=== PATIENT | female | born 1985 | race Two or more races ===

== ENCOUNTER 2020-08-26 07:57 | Emergency (ER) | payer MEDICAID, SELFPAY ==
[2020-08-26 08:14] VITALS: BP 115/66; PULSE 109; RESP 20; TEMP 37.4; O2SAT 98; BMI 21.4
--- NOTE | 2020-08-26 08:25 | ED_ITS ---
HPI - URI/Sore Throat General Chief Complaint: Upper Respiratory Symptoms Stated Complaint: flu like Time Seen by Provider: 08/26/20 08:22 Source: patient Mode of arrival: ambulatory History of Present Illness HPI Narrative: 35-year-old female presenting to ED complaining of dry cough and generalized body aches/myalgias since yesterday. Admits to mild SOB while coughing yesterday. Denies fever at home, chills, CP, recent travel, sick c ontacts, sore throat MD elicited complaint: cough Related Data Allergies Allergy/AdvReac Type Severity Reaction Status Date / Time No Known Allergies Allergy Unverified 07/01/20 17:13 [No Known Allergies*] Review of Systems Review of Systems: Constitutional: No Weight loss, No Fever, No Chills ENT/Mouth: No Ear Pain, No Nasal Congestion, No Sinus Pain, No Hoarseness, No sore throat Cardiovascular: No Chest Pain, + SOB yesterday when coughing Respiratory: + Cough, No Sputum, No Wheezing Gastrointestinal: No Nausea, No Vomiting, No Diarrhea, No Constipation, No Abdominal pain Musculoskeletal: No joint pain, + Myalgias, No Joint Swelling Skin: No Skin Lesions, No rash Yes all other systems are reviewed and are negative PMFSH Past Medical History Attestation statement: The following information was validated with the patient. Medical History History of melanoma Hx of breast lump Surgical History History of loop electrical excision procedure (LEEP) Hx of breast augmentation Hx of oral surgery Hx of tubal ligation Family History Family History Father Diabetes mellitus Mother Hypertension Maternal Grandmother History of breast cancer Social History Social History Alcohol intake: never Smoking Status: Never smoker Advance Directives: No Advance Directives Information Provided: Yes Physical Exam Vital Signs: Vital Signs: Last Vital Signs Temp 99.4 F 08/26/20 08:14 Pulse 109 H 08/26/20 08:14 Resp 20 08/26/20 08:14 BP 115/66 08/26/20 08:14 Pulse Ox 98 08/26/20 08:14 Body Mass Index 21.4 Const: Other: Tearful/crying on exam General: cooperative and healthy appearing Orientation/consciousness: patient oriented x3 Limitations: no limitations HENMT: Head: Yes normal to inspection Ears: hearing grossly normal bilaterally General nose exam: Normal external nose present Face and sinus: Yes normal facial exam Eyes: General: appearance normal, both eyes and all related structures EOM: EOMs intact bilaterally Neck: Neck: Yes normal visual inspection Resp: Effort & Inspection: normal respiratory effort Auscultation: clear to auscultation bilaterally, no crackles, no rales, no rhonchi and no wheezes Cardio: Rate: regular rate Heart sounds: S1 normal heart sound present and S2 normal heart sound present Skin: Rashes: no rashes Wounds: no wounds Neuro: General: patient oriented x3 Gait exam (Neuro): Normal gait present Extrem: General: Yes normal to inspection MDM - URI/Sore Throat MDM Narrative Medical decision making narrative: On exam low-grade temp 99.4?, tachycardic likely from low-grade fever/tearful on exam, NAD/nontoxic-appearing, lungs CTA. Concern for COVID-19/viral syndrome. Low concern for pneumonia, PE, or ACS Discharge Plan Discharge Clinical Impression: Upper respiratory infection Patient Disposition: Home, Self-Care Instructions: Upper Respiratory Infection (ED) Additional Instructions: Based on your symptoms and history we have sent a COVID-19. Although your RESULT IS PENDING at this time. RESULTS should return within 72 hours. At this time you will be contacted with either NEGATIVE OR POSITIVE results. -Please wait until we contact you for your results. At this time you will be okay for discharge. Please plan for self quarantine for up to 14 days. Do not expose yourself to others. You may not go to work. If testing does come back negative you may return to activities as long as you are no longer having any symptoms for at least 3 days. Please continue to follow cold instructions and wash your hands frequently. You may take Tylenol as directed on the bottle for pain or fever. Patient seen in the emergency department on 04/09/2020 and should be excused from work until negative test results AND until 72 hours without any symptoms AND at least 10 days have passed since symptoms first appeared or since last exposure to COVID-19 positive patient CDC Guidelines for home isolation: - Stay away from others - WEAR A MASK if you are sick AND STAY HOME - Cover your mouth and nose with a tissue when you cough or sneeze. Dispose of tissues in a lined trash can and wash your hands immediately with soap and water for at least 20 seconds. If soap and water are not available, clean hands with alcohol-based hand treating plant supervisor that contains at least 60% alcohol. - Clean your hands often with soap and water for at least 20 seconds - Avoid touching your eyes, nose and mouth with unwashed hands - Do not share dishes, drinking glasses, cups, eating utensils, towels, or bedding with other people in your home. After using these items, wash them thoroughly with soap and water or put in the liquefied natural gas operator. - Clean high-touch surfaces in your isolation area ( sick room and bathroom) every day; let a caregiver clean and disinfect high-touch surfaces in other areas of the home. Clean the area or item with soap and water or another detergent if it is dirty. Then, use a household disinfectant. - Limit contact with pets and animals: If you must care for a pet, wash your hands before and after interacting with them) Referrals: Vic Maurer MD [Primary Care Provider] - 3 days Stand Alone Forms: Work/School Release
== END 2020-08-26 08:38 | disposition home or self-care (01) ==
PROVIDERS: Physician Assistant; Emergency Provider Emergency Medicine; PCP Internal Medicine
DX: J06.9 Acute upper respiratory infection, unspecified (principal); R05 Cough; Z20.828 Contact with and (suspected) exposure to other viral communicable diseases
CPT/HCPCS: 99283; U0003

== ENCOUNTER 2020-09-01 12:19 | Outpatient (REF) | payer MEDICAID, SELFPAY | END 2020-09-01 12:20 | disposition home or self-care (01) | LOC: HO.LAB 12:19 | PROVIDERS: Visit Provider Internal Medicine | DX: Z20.828 Contact with and (suspected) exposure to other viral communicable diseases (principal) | CPT/HCPCS: C9803; U0003 ==

== ENCOUNTER 2020-10-26 12:10 | Outpatient (REF) | payer MEDICAID, SELFPAY | END 2020-10-26 12:11 | disposition home or self-care (01) | LOC: HO.LAB 12:10 | PROVIDERS: PCP Internal Medicine; Visit Provider Internal Medicine | DX: Z20.822 Contact with and (suspected) exposure to COVID-19 (principal) | CPT/HCPCS: 36415; C9803; U0003 ==

== ENCOUNTER 2021-01-05 13:24 | Outpatient (REF) | payer MEDICAID, SELFPAY ==
[2021-01-05 17:33] LABS: CT PCR NOT DETECTED (Not Detect.); NG PCR NOT DETECTED (Not Detect.)
[2021-01-06 09:05] LABS: BV Int Neg Control Negative (Negative); BV Int Pos Control Positive (Positive)
== END 2021-01-05 13:25 | disposition home or self-care (01) ==
LOC: HO.LAB 13:24
PROVIDERS: PCP Internal Medicine; Visit Provider Advanced Practice Midwife
DX: Z12.4 Encounter for screening for malignant neoplasm of cervix (principal); Z11.3 Encounter for screening for infections with a predominantly sexual mode of transmission; R10.2 Pelvic and perineal pain
CPT/HCPCS: 81003; 81025; 87480; 87491; 87510; 87591; 87660; 99212

== ENCOUNTER 2021-09-03 09:00 | Emergency (ER) | payer MEDICAID, SELFPAY ==
--- NOTE | ~2021-09-03 | CT_ITS ---
EXAMINATION: CT ABDOMEN AND PELVIS WITH CONTRAST CLINICAL INFORMATION: Right flank pain. UTI symptoms. COMPARISON: . TECHNIQUE: Multidetector volumetric images were obtained from the superior aspect of the liver through the pubic symphysis following administration 85 mL of Omnipaque 350 intravenous contrast. Sagittal and coronal reformatted images were obtained on the technologist's workstation. Oral contrast: No This CT examination was performed using dose optimization techniques as appropriate, variously including the following: *Automated exposure control *Adjustment of mA and/or kV according to patient size (this includes techniques or standardized protocols for targeted exams where dose is matched to indication/reason for exam; i.e. extremities or head) *Use of iterative reconstruction technique DLP: 390 mGy-cm FINDINGS: LUNG BASES: The visualized lung bases are unremarkable. LIVER, GALLBLADDER, AND BILIARY TREE: The liver is normal in size, shape, and attenuation. A circumscribed hypoattenuating lesion in segment 4 measures 0.8 cm unchanged from previous. This is too small to characterize. There is mild periportal edema. There is normal vascular enhancement. No ductal dilatation. There is trace pericholecystic fluid. No cholelithiasis is demonstrated. PANCREAS: Unremarkable. SPLEEN: Unremarkable. ADRENAL GLANDS: Unremarkable. KIDNEYS AND URETERS: There is mild hydroureteronephrosis of the left kidney. No calculus is demonstrated. Both kidneys show normal enhancement with no focal lesion or other abnormality. BLADDER: Unremarkable. GASTROINTESTINAL TRACT: The stomach and duodenum are unremarkable. No abnormality of the small bowel or mesentery is demonstrated. The colon is unremarkable. There is moderate retained stool. The appendix is normal. ABDOMINAL WALL: No significant hernia is appreciated. LYMPH NODES: Normal. VASCULAR: Unremarkable. PELVIC VISCERA: A cyst in the right ovary measures 2.6 cm in diameter. The uterus and left adnexa are unremarkable. Dilated pelvic veins are again demonstrated. There is no free fluid. OSSEOUS STRUCTURES: Unremarkable. CT/CT abdomen pelvis w con IMPRESSION: 1. Mild periportal edema with trace pericholecystic free fluid. Correlation with liver enzymes is suggested to assess for possible inflammation. 2. Mild left hydroureteronephrosis. No obstructing calculus or other abnormality demonstrated. 3. 2.6 cm cyst right ovary.
[2021-09-03 09:11] VITALS: BP 105/67; PULSE 70; RESP 16; TEMP 36.4; O2SAT 100; BMI 22.4
[2021-09-03 10:06] LABS: Appearance Urine HAZY; Color Urine STRAW; Glucose Urine UA NEG (NEG); Leukocyte Esterase Urine 3+ (NEG); Nitrite Urine NEG (NEG); Specific Gravity - Urine <= 1.005 (1.005-1.025); UACC Culture Trigger YES; UPreg QC Valid YES; Urine Blood 2+ (NEG); Urine Ketones NEG (NEG); Urine Pregnancy NEGATIVE (NEGATIVE); Urine Protein NEG (NEG-TRACE)
--- NOTE | 2021-09-03 10:08 | ED_ITS ---
HPI - Female Genitourinary General Chief complaint: Urogenital-Female Stated complaint: Urogenital female Time Seen by Provider: 09/03/21 09:53 Source: patient and online program coordinator Mode of arrival: ambulatory Limitations: language barrier History of Present Illness HPI Narrative: 36-year-old female previously healthy here with complaints of urinary frequency for about 3-4 days. Last evening the patient was having some urinary urgency but having very small amounts of urine and only dribbling flank she was not emptying her bladder completely. Also having some suprapubic pressure and right flank pain. No nausea, vomiting, fevers, chills, diarrhea. Patient is not sexually active. She denies any vaginal discharge, rashes or lesions. She is status post tubal ligation Related Data Previous Rx's Medication Instructions Recorded fluconazole 150 mg tablet 150 mg PO DAILY #1 tab 01/11/21 (Diflucan) ciprofloxacin HCl 500 mg tablet 500 mg PO BID #14 tab 09/03/21 oxycodone 5 mg tablet 5 mg PO Q8H PRN #8 tab 09/03/21 phenazopyridine 200 mg tablet 200 mg PO TID PRN #10 tab 09/03/21 (Pyridium) Allergies Allergy/AdvReac Type Severity Reaction Status Date / Time No Known Allergies Allergy Unverified 07/01/20 17:13 [No Known Allergies*] Review of Systems Review of Systems: Yes all other systems are reviewed and are negative Constitutional: Constitutional: Reports no additional constitutional complaints, Denies body ache(s), Denies chills, Denies fever(s), Denies headache(s) and Denies weakness Eyes: Eyes: Reports no additional eye complaints and Denies change in vision ENT: Reports system reviewed and no additional complaints, except as documented, Denies dizziness, Denies headache(s), Denies nasal congestion, Denies nasal discharge and Denies neck pain Cardiovascular: Cardiovascular: Reports no additional cardiovascular complaints, Denies chest pain, Denies leg edema and Denies dyspnea Respiratory: Respiratory: Reports no additional respiratory complaints, Denies cough and Denies dyspnea Gastrointestinal: Gastrointestinal: Reports no additional gastrointestinal complaints, Denies abdominal pain, Denies diarrhea, Denies nausea and Denies vomiting Genitourinary: Genitourinary: Reports no additional female genitourinary complaints, Reports difficulty voiding, Reports post void dribbling, Reports dysuria, Reports flank pain, Denies urinary incontinence, Reports urinary hesitancy and Denies vaginal discharge Musculoskeletal: Musculoskeletal: Reports no additional musculoskeletal complaints, Denies back pain, Denies arthralgias, Denies joint swelling, Denies neck pain, Denies numbness and Denies tingling Integumentary/Breasts: Skin/Breast: Reports system reviewed and no additional complaints, except as docu and Denies rash Neurologic: Reports system reviewed and no additional complaints, except as do cumented, Denies Abnormal speech present, Denies dizziness, Denies headache(s), Denies numbness, Denies tingling and Denies weakness PMFSH Past Medical History Attestation statement: The following information was validated with the patient. Source: old records reviewed and nursing notes reviewed Medical History History of melanoma Hx of breast lump Surgical History History of loop electrical excision procedure (LEEP) Hx of breast augmentation Hx of oral surgery Hx of tubal ligation Family History Family History Father Diabetes mellitus Mother Hypertension Maternal Grandmother History of breast cancer Social History Social History Alcohol intake: never Advance Directives: No Advance Directives Information Provided: Yes Physical Exam Vital Signs: Vital Signs: Last Vital Signs Temp 97.5 F 09/03/21 09:11 Pulse 70 09/03/21 09:11 Resp 16 09/03/21 09:11 BP 105/67 09/03/21 09:11 Pulse Ox 100 09/03/21 09:11 Body Mass Index 22.4 Const: General: cooperative, healthy appearing, comfortable and no acute distress Orientation/consciousness: patient oriented x3 Limitations: no limitations HENMT: Head: Yes normal to inspection Ears: hearing grossly normal bilaterally General nose exam: Normal external nose present Face and sinus: Yes normal facial exam Mouth: Normal oral and palatal mucosa present Throat: Yes posterior oropharynx normal Eyes: General: appearance normal, both eyes and all related structures Pupils: Equal, round and reactive pupils present Neck: Neck: Yes normal visual inspection Chest: Chest palpation & inspection: normal inspection of the chest Resp: Effort & Inspection: normal respiratory effort Auscultation: clear to auscultation bilaterally Cardio: Rate: regular rate Rhythm: regular rhythm Peripheral pulses: Peripheral pulses 2+ throughout GI: Inspection: Yes normal to inspection Palpation (GI): Soft to palpation and nontender Auscultation: normal bowel sounds : General: Yes CVA tenderness ( right-side) Back/Spine/Pelvis: Back: CVA tenderness ( right-side) Thoracic/Lumbar Spine: thoracic and lumbar spine normal to inspection Skin: General skin exam: no rashes or lesions noted Neuro: General: patient oriented x3, no focal motor deficits and normal sensation to monofilament Cranial nerves: Yes Equal, round and reactive pupils present Cognition (Neuro): normal cognition Speech: No Abnormal speech present Gait exam (Neuro): Normal gait present Motor exam (neuro): 5/5 motor strength present throughout Extrem: General: Yes normal to inspection Course Course Course Narrative: 36-year-old female here with several days of urinary frequency and right flank pain with suprapubic pressure. last night increased urgency with painful urination and dribbling after urination with a sensation that she was not completely emptying her bladder. initial bladder scan showed 350ml, PVR <120ml. will check labs, UA. on exam patient has right CVA tenderness will check CT abdomen and pelvis to rule out pyelonephritis versus renal colic 1320- CT IMPRESSION: ? 1. Mild periportal edema with trace pericholecystic free fluid. Correlation with liver enzymes is suggested to assess for possible inflammation. 2. Mild left hydroureteronephrosis. No obstructing calculus or other abnormality demonstrated. 3. 2.6 cm cyst right ovary.? Add on LFTs, lipase. Urine is consistent with UTI. Patient is feeling much more comfortable.. 1430-LFTs are normal. I spoke to the patient. She has no abdominal pain. I reviewed the CT scan results with her. Recommended she follow-up with your primary care doctor in regards to the mild periportal edema. CT shows no evidence of renal colic or pyelonephritis. Clinically patient does have an exam that is concerning for pyelonephritis I will treat her as such. Reviewed worrisome signs and symptoms of when to return to the emergency department. Comfortable discharge home. MDM - Female Genitourinary MDM Narrative Medical decision making narrative: UTI, pyelonephritis, renal colic Medical Records Attestation: I reviewed the patient's medical records. Lab Data Attestation: I reviewed the patient's lab results. Result diagrams: 09/03/21 10:28 09/03/21 10:28 Labs: Lab Results 09/03/21 09/03/21 09/03/21 Range/Units 09:58 09:58 10:28 WBC 11.4 H (4.8-10.8) X10*3/uL RBC 4.59 (4.20-5.50) X10*6/uL Hgb 12.8 (12.0-16.0) g/dl Hct 40.1 (37.0-47.0) % MCV 87.4 (80.0-98.0) fL MCH 27.9 (27.0-33.0) pg MCHC 31.9 (31.0-35.0) g/dl RDW 12.4 (11.0-16.0) % Plt Count 249 (160-400) X10*3/uL MPV 12.0 (9.4-12.3) fL Immature Gran % (Auto) 0.4 (0.0-0.4) % Neut % (Auto) 76.1 H (45-73) % Lymph % (Auto) 17.1 L (20-40) % [place] % (Auto) 5.1 (2-11) % Eos % (Auto) 1.1 (0-4) % Baso % (Auto) 0.2 (0-2) % Lymph # (Auto) 1.9 (1.2-4.9) X10*3/uL [place] # (Auto) 0.6 (0.1-1.2) X10*3/uL Eos # (Auto) 0.1 (0.0-0.4) X10*3/uL Baso # (Auto) 0.0 (0.0-0.2) X10*3/uL Abs Immat Gran (auto) 0.05 H (0.00-0.03) X10*3/uL Absolute Neuts (auto) 8.7 H (2.0-8.3) x10*3/uL Absolute Nucleated RBC 0.000 (0.0-0.012) X10*3/uL Nucleated RBC % (auto) 0.0 (0.0-0.2) /100WBC Sodium (135-145) mmol/L Potassium (3.3-5.1) mmol/L Chloride (96-108) mmol/L Carbon Dioxide (22-29) mmol/L Anion Gap (12-20) BUN (9-16) mg/dL Creatinine (0.5-1.4) mg/dL Estim Creat Clear Calc Estimated GFR Random Glucose (60-115) mg/dL Calcium (8.4-10.2) mg/dL Total Bilirubin (0.0-1.0) mg/dL Direct Bilirubin (0.0-0.5) mg/dL AST (5-31) U/L ALT (0-31) U/L Alkaline Phosphatase (39-117) U/L Total Protein (6.5-8.0) g/dL Albumin (3.5-5.0) g/dL Lipase (8-78) U/L Urine Color STRAW Urine Appearance HAZY Urine pH 6.0 (5.0-8.0) Ur Specific [place] <= 1.005 (1.005-1.025) Urine Protein NEG (NEG-TRACE) MG/DL Urine Glucose (UA) NEG (NEG) MG/DL Urine Ketones NEG (NEG) MG/DL Urine Blood 2+ H (NEG) Urine Nitrite NEG (NEG) Ur Leukocyte Esterase 3+ H (NEG) Urine RBC 1-4 (0) /HPF Urine WBC 50-75 H (0-4) /HPF Urine WBC Clumps NOTED Ur Squamous Epith Cells 1+ /LPF Urine Bacteria TRACE /LPF Urine Test NEGATIVE (NEGATIVE) 09/03/21 Range/Units 10:28 WBC (4.8-10.8) X10*3/uL RBC (4.20-5.50) X10*6/uL Hgb (12.0-16.0) g/dl Hct (37.0-47.0) % MCV (80.0-98.0) fL MCH (27.0-33.0) pg MCHC (31.0-35.0) g/dl RDW (11.0-16.0) % Plt Count (160-400) X10*3/uL MPV (9.4-12.3) fL Immature Gran % (Auto) (0.0-0.4) % Neut % (Auto) (45-73) % Lymph % (Auto) (20-40) % [place] % (Auto) (2-11) % Eos % (Auto) (0-4) % Baso % (Auto) (0-2) % Lymph # (Auto) (1.2-4.9) X10*3/uL [place] # (Auto) (0.1-1.2) X10*3/uL Eos # (Auto) (0.0-0.4) X10*3/uL Baso # (Auto) (0.0-0.2) X10*3/uL Abs Immat Gran (auto) (0.00-0.03) X10*3/uL Absolute Neuts (auto) (2.0-8.3) x10*3/uL Absolute Nucleated RBC (0.0-0.012) X10*3/uL Nucleated RBC % (auto) (0.0-0.2) /100WBC Sodium 139 (135-145) mmol/L Potassium 3.8 (3.3-5.1) mmol/L Chloride 106 (96-108) mmol/L Carbon Dioxide 27 (22-29) mmol/L Anion Gap 10 L (12-20) BUN 8 L (9-16) mg/dL Creatinine 0.68 (0.5-1.4) mg/dL Estim Creat Clear Calc 89.5 Estimated GFR > 60 Random Glucose 93 (60-115) mg/dL Calcium 8.8 (8.4-10.2) mg/dL Total Bilirubin 0.4 (0.0-1.0) mg/dL Direct Bilirubin 0.2 (0.0-0.5) mg/dL AST 13 (5-31) U/L ALT 12 (0-31) U/L Alkaline Phosphatase 71 (39-117) U/L Total Protein 6.5 (6.5-8.0) g/dL Albumin 4.0 (3.5-5.0) g/dL Lipase 12 (8-78) U/L Urine Color Urine Appearance Urine pH (5.0-8.0) Ur Specific [place] (1.005-1.025) Urine Protein (NEG-TRACE) MG/DL Urine Glucose (UA) (NEG) MG/DL Urine Ketones (NEG) MG/DL Urine Blood (NEG) Urine Nitrite (NEG) Ur Leukocyte Esterase (NEG) Urine RBC (0) /HPF Urine WBC (0-4) /HPF Urine WBC Clumps Ur Squamous Epith Cells /LPF Urine Bacteria /LPF Urine Test (NEGATIVE) Imaging Data CT scan - abdomen: Attestation: I personally reviewed and interpreted this imaging study as follows: Radiologist's impression: IMPRESSION: ? 1. Mild periportal edema with trace pericholecystic free fluid. Correlation with liver enzymes is suggested to assess for possible inflammation. 2. Mild left hydroureteronephrosis. No obstructing calculus or other abnormality demonstrated. 3. 2.6 cm cyst right ovary.? Discharge Plan Discharge Clinical Impression: Urinary tract infection, Pyelonephritis Patient Disposition: Home, Self-Care Instructions: Urinary Tract Infection in Women (ED), Kidney Infection (ED) Additional Instructions: Increase fluids, rest Your CT scan showed a small amount of inflammation around her liver. Do need to follow-up with your outpatient providers and may need to have a an ultrasound of this area. This is not what is causing your pain today. Prescriptions: New ciprofloxacin HCl 500 mg tablet 500 mg PO BID Qty: 14 RF: 0 phenazopyridine [Pyridium] 200 mg tablet 200 mg PO TID PRN (Reason: pain) Qty: 10 RF: 0 oxycodone 5 mg tablet 5 mg PO Q8H PRN (Reason: pain) Qty: 8 RF: 0 No Action fluconazole [Diflucan] 150 mg tablet 150 mg PO DAILY Qty: 1 RF: 0 Referrals: [facility] [Primary Care Provider] - 2 days Stand Alone Forms: Work/School Release Print Language: Tajik
[2021-09-03 10:16] LABS: Bacteria Urine TRACE /LPF; Squamous Epithelial Cell Urine 1+ /LPF; UACC CULT YES; WBC Clumps Urine NOTED; WBC Urine 50-75 /HPF (0-4)
[2021-09-03] MEDS: Ketorolac Tromethamine 15 MG/ML VIAL 30 MG IVPUSH (10:32)
[2021-09-03] MEDS: 0.9 % Sodium Chloride 1,000 ML 999 ML IV (10:32)
[2021-09-03 10:33] LABS: MANUAL DIFF FLAG NO
[2021-09-03 10:54] LABS: Basophils Percent Auto 0.2 % (0-2); Eosinophils Absolute Auto 0.1 X10*3/uL (0.0-0.4); Eosinophils Percent Auto 1.1 % (0-4); Hematocrit 40.1 % (37.0-47.0); Hemoglobin 12.8 g/dl (12.0-16.0); Imm Gran Abs Auto 0.05 X10*3/uL (0.00-0.03); Imm Gran Pct Auto 0.4 % (0.0-0.4); Lymphocytes Absolute Auto 1.9 X10*3/uL (1.2-4.9); Lymphocytes Percent Auto 17.1 % (20-40); Mean Corpuscular HGB Conc 31.9 g/dl (31.0-35.0); Mean Corpuscular Hemoglobin 27.9 pg (27.0-33.0); Mean Corpuscular Volume 87.4 fL (80.0-98.0); Monocytes Absolute Auto 0.6 X10*3/uL (0.1-1.2); Monocytes Percent Auto 5.1 % (2-11); Neutrophils Absolute Auto 8.7 x10*3/uL (2.0-8.3); Neutrophils Percent Auto 76.1 % (45-73); Platelet Count 249 X10*3/uL (160-400); Red Blood Count 4.59 X10*6/uL (4.20-5.50); Red Cell Distribution Width 12.4 % (11.0-16.0); White Blood Count 11.4 X10*3/uL (4.8-10.8)
[2021-09-03 11:05] LABS: Anion Gap 10 (12-20); Blood Urea Nitrogen 8 mg/dL (9-16); Calcium 8.8 mg/dL (8.4-10.2); Carbon Dioxide 27 mmol/L (22-29); Chloride 106 mmol/L (96-108); Creatinine Clr Calc Pharmacy 89.5; Estimated Glomerular Filt Rate > 60; Glucose Random 93 mg/dL (60-115); Potassium 3.8 mmol/L (3.3-5.1); Sodium 139 mmol/L (135-145)
[2021-09-03] MEDS: iohexoL 350 MG/ML 100 ML INFUS..BTL 85 ML IV (12:02)
--- NOTE | 2021-09-03 13:14 | PC.NURSE ---
sleeping, nad, skin wpd, labs added to prev specimen
[2021-09-03 13:41] LABS: Alanine Aminotransferase 12 U/L (0-31); Alkaline Phosphatase 71 U/L (39-117); Aspartate Amino Transferase 13 U/L (5-31); Bilirubin Direct 0.2 mg/dL (0.0-0.5); Bilirubin Total 0.4 mg/dL (0.0-1.0); Lipase 12 U/L (8-78); Total Protein 6.5 g/dL (6.5-8.0)
== END 2021-09-03 15:10 | disposition home or self-care (01) ==
PROVIDERS: Nurse Practitioner Family; Emergency Provider Emergency Medicine Emergency Medical Services
DX: N39.0 Urinary tract infection, site not specified (principal); N12 Tubulo-interstitial nephritis, not specified as acute or chronic; Z98.51 Tubal ligation status
CPT/HCPCS: 36415; 51798; 74177; 80048; 80076; 81001; 81025; 83690; 85025; 87086; 96361; 96374; 99284; J1885; Q9967

== ENCOUNTER 2021-09-13 13:59 | Outpatient (REF) | payer MEDICAID, SELFPAY ==
[2021-09-14 09:31] LABS: CT PCR NOT DETECTED (Not Detect.); NG PCR NOT DETECTED (Not Detect.)
[2021-09-14 10:02] LABS: BV Int Neg Control Negative (Negative); BV Int Pos Control Positive (Positive)
== END 2021-09-13 14:00 | disposition home or self-care (01) ==
LOC: HO.LAB 13:59
PROVIDERS: Visit Provider Obstetrics & Gynecology
DX: R10.2 Pelvic and perineal pain (principal); B96.89 Other specified bacterial agents as the cause of diseases classified elsewhere; N76.0 Acute vaginitis
CPT/HCPCS: 87480; 87491; 87510; 87591; 87660; 99212

== ENCOUNTER 2021-09-14 13:59 | Outpatient (REF) | payer MEDICAID, SELFPAY ==
[2021-09-14 15:08] LABS: ~HepC Num1 0.14 S/CO (0.00-0.79); ~Hepatitis C Antibody Nonreactive (Nonreactive)
[2021-09-14 15:10] LABS: Syphilis Screen Nonreactive (Nonreactive)
[2021-09-14 15:11] LABS: HBsAGNum1 0.25 S/CO (0.00-0.99); HIV AB/AG Nonreactive (Nonreactive); HIV Num 1 0.07 S/CO (0.00-0.99); Hepatitis B Surface Antigen Negative (Negative)
== END 2021-09-14 14:00 | disposition home or self-care (01) ==
LOC: HO.LAB 13:59
PROVIDERS: PCP Internal Medicine; Visit Provider Obstetrics & Gynecology
DX: Z11.4 Encounter for screening for human immunodeficiency virus [HIV] (principal); B96.89 Other specified bacterial agents as the cause of diseases classified elsewhere; N76.0 Acute vaginitis
CPT/HCPCS: 36415; 86780; 86803; 87340; 87389

== ENCOUNTER → 2021-10-03 15:15 | Outpatient (BNVA) | payer MEDICAID, SELFPAY | PROVIDERS: PCP Internal Medicine; Visit Provider Advanced Practice Midwife ==

== ENCOUNTER 2021-10-13 09:23 | Outpatient (REF) | payer MEDICAID, SELFPAY ==
--- NOTE | ~2021-10-13 | MM_ITS ---
EXAMINATION: MM DIAGNOSTIC DIGITAL BREAST TOMOSYNTHESIS, BILATERAL US DIAGNOSTIC ULTRASOUND BREAST, RIGHT CLINICAL INFORMATION: 36-year-old with posterior upper outer right breast pain. No palpable mass. No erythema. No discharge. Prior history ultrasound-guided right breast biopsy 03/01/2018 (fibroadenoma). Also personal history of melanoma left upper extremity. The lifetime risk of breast cancer based on the Tyrer-Cuzick Model is 11%. COMPARISON: No prior mammography. Comparison made with ultrasound right breast 02/15/2018 and ultrasound-guided biopsy 03/01/2018. TECHNIQUE: Digital breast tomosynthesis is performed in both the craniocaudal and mediolateral oblique views along with computer-aided detection (CAD). Synthesized 2D images are generated from the tomosynthesis. Ultrasound right breast is targeted to the area of clinical concern. Patient is able to point to the area of concern at time of imaging. Grayscale imaging and color Doppler are performed without and with harmonics. FINDINGS: There are scattered areas of fibroglandular density (ACR BI-RADS breast composition Category b). There are bilateral implants. The implant contours are smooth. The implants appears symmetric. There is no mass or architectural abnormality or abnormal calcifications. No adenopathy. There are left axillary surgical clips present. No skin thickening or coarsening of the Chris's ligaments. Ultrasound targeted to the area of symptoms demonstrates no cystic or solid mass or axillary adenopathy. No skin thickening, duct ectasia, or edema tracking in soft tissue planes. Results are discussed with the patient at time of visit. MM/MM tomosynthesis diag imp BI IMPRESSION: No mammographic evidence of malignancy or inflammatory changes. Unremarkable targeted right breast ultrasound. ASSESSMENT: BI-RADS 2: Benign RECOMMENDATION: 1. Patient's right breast pain/tenderness should be managed based on the clinical impression. 2. Otherwise, routine annual screening mammography, beginning age 40, or earlier as clinical risk factors warrant. This patient's information was entered into a reminder system with a target due date for their next mammogram.
== END 2021-10-13 09:24 | disposition home or self-care (01) ==
LOC: HO.MAMMO 09:23
PROVIDERS: Visit Provider Advanced Practice Midwife
DX: N64.4 Mastodynia (principal); Z85.820 Personal history of malignant melanoma of skin; Z98.82 Breast implant status
CPT/HCPCS: 76642; 77062; 77066

== ENCOUNTER → 2021-10-17 14:03 | Outpatient (BNVA) | payer MEDICAID, SELFPAY | PROVIDERS: PCP Internal Medicine; Visit Provider Obstetrics & Gynecology ==

== ENCOUNTER 2022-02-08 10:07 | Emergency (ER) | payer MEDICAID, SELFPAY ==
--- NOTE | 2022-02-08 11:22 | ED.URI ---
HPI - URI/Sore Throat General Chief Complaint: Upper Respiratory Symptoms Stated Complaint: Cough/Fever/Body aches Time Seen by Provider: 02/08/22 10:28 Source: patient Mode of arrival: ambulatory Limitations: no limitations History of Present Illness HPI Narrative: 36-year-old female presents for 3 days runny nose, congestion, body aches, cough, subjective fevers, sore throat radiating into her ears, nausea. No sick contacts. Patient has had 2 COVID vaccinations Patient had a negative at home COVID test yesterday. She took Motrin earlier today. No vomiting, diarrhea, abdominal pain, urinary symptoms, chest pain nor shortness of breath. Related Data Allergies Allergy/AdvReac Type Severity Reaction Status Date / Time No Known Allergies Allergy Verified 10/17/21 14:13 [No Known Allergies*] Review of Systems Constitutional: Constitutional: Reports body ache(s), Reports chills, Reports fatigue and Reports lethargy Eyes: Eyes: Denies blurry vision, Denies change in vision and Denies diplopia ENT: Reports otalgia, Reports nasal discharge, Denies odynophagia, Denies disequilibrium, Reports post nasal drip, Denies sinus pain and Reports sore throat Cardiovascular: Cardiovascular: Denies chest pain and Denies dyspnea Respiratory: Respiratory: Reports chest congestion, Reports cough and Denies dyspnea Gastrointestinal: Gastrointestinal: Denies abdominal pain, Denies melena, Denies hematochezia, Denies diarrhea, Reports nausea, Denies odynophagia, Denies vomiting and Denies hematemesis Genitourinary: Genitourinary: Reports no additional female genitourinary complaints Musculoskeletal: Musculoskeletal: Reports myalgias Integumentary/Breasts: Skin/Breast: Denies rash Neurologic: Denies disequilibrium Endocrine: Endocrine: Reports fatigue PMFSH Past Medical History Medical History History of melanoma Hx of breast lump Surgical History History of loop electrical excision procedure (LEEP) Hx of breast augmentation Hx of oral surgery Hx of tubal ligation Family History Family History Father Diabetes mellitus Mother Hypertension Maternal Grandmother History of breast cancer Maternal Aunt History of breast cancer Social History Social History (System 10/06/21 @ 11:10 by Anushka Santos) Alcohol intake: never Patient Tobacco Use Status: Never used Tobacco Advance Directives: No Advance Directives Information Provided: No Patient : No Physical Exam Vital Signs: Vital Signs: Last Vital Signs Temp 98.6 F 02/08/22 11:51 Pulse 97 02/08/22 11:51 Resp 17 02/08/22 11:51 BP 95/59 L 02/08/22 11:51 Pulse Ox 99 02/08/22 11:51 BMI result Body Mass Index 22.3 Const: General: cooperative, well developed, alert, awake, acute distress mild and ill appearing acutely Nutritional Appearance: well nourished Orientation/consciousness: patient oriented x3 Limitations: no limitations HEENT: Head: Yes normal to inspection, Yes normocephalic and Yes atraumatic Ears: hearing grossly normal bilaterally, external ears normal, TM's normal bilaterally and EAC's not normal (Mildly erythematous, no edema) General nose exam: Normal external nose present and Nasal discharge present clear Face and sinus: Yes normal facial exam and Yes sinuses nontender Mouth: Normal oral and palatal mucosa present, lip normal, tongue normal, moist mucous membranes and no muffled voice Throat: Yes posterior oropharynx abnormal and Yes postnasal drainage Eyes: Conjunctivae: conjunctivae normal Pupils: Equal, round and reactive pupils present EOM: EOMs intact bilaterally Neck: Neck: Yes full ROM, Yes no lymphadenopathy and Yes supple Resp: Effort & Inspection: normal respiratory effort and able to speak in complete sentences Auscultation: clear to auscultation bilaterally, no crackles, no rales, no rhonchi and no wheezes Cardio: Rate: regular rate Rhythm: regular rhythm Heart sounds: S1 normal heart sound present and S2 normal heart sound present GI: Inspection: Yes normal to inspection Palpation (GI): Soft to palpation, nontender, no guarding and not rigid Percussion: Yes normal to percussion Auscultation: normal bowel sounds Skin: General skin exam: no rashes or lesions noted Neuro: General: patient oriented x3, tone normal and moves all extremities Cranial nerves: Yes Equal, round and reactive pupils present Extrem: General: Yes normal to inspection and Yes full ROM Psych: Appearance: grossly normal Affect: normal affect Attitude: cooperative Thought process: Normal thought process present Course Course Course Narrative: 36-year-old female who is acutely ill-appearing presents for 3 days of upper respiratory symptoms. On exam, vitals are stable, patient is afebrile, not tachycardic, satting 99% on room air, no respiratory distress. lungs clear to auscultation bilaterally, oropharynx mildly injected. COVID, flu swabbed gave Tylenol Reevaluation(s) Reevaluation #1: Patient tested positive for influenza A. Asw/[employer], fluids, rest, alternate Tylenol and ibuprofen, use a Neti pot. Gave return precautions. We did discuss Tamiflu, however patient is outside of the treatment window MDM - URI/Sore Throat Lab Data Labs: Lab Results 02/08/22 02/08/22 Range/Units 11:46 11:46 COVID-19 (PABLO) Negative (Negative) COVID-19 Clin Com See Note Influenza Type A (CAROL) Positive A (Negative) Influenza Type B (CAROL) Negative (Negative) Influenza A & B Note See Note Discharge Plan Discharge Clinical Impression: Influenza Patient Disposition: Home, Self-Care Instructions: Influenza (ED) Additional Instructions: You are diagnosed with influenza today. Please go home and rest. I want you to alternate Tylenol and ibuprofen for headache, and please by the [employer] Med Sinus Rinse that we discussed. Using this sinus rinse will help tremendously with her nasal congestion. Please drink 2-3 L of water a day while you are ill. Please note that influenza will run its course, but does not usually lasts longer than a week. Hopefully you are at the peak of symptoms now. Please know that your contagious will you have a fever and while you have symptoms. Please wash her hands and wear mask in the house you do not transmit influenza. Please return to emergency room if you have any new or concerning symptoms, including chest pain, shortness of breath, not being able to eat or drink due to vomiting.
[2022-02-08] MEDS: Acetaminophen 325 MG TABLET 975 MG PO (11:27)
[2022-02-08 11:31] VITALS: BP 95/59; PULSE 97; RESP 17; TEMP 37; O2SAT 99; BMI 22.3
[2022-02-08 11:51] VITALS: BP 95/59; PULSE 97; RESP 17; TEMP 37; O2SAT 99
[2022-02-08 12:13] LABS: COVID-19 Test Negative (Negative)
[2022-02-08 12:30] LABS: Influenza A Positive (Negative); Influenza B2 Negative (Negative)
== END 2022-02-08 12:50 | disposition home or self-care (01) ==
PROVIDERS: Emergency Provider Emergency Medicine; PCP Internal Medicine
DX: J11.1 Influenza due to unidentified influenza virus with other respiratory manifestations (principal); Z20.822 Contact with and (suspected) exposure to COVID-19
CPT/HCPCS: 87502; 87635; 99283; 99284

== ENCOUNTER 2022-02-09 09:08 | Outpatient (REF) | payer MEDICAID, SELFPAY ==
--- NOTE | ~2022-02-09 | US_ITS ---
EXAMINATION: US ABDOMEN COMPLETE CLINICAL INFORMATION: Abnormal findings on diagnostic imaging of the abdominal region. COMPARISON: CT abdomen and pelvis 09/03/2021. TECHNIQUE: Real-time imaging of the abdominal viscera. FINDINGS: PANCREAS: Normal. ABDOMINAL AORTA: The proximal, mid, and distal segments are normal in caliber. INFERIOR VENA CAVA: Visualized portions are normal. LIVER: The liver is normal in size. The liver contour is normal. Parenchymal echogenicity is normal. There is an echogenic lesion in the right hepatic lobe measuring 0.9 x 0.9 x 1.0 cm. There is no intrahepatic biliary duct dilatation seen. GALLBLADDER: The gallbladder appears contracted with minimal 0.25 cm wall thickening. COMMON BILE DUCT: Normal in caliber measuring 0.3 cm in diameter. RIGHT KIDNEY: Normal. No hydronephrosis. No renal calculi or focal parenchymal lesions. The kidney measures 10.2 cm in maximum dimension. LEFT KIDNEY: Normal. No hydronephrosis. No renal calculi or focal parenchymal lesions. The kidney measures 10.9 cm in maximum dimension. SPLEEN: Normal. The spleen measures 10.2 cm in maximum dimension. FREE FLUID: None. US/US abdomen complete IMPRESSION: Small echogenic area in the right hepatic lobe, likely a small hemangioma measuring 1.0 cm. This was visualized in segment [address] exam 09/03/2021 The rest of the abdominal ultrasound is unremarkable.
== END 2022-02-09 09:09 | disposition home or self-care (01) ==
LOC: HO.US 09:08
PROVIDERS: Visit Provider Internal Medicine
DX: R93.5 Abnormal findings on diagnostic imaging of other abdominal regions, including retroperitoneum (principal)
CPT/HCPCS: 76700

== ENCOUNTER 2022-02-14 10:47 | Outpatient (REF) | payer MEDICAID, SELFPAY ==
--- NOTE | ~2022-02-14 | US_ITS ---
EXAMINATION: US PELVIS CLINICAL INFORMATION: Right ovarian cyst. COMPARISON: None. TECHNIQUE: Ultrasound of the pelvis is performed using both transabdominal and transvaginal transducers along with Doppler. Transvaginal imaging is performed due to inadequate visualization transabdominally. FINDINGS: Uterus: The uterus is anteverted and measures 11.0 x 5.1 x 6.5 cm. The double wall endometrial thickness is 5 mm. The uterus is smooth in contour and has normal myometrial echogenicity. No visible fibroid. Adnexa: Both ovaries are visualized. There is normal color flow to the adnexa. There is no ovarian torsion. There is no pelvic ascites or fluid collection. Right ovary measures 2.5 x 1.2 x 2.4 cm and volume 3.8 mL. Previously it measured 3.0 x 2.1 x 2.1 cm. Left ovary measures 20.6 x 2.0 x 2.5 cm and volume 6.8 mL. Previously it ovary measured 4.0 x 2.0 x 2.1 cm. US/US pelvic and transvaginal IMPRESSION: Unremarkable uterus and ovaries.
== END 2022-02-14 10:48 | disposition home or self-care (01) ==
LOC: HO.US 10:47
PROVIDERS: Visit Provider Internal Medicine
DX: N83.201 Unspecified ovarian cyst, right side (principal)
CPT/HCPCS: 76830; 76856

== ENCOUNTER 2022-04-17 20:50 | Emergency (ER) | payer MEDICAID, SELFPAY ==
[2022-04-17 21:40] VITALS: BP 110/55; PULSE 72; RESP 17; TEMP 36.8; O2SAT 100; BMI 21.6
[2022-04-18 00:03] LABS: COVID-19 Test Negative (Negative)
[2022-04-18 00:04] LABS: IDNOW Serial# 16C4AD1C; Influenza A Negative (Negative); Influenza B2 Negative (Negative)
[2022-04-18 00:05] LABS: Strep A Nucleic Acid Negative (Negative)
--- NOTE | 2022-04-18 00:06 | ED_ITS ---
HPI - General Adult General Chief complaint: Ear Problems Stated complaint: Earache Source: patient Mode of arrival: ambulatory Limitations: no limitations History of Present Illness HPI narrative: 36 yold female presents to the ED for right ear pain, sore throat, bodyaches, and chills since yesterday. patient state no chest pain or shortness of breath. patient states no abdominal pain, flank pain, dysuria, hematuria, or neck stiffnes Related Data Previous Rx's Medication Instructions Recorded amoxicillin 500 mg capsule 500 mg PO Q12H 10 days #20 caps 04/18/22 naproxen 500 mg tablet 500 mg PO BID PRN pain 10 days #20 04/18/22 tabs Allergies Allergy/AdvReac Type Severity Reaction Status Date / Time No Known Allergies Allergy Verified 04/17/22 21:45 [No Known Allergies*] Review of Systems Review of Systems: sore throat, right ear pain, and chills Yes all other systems are reviewed and are negative PMFSH Past Medical History Medical History History of melanoma Hx of breast lump Surgical History History of loop electrical excision procedure (LEEP) Hx of breast augmentation Hx of oral surgery Hx of tubal ligation Family History Family History Father Diabetes mellitus Mother Hypertension Maternal Grandmother History of breast cancer Maternal Aunt History of breast cancer Social History Social History (System 10/06/21 @ 11:10 by Anushka Santos) Alcohol intake: never Patient Tobacco Use Status: Never used Tobacco Advance Directives: No Advance Directives Information Provided: No Physical Exam ED Vital Signs: Vital Signs - 24 hr 04/17/22 21:40 Temperature 98.2 F Pulse Rate 72 Respiratory Rate 17 Blood Pressure 110/55 L Pulse Oximetry 100 Oxygen Delivery Method Room Air BMI result Body Mass Index 21.6 Const General: cooperative, healthy appearing, comfortable, no acute distress, well developed, alert, awake and Physically active Orientation/consciousness: oriented to time and patient oriented x3 HENMT Head: Yes normal to inspection, Yes No palpable skull fracture present, Yes normocephalic, Yes atraumatic and No abrasion Ears: hearing grossly normal bilaterally, external ears normal, TM normal on the left, EAC's normal, mastoids normal, no periauricular adenopathy and TM abnormal erythematous (right) Throat: Yes posterior oropharynx normal, Yes tonsils normal and Yes uvula mid line Eyes General: appearance normal, both eyes and all related structures Neck Neck: Yes normal visual inspection, Yes full ROM, Yes no lymphadenopathy, Yes no meningeal signs, Yes trachea midline, Yes supple, No anterior neck swelling and No tender Chest Chest palpation & inspection: normal inspection of the chest and normal palpation of entire chest wall Resp Effort & Inspection: normal respiratory effort and able to speak in complete sentences Auscultation: clear to auscultation bilaterally Cardio Jugular venous distension: no JVD Heart sounds: S1 normal heart sound present and S2 normal heart sound present GI Inspection: Yes normal to inspection and No abdominal wall ecchymosis Palpation (GI): Soft to palpation, not firm, nontender, no guarding and not rigid General: No CVA tenderness and Yes no CVA tenderness Back/Spine/Pelvis Back: no CVA tenderness, No CVA tenderness and No back tenderness Skin General skin exam: no rashes or lesions noted and elasticity normal Neuro General: oriented to time, patient oriented x3, no meningeal signs and CN's II- XI intact bilaterally Cranial nerves: Yes CN's II-XII intact bilaterally Extrem General: Yes normal to inspection and Yes full ROM Psych Appearance: grossly normal, well kempt and not disheveled Course Course Course Narrative: Patient swabbed for covid, linfluenza, and strep Reevaluation(s) Reevaluation #1: Strep, covid, and influenza negative. Dischage with antibiotcs. for ear infection Time: 12:23 Medical Decision Making [facility] Narrative Medical decision making narrative: otits media Lab Data Labs: Lab Results 04/17/22 04/17/22 04/17/22 Range/Units 23:30 23:30 23:30 COVID-19 (PABLO) Negative (Negative) COVID-19 Clin Com See Note Influenza Type A (CAROL) Negative (Negative) Influenza Type B (CAROL) Negative (Negative) Influenza A & B Note See Note S. pyogenes GrpA CAROL Negative (Negative) Discharge Plan Discharge Clinical Impression: Otitis media Patient Disposition: Home, Self-Care Instructions: Ear Infection (ED) Additional Instructions: Covid, Influenza, and strep test negative. You will be discharged with antibiotics for ear infection. Return to the ED immediatley for any chest pain, swelling/redness in front or behind ear, worsening ear pain, ear discharge, drooling, shoftness of breath, or any other concerning symptoms. Please follow up with PCP. Prescriptions: New amoxicillin 500 mg capsule 500 mg PO Q12H 10 Days Qty: 20 0RF naproxen 500 mg tablet 500 mg PO BID PRN (Reason: pain) 10 Days Qty: 20 0RF Stand Alone Forms: Work/School Release Interventions: ED Discharge Assessment Last Done: 04/18/22 00:33 Discharge Date/Time: 04/18/22 00:50 Print Language: Australian
[2022-04-18] MEDS: Ibuprofen 800 MG TABLET PO (00:40)
== END 2022-04-18 00:50 | disposition home or self-care (01) ==
PROVIDERS: Physician Assistant; Emergency Provider Internal Medicine; PCP Internal Medicine
DX: H66.91 Otitis media, unspecified, right ear (principal); Z20.822 Contact with and (suspected) exposure to COVID-19; J02.9 Acute pharyngitis, unspecified
CPT/HCPCS: 87502; 87635; 87651; 99283

== ENCOUNTER 2022-05-29 13:10 | Emergency (ER) | payer MEDICAID, SELFPAY ==
[2022-05-29 13:32] VITALS: BP 92/54; PULSE 72; RESP 19; TEMP 36.6; O2SAT 97; BMI 22.3
--- NOTE | 2022-05-29 17:10 | ED.WOUNDLAC ---
HPI - Wound/Laceration General Chief Complaint: Wound/Laceration Stated Complaint: laceration on R leg Time Seen by Provider: 05/29/22 17:10 Source: patient Mode of arrival: ambulatory History of Present Illness HPI narrative: 36-year-old female presenting to the ED complaining of laceration to right lower leg s/p taking the trash out & piece of glass cutting her through the bag around 12 noon today. Denies suspected foreign body. Tetanus up-to-date. Denies injury to the area, numbness, tingling, weakness. Denies taking ELLE Onset (ago): hour(s) Related Data Previous Rx's Medication Instructions Recorded amoxicillin 500 mg capsule 500 mg PO Q12H 10 days #20 caps 04/18/22 naproxen 500 mg tablet 500 mg PO BID PRN pain 10 days #20 04/18/22 tabs Allergies Allergy/AdvReac Type Severity Reaction Status Date / Time No Known Allergies Allergy Verified 04/17/22 21:45 [No Known Allergies*] Review of Systems Review of Systems: Constitutional: No Fever, No Chills ENT/Mouth: No Ear Pain, No Nasal Congestion, No sore throat, No Rhinorrhea, No Swallowing Difficulty Cardiovascular: No Chest Pain, No SOB Respiratory: No Cough, No Sputum, No Wheezing Gastrointestinal: No Nausea, No Vomiting, No Diarrhea, No Constipation, No Abdominal pain Genitourinary: No Dysuria, No Urinary Frequency, No Urgency, No Flank Pain Musculoskeletal: No joint pain, No Myalgias, No Joint Swelling Skin: +laceration, No rash Neuro: No Weakness, No Numbness, No Paresthesias Yes all other systems are reviewed and are negative Constitutional: Constitutional: Reports as per [facility] Past Medical History Attestation statement: The following information was validated with the patient. Medical History History of melanoma Hx of breast lump Surgical History History of loop electrical excision procedure (LEEP) Hx of breast augmentation Hx of oral surgery Hx of tubal ligation Family History Family History Father Diabetes mellitus Mother Hypertension Maternal Grandmother History of breast cancer Maternal Aunt History of breast cancer Social History Social History (System 10/06/21 @ 11:10 by Anushka Santos) Alcohol intake: never Patient Tobacco Use Status: Never used Tobacco Advance Directives: No Advance Directives Information Provided: No Physical Exam Vital Signs: Vital Signs: Last Vital Signs Temp 98 F 05/29/22 13:32 Pulse 72 05/29/22 13:32 Resp 19 05/29/22 13:32 BP 92/54 L 05/29/22 13:32 Pulse Ox 97 05/29/22 13:32 O2 Del Method 05/29/22 13:32 BMI result Body Mass Index 22.3 Const: General: cooperative, healthy appearing and no acute distress Orientation/consciousness: patient oriented x3 Limitations: no limitations HEENT: Head: Yes normal to inspection and Yes atraumatic Ears: hearing grossly normal bilaterally General nose exam: Normal external nose present Face and sinus: Yes normal facial exam Eyes: General: appearance normal, both eyes and all related structures EOM: EOMs intact bilaterally Neck: Neck: Yes normal visual inspection and Yes no meningeal signs Resp: Effort & Inspection: normal respiratory effort and no respiratory distress Cardio: Rate: regular rate Heart sounds: S1 normal heart sound present and S2 normal heart sound present Peripheral pulses: dorsalis pedis present GI: Inspection: Yes normal to inspection : General: Yes no CVA tenderness Back/Spine/Pelvis: Back: no CVA tenderness Skin: Other: + 5 cm deep linear laceration noted to right lateral lower leg. Bleeding controlled. Neurovascular intact distally. Rashes: no rashes Neuro: General: patient oriented x3, tone normal and no meningeal signs Gait exam (Neuro): Normal gait present Extrem: General: Yes normal to inspection MDM - Wound/Laceration MDM Narrative Medical decision making narrative: 36-year-old female presenting to the ED complaining of laceration to right lower leg s/p taking the trash out & piece of glass cutting her through the bag around 12 noon today. On exam mildly hypotensive, NAD, nontoxic appearing, physical exam as above. Tetanus is up-to-date. Will repair laceration Differential Diagnosis Differential diagnosis: Likely laceration Medical Records Attestation: I reviewed the patient's medical records. Lab Data Attestation: I reviewed the patient's lab results. Procedures Laceration Laceration 1: Site: lower extremity Side (If applicable): right Size (cm): 5 Description: linear Depth: simple, single layer Local Anesthetic: lidocaine 1% Amount of anesthesia used (mL): 3.5 Pre-repair: wound explored, irrigated extensively and deep structures intact Skin layer closed with: nylon Size (cm): 4-0 Number of sutures: 8 Technique: simple, interrupted Discharge Plan Discharge Clinical Impression: Laceration Patient Disposition: Home, Self-Care Instructions: Laceration (ED) Additional Instructions: Your wound was repaired today in the emergency department. Keep dry and clean. You need to return to any emergency department or urgent care in 7-10 days for suture removal Apply bacitracin and or Neosporin daily Once sutures are removed apply anti scar cream like Mederma If area begins look infected, is red, there is drainage, streaking, or you have fever please return to the emergency department [place] herida fue reparada hoy en el departamento de emergencias. Mant?ngase seco y limpio. Debe regresar a cualquier departamento de emergencia o atenci?n de urgencia en 7 a 10 d?as para que le quiten la sutura. Aplique bacitracina y/o Neosporin diariamente Miley vez que se retiran las suturas, aplique miley crema anticicatrices terry Mederma. Si el ?og comienza a lucir infectada, est? libby, hay drenaje, rolf o tiene fiebre, regrese al departamento de emergencias. Prescriptions: No Action amoxicillin 500 mg capsule 500 mg PO Q12H 10 Days Qty: 20 0RF naproxen 500 mg tablet 500 mg PO BID PRN (Reason: pain) 10 Days Qty: 20 0RF Referrals: Vic Maurer MD [Primary Care Provider] - 1 week (7-10 days for suture removal) ED PhysicianFelicita [Emergency Provider] - 1 week (7-10 days for suture removal) Print Language: Vietnamese
[2022-05-29] MEDS: Lidocaine HCl 1 % MPF 2 ML VIAL INFILTRATI ×2 (17:32)
[2022-05-29 18:05] VITALS: BP 101/59
== END 2022-05-29 18:15 | disposition home or self-care (01) ==
PROVIDERS: Emergency Provider Emergency Medicine; PCP Internal Medicine
DX: S81.811A Laceration without foreign body, right lower leg, initial encounter (principal); W25.XXXA Contact with sharp glass, initial encounter; Y93.E9 Activity, other interior property and clothing maintenance; Y92.038 Other place in apartment as the place of occurrence of the external cause; Y99.9 Unspecified external cause status
CPT/HCPCS: 12002; 99282; 99284

== ENCOUNTER 2022-06-20 12:48 | Emergency (ER) | payer MEDICAID, SELFPAY ==
--- NOTE | ~2022-06-20 | XR_ITS ---
EXAMINATION: XR CHEST CLINICAL INFORMATION: Right chest pain COMPARISON: Previous chest x-ray most recent October 2013 TECHNIQUE: Frontal view of the chest was obtained. FINDINGS: The cardiac and mediastinal contours are normal. The lungs are well inflated. The lungs are clear. There is no pleural effusion or pneumothorax. Bony structures are unremarkable. XR/XR chest 1V IMPRESSION: No evidence for acute disease in the chest.
[2022-06-20 12:54] VITALS: PULSE 75; RESP 18; TEMP 36.5; O2SAT 99; BMI 22.3
--- NOTE | 2022-06-20 17:34 | ED.GENADULT ---
HPI - General Adult General Chief complaint: General Medical Stated complaint: Chest pain/pain in the right side Time Seen by Provider: 06/20/22 17:32 Source: patient Limitations: no limitations History of Present Illness HPI narrative: For this is a 36-year-old female who complains of pain in her right posterior shoulder down her right arm which has been present for weeks. The patient states she was seen here previously for and has been trying ibuprofen but has not had relief. She denies any shortness of breath. She denies anterior chest pain. She does have mild nausea. She does have pain at the base of her neck on the right side and the pain is worse with movements such as trying to get up out of bed, she notes she has to support her head with trying to get up. She denies any numbness or tingling in her right arm or leg. Related Data Previous Rx's Medication Instructions Recorded amoxicillin 500 mg capsule 500 mg PO Q12H 10 days #20 caps 04/18/22 naproxen 500 mg tablet 500 mg PO BID PRN pain 10 days #20 04/18/22 tabs bacitracin 500 unit/gram topical 1 appl topical BID #30 grams 05/29/22 ointment diazepam 5 mg tablet (Valium) 5 mg PO TID PRN muscle spasm #15 06/20/22 tabs prednisone 20 mg tablet 40 mg PO DAILY #10 tabs 06/20/22 Allergies Allergy/AdvReac Type Severity Reaction Status Date / Time No Known Allergies Allergy Verified 06/20/22 12:54 [No Known Allergies*] Review of Systems Review of Systems: Yes all other systems are reviewed and are negative Constitutional: Constitutional: Reports as per HPI and Denies fever(s) Eyes: Eyes: Reports as per HPI and Reports no additional eye complaints ENT: Reports system reviewed and no additional complaints, except as documented, Reports as per HPI, Denies nasal congestion, Denies nasal discharge and Denies sore throat Cardiovascular: Cardiovascular: Reports as per HPI, Denies chest pain and Denies dyspnea Respiratory: Respiratory: Reports as per HPI, Denies cough and Denies dyspnea Gastrointestinal: Gastrointestinal: Reports as per HPI, Denies abdominal pain, Denies diarrhea, Reports nausea and Denies vomiting Genitourinary: Genitourinary: Reports as per HPI, Denies hematuria, Denies urinary frequency and Denies dysuria Musculoskeletal: Musculoskeletal: Reports no additional musculoskeletal complaints, Reports back pain and Denies numbness Comments: Pain right upper arm Integumentary/Breasts: Skin/Breast: Reports as per HPI and Denies rash Neurologic: Reports as per HPI, Denies focal weakness and Denies numbness Psychiatric: Psychiatric: Reports no additional psychiatric complaints and Reports as per HPI Endocrine: Endocrine: Reports no additional endocrine complaints and Reports as per HPI Hematologic/Lymphatic: Hematologic/Lymphatic: Reports no additional hematologic/lymphatic complaints, Reports as per HPI and Reports other (No peripheral edema) [facility] Past Medical History Medical History History of melanoma Hx of breast lump Surgical History History of loop electrical excision procedure (LEEP) Hx of breast augmentation Hx of oral surgery Hx of tubal ligation Family History Family History Father Diabetes mellitus Mother Hypertension Maternal Grandmother History of breast cancer Maternal Aunt History of breast cancer Social History Social History (System 10/06/21 @ 11:10 by Anushka Santos) Alcohol intake: never Patient Tobacco Use Status: Never used Tobacco Advance Directives: No Advance Directives Information Provided: No Physical Exam ED Vital Signs: Vital Signs - 24 hr 06/20/22 12:54 06/20/22 18:15 Temperature 97.7 F 98.0 F Pulse Rate 75 69 Respiratory Rate 18 16 Blood Pressure 110/59 L Pulse Oximetry 99 100 Oxygen Delivery Method Room Air Room Air BMI result Body Mass Index 22.3 Medical Decision Making [facility] Narrative Medical decision making narrative: Patient with pain or tenderness to her right upper back, right base of her neck. Patient has had this pain before. Pain is worse with movement. This is clearly musculoskeletal pain. May be due to cervical radiculopathy given the distribution of the pain. 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 Chest x-ray was negative. Patient had improvement with Valium and prednisone, states ibuprofen in the past has not helped her. Am prescribing prednisone and Valium. Patient may benefit from physical therapy, if her symptoms persist may need MRI the cervical spine Discharge Plan Discharge Clinical Impression: Cervical radiculopathy Patient Disposition: Home, Self-Care Instructions: Cervical Radiculopathy (ED) Additional Instructions: Use ice alternating with heat to the sore area of her right lower neck and right posterior shoulder. Use the prednisone as prescribed for inflammation, and take Valium as a muscle relaxant. Follow up with primary care physician. May benefit from physical therapy. If her pain persists she may need an MRI have your neck to evaluate for a bulging disc or nerve compression. Return for any new or worsened symptoms Prescriptions: New diazepam [Valium] 5 mg tablet 5 mg PO TID PRN (Reason: muscle spasm) Qty: 15 0RF prednisone 20 mg tablet 40 mg PO DAILY Qty: 10 0RF No Action amoxicillin 500 mg capsule 500 mg PO Q12H 10 Days Qty: 20 0RF naproxen 500 mg tablet 500 mg PO BID PRN (Reason: pain) 10 Days Qty: 20 0RF bacitracin 500 unit/gram ointment 1 appl topical BID Qty: 30 1RF Interventions: ED Discharge Assessment Last Done: 06/20/22 19:05 Discharge Date/Time: 06/20/22 19:05
[2022-06-20] MEDS: diazePAM 2 MG TABLET 6 MG PO (18:02)
[2022-06-20] MEDS: predniSONE 20 MG TABLET 60 MG PO (18:03)
[2022-06-20 18:15] VITALS: BP 110/59; PULSE 69; RESP 16; TEMP 36.7; O2SAT 100
== END 2022-06-20 19:05 | disposition home or self-care (01) ==
PROVIDERS: Emergency Provider Emergency Medicine; PCP Internal Medicine
DX: M54.12 Radiculopathy, cervical region (principal); R07.89 Other chest pain; Z79.899 Other long term (current) drug therapy
CPT/HCPCS: 71045; 99282; 99283

== ENCOUNTER 2022-10-29 19:26 | Emergency (ER) | payer MEDICAID, SELFPAY ==
--- NOTE | ~2022-10-29 | CT_ITS ---
EXAMINATION: CT HEAD WITHOUT CONTRAST CLINICAL INFORMATION: Right Arm numbness COMPARISON: 06/13/2019 TECHNIQUE: Contiguous axial imaging was performed from the skull base to vertex without intravenous administration of contrast. This CT examination was performed using dose optimization techniques as appropriate, variously including the following: *Automated exposure control *Adjustment of mA and/or kV according to patient size (this includes techniques or standardized protocols for targeted exams where dose is matched to indication/reason for exam; i.e. extremities or head) *Use of iterative reconstruction technique DLP: 616 mGy-cm FINDINGS: No midline shift. There is no mass effect. There is no hemorrhage. The basal cisterns appear patent. The posterior fossa is grossly within normal limits. No extra-axial collection. The chadwick-white matter is fairly well-maintained. Ventricular system within normal limits. Review of the bone windows demonstrates some mild sinus disease. CT/CT head/brain wo IV con IMPRESSION: Negative acute noncontrast CT of the brain. If further evaluation is warranted given the clinical history recommend MRI with diffusion-weighted imaging
--- NOTE | ~2022-10-29 | XR_ITS ---
EXAMINATION: XR CHEST CLINICAL INFORMATION: Right arm numbness COMPARISON: 06/20/2022 TECHNIQUE: Frontal view of the chest was obtained. FINDINGS: Lungs are clear. No focal consolidation or mass. Normal pulmonary vascularity. No pleural effusion or pneumothorax. Normal heart size. No acute osseous abnormality. XR/XR chest 1V IMPRESSION: No acute pulmonary disease.
[2022-10-29 19:28] VITALS: BP 113/73; PULSE 87; RESP 20; TEMP 36.6; O2SAT 98; BMI 21.9
--- NOTE | 2022-10-29 19:30 | ECG_ITS ---
Test Reason : PALPATATIONS Blood Pressure : / mmHG Vent. Rate : 077 BPM Atrial Rate : 077 BPM P-R Int : 122 ms QRS Dur : 092 ms QT Int : 366 ms P-R-T Axes : 050 053 047 degrees QTc Int : 414 ms Normal sinus rhythm Normal ECG When compared with ECG of 26-SEP-2012 21:16, No significant change was found Referred By: Loy Carrion Electronically Signed By:CARLITOS CORTEZ MD
--- NOTE | 2022-10-29 19:35 | ED_ITS ---
HPI - Neuro Symptoms/Deficit General Chief Complaint: Neuro Symptoms/Deficit <PA Mendes - Last Filed: 10/30/22 11:21> Stated Complaint: Numbness of body for 2 days <PA Mendes - Last Filed: 10/30/22 11:21> Time Seen by Provider: 10/29/22 20:36 <PA Mendes - Last Filed: 10/30/22 11:21> Source: patient <PA Yang - Last Filed: 10/29/22 22:51> Mode of arrival: ambulatory <PA Yang Last Filed: 10/29/22 22:51> Limitations: no limitations <PA Yang Last Filed: 10/29/22 22:51> History of Present Illness HPI Narrative: This is a 37-year-old female History of anxiety presenting to the emergency department complaints of palpitations, right arm numbness, numbness around mouth x2 days. Patient tells me her right arm intermittently goes numb, she tells me this is new and has never happened to her before denies any trauma to the area tells me sometimes its just from the elbow down to the hand w/ a/c tingling. Patient tells me she has also been getting palpitations intermittently over the past 2 days again she tells me this is not normal for her. She denies associated fevers, chills, chest pain, shortness of breath, nausea, vomiting, headache, vision changes, dizziness, weakness, changes in am bulation, changes in voice, trauma. No significant cardiac history. Patient tells me she feels anxious every once in a while however she is not sure if this is anxiety.No personal or family hx of MS <PA Yang Last Filed: 10/29/22 22:51> Related Data Home Medications: Previous Rx's Medication Instructions Recorded amoxicillin 500 mg capsule 500 mg PO Q12H 10 days #20 caps 04/18/22 naproxen 500 mg tablet 500 mg PO BID PRN pain 10 days #20 04/18/22 tabs bacitracin 500 unit/gram topical 1 appl topical BID #30 grams 05/29/22 ointment diazepam 5 mg tablet (Valium) 5 mg PO TID PRN muscle spasm #15 06/20/22 tabs prednisone 20 mg tablet 40 mg PO DAILY #10 tabs 06/20/22 lorazepam 0.5 mg tablet 0.5 mg PO DAILY PRN anxiety #8 tabs 10/29/22 <PA Mendes - Last Filed: 10/30/22 11:21> Allergies/Adverse Reactions: Allergies Allergy/AdvReac Type Severity Reaction Status Date / Time No Known Allergies Allergy Verified 10/29/22 19:32 [No Known Allergies*] <PA Mendes - Last Filed: 10/30/22 11:21> Review of Systems Review of Systems: Constitutional : No Weight loss, No Fever, No Chills, No Fatigue, No Malaise ENT/Mouth : No sore throat, No Rhinorrhea Eyes: No Eye Pain, No Swelling, No Redness Cardiovascular : No Chest Pain, No SOB, No Dyspnea on Exertion, No Orthopnea, No Edema, + Palpitations Respiratory : No Cough, No Sputum, No Wheezing Gastrointestinal : No Nausea, No Vomiting, No Diarrhea, No Constipation, No abdominal Pain, No Hematochezia, No Melena Genitourinary : No Dysuria, No Urinary Frequency, No Hematuria, Musculoskeletal : No joint pain, No Myalgias, No Joint Swelling Skin : No Skin Lesions, No rash Neuro : No Weakness, + Numbness, No Dizziness, No Headache Psych : No Anxiety/Panic, No Depression All other systems reviewed and are negative <PA Yang - Last Filed: 10/29/22 22:51> Yes all other systems are reviewed and are negative <PA Yang - Last Filed: 10/29/22 22:51> [facility] Past Medical History Attestation statement: The following information was validated with the patient. <PA Yang - Last Filed: 10/29/22 22:51> Source: old records reviewed <PA Yang - Last Filed: 10/29/22 22:51> Medical History: Medical History History of melanoma Hx of breast lump <PA Mendes - Last Filed: 10/30/22 11:21> Surgical History: Surgical History History of loop electrical excision procedure (LEEP) Hx of breast augmentation Hx of oral surgery Hx of tubal ligation <PA Mendes - Last Filed: 10/30/22 11:21> Family History Family History: Family History Father Diabetes mellitus Mother Hypertension Maternal Grandmother History of breast cancer Maternal Aunt History of breast cancer <PA Mendes - Last Filed: 10/30/22 11:21> Social History Social History: Social History Alcohol intake: never Patient Tobacco Use Status: Never used Tobacco Smoked in Last 30 Days: No Use of substances other than those prescribed or required for medical reasons: No Advance Directives: No Advance Directives Information Provided: Yes Patient : No <PA Mendes - Last Filed: 10/30/22 11:21> Physical Exam Vital Signs: Vital Signs: Last Vital Signs Temp 97.9 F 10/29/22 22:22 Pulse 73 10/29/22 22:22 Resp 18 10/29/22 22:22 BP 108/69 10/29/22 22:22 Pulse Ox 100 10/29/22 22:22 O2 Del Method 10/29/22 22:22 BMI result Body Mass Index 21.9 <PA Mendes - Last Filed: 10/30/22 11:21> Vital Signs: Last Vital Signs Temp 97.9 F 10/29/22 22:22 Pulse 73 10/29/22 22:22 Resp 18 10/29/22 22:22 BP 108/69 10/29/22 22:22 Pulse Ox 100 10/29/22 22:22 O2 Del Method 10/29/22 22:22 BMI result Body Mass Index 21.9 vss <PA Yang - Last Filed: 10/29/22 22:51> Appearance: Alert.? Oriented X3.? No acute distress.? Head: Normocephalic, atraumatic, no step-offs or deformities Eyes: Pupils equal, round and reactive to light.? ENT: Pharynx normal.? Neck: Normal inspection.? Neck supple.? CVS: Normal heart rate and rhythm.? Pulses normal.? Respiratory: No respiratory distress.? Breath sounds normal.? Abdomen: Soft and nontender.? Skin: Skin warm and dry.? Normal skin color.? Normal skin turgor.? Extremities: No lower extremity edema.? No calf ttp. 5/5 strength to bilateral upper and lower extremities Neuro: Oriented X 3.? No motor deficit.? No sensory deficit. CN 2-12 intact . Normal [id number]-ru-iuml, vghs-ap-upen, steady tandem gait with normal coordination. GCS 15 NIH stroke scale 0. <PA Yang - Last Filed: 10/29/22 22:51> Course Course Course Narrative: RME: patient presents to the ED heart racing ( palpitations) and right arm numbness for 2 days. Patient's neuro exam intact. EKG and labs ordered. Vital signs stable <PA Mendes - Last Filed: 10/30/22 11:21> Reevaluation(s) Reevaluation #1: CBC appears to be around patient's baseline. Chemistry with no acute electrolyte abnormalities requiring interventions. Patient's troponin negative, EKG nonischemic unlikely ACS. TSH within normal limits. Patient's D-dimer negative, unlikely PE. Chest x-ray unremarkable. <PA Yang - Last Filed: 10/29/22 22:51> Time: 21:51 <PA Yang - Last Filed: 10/29/22 22:51> Reevaluation #2: CT of the head unremarkable. I had my attending evaluate the patient obtain a full history, to a physical exam, he suspects this is likely anxiety, patient states she has been thinking a over the past few days and it gets worse when she feels anxious. He thinks this is acute panic/anxiety. Patient tearful during his exam. He recommends discharge home with limited dose of 0.5 mg of lorazepam. Will have her follow-up with Neurology and Cardiology. As well as her PCP Educated patient on diagnosis and treatment plan, answered all question, patient verbalizes understanding. At this time patient will be discharged home, advised to return with new or worsening symptoms. Educated on worrisome signs and symptoms and when to return. At this time I feel comfortable discharge home. At time of discharge patients neuro nonfocal ambulating w/ steady gait . Patient has normal sensation to bilateral upper extremities, reports that her right arm numbness has improved however still there. Reports complete resolution of oral numbness. <PA Yang - Last Filed: 10/29/22 22:51> Time: 22:46 <PA Yang - Last Filed: 10/29/22 22:51> Medications Administered Discontinued Medications Generic Name Dose Route Start Last Admin Trade Name Freq PRN Reason Stop Dose Admin Hydroxyzine HCl 25 mg 10/29/22 21:51 10/29/22 22:18 Hydroxyzine Hcl 25 Mg Tablet PO 10/29/22 21:52 25 mg ONCE ONE Administration <PA Mendes - Last Filed: 10/30/22 11:21> Medications Administered Discontinued Medications Generic Name Dose Route Start Last Admin Trade Name Freq PRN Reason Stop Dose Admin Hydroxyzine HCl 25 mg 10/29/22 21:51 10/29/22 22:18 Hydroxyzine Hcl 25 Mg Tablet PO 10/29/22 21:52 25 mg ONCE ONE Administration <PA Yang - Last Filed: 10/29/22 22:51> Medical Decision Making Medical Decision Making MDM Narrative: 2030 37-year-old female presents with right arm numbness and palpitations x2 days intermittent in nature. Physical examination benign Likely anxiety. Will rule out ACS, PE, electrolyte abnormalities, dysrhythmias. History and physical examination not consistent with stroke or posterior stroke. . No focal neuro deficits CTA not indicated. Plan labs, imaging <PA Yang - Last Filed: 10/29/22 22:51> Differential Diagnosis Differential Diagnoses: The differential diagnosis associated with the presentation includes <PA Yang Last Filed: 10/29/22 22:51> Likely anxiety. Will rule out ACS, PE, electrolyte abnormalities, dysrhythmias. History and physical examination not consistent with stroke or posterior stroke. <PA Yang - Last Filed: 10/29/22 22:51> Admission/Observation Consideration of admission/observation: Escalation of care including admission/observation considered <PA Yang - Last Filed: 10/29/22 22:51> Lab Data MDM Lab Attestation statement: I reviewed the patient's lab results. <PA Yang - Last Filed: 10/29/22 22:51> Result Diagrams: 10/29/22 20:20 10/29/22 20:20 <PA Mendes - Last Filed: 10/30/22 11:21> Labs: Lab Results 10/29/22 10/29/22 10/29/22 Range/Units 20:20 20:20 20:20 WBC 4.5 L (4.8-10.8) X10*3/uL RBC 4.36 (4.20-5.50) X10*6/uL Hgb 12.3 (12.0-16.0) g/dl Hct 37.2 (37.0-47.0) % MCV 85.3 (80.0-98.0) fL MCH 28.2 (27.0-33.0) pg MCHC 33.1 (31.0-35.0) g/dl RDW 12.6 (11.0-16.0) % Plt Count 202 (160-400) X10*3/uL MPV 12.0 (9.4-12.3) fL Immature Gran % (Auto) 0.2 (0.0-0.4) % Neut % (Auto) 45.0 (45-73) % Lymph % (Auto) 40.0 (20-40) % [place] % (Auto) 11.3 H (2-11) % Eos % (Auto) 3.1 (0-4) % Baso % (Auto) 0.4 (0-2) % Lymph # (Auto) 1.8 (1.2-4.9) X10*3/uL [place] # (Auto) 0.5 (0.1-1.2) X10*3/uL Eos # (Auto) 0.1 (0.0-0.4) X10*3/uL Baso # (Auto) 0.0 (0.0-0.2) X10*3/uL Abs Immat Gran (auto) 0.01 (0.00-0.03) X10*3/uL Absolute Neuts (auto) 2.0 (2.0-8.3) x10*3/uL Absolute Nucleated RBC 0.000 (0.0-0.012) X10*3/uL Nucleated RBC % (auto) 0.0 (0.0-0.2) /100WBC PT 11.3 (10.0-13.1) SEC INR 1.0 (0.9-1.1) APTT 29.3 (26.0-36.4) SEC D-Dimer High Sensitivty 166 NG/ML Sodium 140 (135-145) mmol/L Potassium 3.6 (3.3-5.1) mmol/L Chloride 108 (96-108) mmol/L Carbon Dioxide 24 (22-29) mmol/L Anion Gap 12 (12-20) BUN 9 (9-16) mg/dL Creatinine 0.64 (0.5-1.4) mg/dL Estim Creat Clear Calc 102.9 Estimated GFR > 60 Random Glucose 102 (60-115) mg/dL Calcium 9.0 (8.4-10.2) mg/dL Magnesium 1.8 (1.6-2.6) mg/dL Total Bilirubin 0.3 (0.0-1.0) mg/dL AST 41 H (5-31) U/L ALT 49 H (0-31) U/L Alkaline Phosphatase 90 (39-117) U/L Troponin I High Sens (<3.5-17.0) ng/L Total Protein 6.4 L (6.5-8.0) g/dL Albumin 3.8 (3.5-5.0) g/dL TSH 1.70 (0.32-4.0) uIU/mL 10/29/22 Range/Units 20:20 WBC (4.8-10.8) X10*3/uL RBC (4.20-5.50) X10*6/uL Hgb (12.0-16.0) g/dl Hct (37.0-47.0) % MCV (80.0-98.0) fL MCH (27.0-33.0) pg MCHC (31.0-35.0) g/dl RDW (11.0-16.0) % Plt Count (160-400) X10*3/uL MPV (9.4-12.3) fL Immature Gran % (Auto) (0.0-0.4) % Neut % (Auto) (45-73) % Lymph % (Auto) (20-40) % [place] % (Auto) (2-11) % Eos % (Auto) (0-4) % Baso % (Auto) (0-2) % Lymph # (Auto) (1.2-4.9) X10*3/uL [place] # (Auto) (0.1-1.2) X10*3/uL Eos # (Auto) (0.0-0.4) X10*3/uL Baso # (Auto) (0.0-0.2) X10*3/uL Abs Immat Gran (auto) (0.00-0.03) X10*3/uL Absolute Neuts (auto) (2.0-8.3) x10*3/uL Absolute Nucleated RBC (0.0-0.012) X10*3/uL Nucleated RBC % (auto) (0.0-0.2) /100WBC PT (10.0-13.1) SEC INR (0.9-1.1) APTT (26.0-36.4) SEC D-Dimer High Sensitivty NG/ML Sodium (135-145) mmol/L Potassium (3.3-5.1) mmol/L Chloride (96-108) mmol/L Carbon Dioxide (22-29) mmol/L Anion Gap (12-20) BUN (9-16) mg/dL Creatinine (0.5-1.4) mg/dL Estim Creat Clear Calc Estimated GFR Random Glucose (60-115) mg/dL Calcium (8.4-10.2) mg/dL Magnesium (1.6-2.6) mg/dL Total Bilirubin (0.0-1.0) mg/dL AST (5-31) U/L ALT (0-31) U/L Alkaline Phosphatase (39-117) U/L Troponin I High Sens < 3.5 (<3.5-17.0) ng/L Total Protein (6.5-8.0) g/dL Albumin (3.5-5.0) g/dL TSH (0.32-4.0) uIU/mL <PA Mendes - Last Filed: 10/30/22 11:21> Lab Results 10/29/22 10/29/22 10/29/22 Range/Units 20:20 20:20 20:20 WBC 4.5 L (4.8-10.8) X10*3/uL RBC 4.36 (4.20-5.50) X10*6/uL Hgb 12.3 (12.0-16.0) g/dl Hct 37.2 (37.0-47.0) % MCV 85.3 (80.0-98.0) fL MCH 28.2 (27.0-33.0) pg MCHC 33.1 (31.0-35.0) g/dl RDW 12.6 (11.0-16.0) % Plt Count 202 (160-400) X10*3/uL MPV 12.0 (9.4-12.3) fL Immature Gran % (Auto) 0.2 (0.0-0.4) % Neut % (Auto) 45.0 (45-73) % Lymph % (Auto) 40.0 (20-40) % [place] % (Auto) 11.3 H (2-11) % Eos % (Auto) 3.1 (0-4) % Baso % (Auto) 0.4 (0-2) % Lymph # (Auto) 1.8 (1.2-4.9) X10*3/uL [place] # (Auto) 0.5 (0.1-1.2) X10*3/uL Eos # (Auto) 0.1 (0.0-0.4) X10*3/uL Baso # (Auto) 0.0 (0.0-0.2) X10*3/uL Abs Immat Gran (auto) 0.01 (0.00-0.03) X10*3/uL Absolute Neuts (auto) 2.0 (2.0-8.3) x10*3/uL Absolute Nucleated RBC 0.000 (0.0-0.012) X10*3/uL Nucleated RBC % (auto) 0.0 (0.0-0.2) /100WBC PT 11.3 (10.0-13.1) SEC INR 1.0 (0.9-1.1) APTT 29.3 (26.0-36.4) SEC D-Dimer High Sensitivty 166 NG/ML Sodium 140 (135-145) mmol/L Potassium 3.6 (3.3-5.1) mmol/L Chloride 108 (96-108) mmol/L Carbon Dioxide 24 (22-29) mmol/L Anion Gap 12 (12-20) BUN 9 (9-16) mg/dL Creatinine 0.64 (0.5-1.4) mg/dL Estim Creat Clear Calc 102.9 Estimated GFR > 60 Random Glucose 102 (60-115) mg/dL Calcium 9.0 (8.4-10.2) mg/dL Magnesium 1.8 (1.6-2.6) mg/dL Total Bilirubin 0.3 (0.0-1.0) mg/dL AST 41 H (5-31) U/L ALT 49 H (0-31) U/L Alkaline Phosphatase 90 (39-117) U/L Troponin I High Sens (<3.5-17.0) ng/L Total Protein 6.4 L (6.5-8.0) g/dL Albumin 3.8 (3.5-5.0) g/dL TSH 1.70 (0.32-4.0) uIU/mL 10/29/22 Range/Units 20:20 WBC (4.8-10.8) X10*3/uL RBC (4.20-5.50) X10*6/uL Hgb (12.0-16.0) g/dl Hct (37.0-47.0) % MCV (80.0-98.0) fL MCH (27.0-33.0) pg MCHC (31.0-35.0) g/dl RDW (11.0-16.0) % Plt Count (160-400) X10*3/uL MPV (9.4-12.3) fL Immature Gran % (Auto) (0.0-0.4) % Neut % (Auto) (45-73) % Lymph % (Auto) (20-40) % [place] % (Auto) (2-11) % Eos % (Auto) (0-4) % Baso % (Auto) (0-2) % Lymph # (Auto) (1.2-4.9) X10*3/uL [place] # (Auto) (0.1-1.2) X10*3/uL Eos # (Auto) (0.0-0.4) X10*3/uL Baso # (Auto) (0.0-0.2) X10*3/uL Abs Immat Gran (auto) (0.00-0.03) X10*3/uL Absolute Neuts (auto) (2.0-8.3) x10*3/uL Absolute Nucleated RBC (0.0-0.012) X10*3/uL Nucleated RBC % (auto) (0.0-0.2) /100WBC PT (10.0-13.1) SEC INR (0.9-1.1) APTT (26.0-36.4) SEC D-Dimer High Sensitivty NG/ML Sodium (135-145) mmol/L Potassium (3.3-5.1) mmol/L Chloride (96-108) mmol/L Carbon Dioxide (22-29) mmol/L Anion Gap (12-20) BUN (9-16) mg/dL Creatinine (0.5-1.4) mg/dL Estim Creat Clear Calc Estimated GFR Random Glucose (60-115) mg/dL Calcium (8.4-10.2) mg/dL Magnesium (1.6-2.6) mg/dL Total Bilirubin (0.0-1.0) mg/dL AST (5-31) U/L ALT (0-31) U/L Alkaline Phosphatase (39-117) U/L Troponin I High Sens < 3.5 (<3.5-17.0) ng/L Total Protein (6.5-8.0) g/dL Albumin (3.5-5.0) g/dL TSH (0.32-4.0) uIU/mL <PA Yang - Last Filed: 10/29/22 22:51> Radiology Impression Discussion of test interpretation with radiology: I have reviewed the radiologist's reading. <PA Yang - Last Filed: 10/29/22 22:51> Tests considered The following testing was considered but not selected: No No focal neuro deficits CTA not indicated <PA Yang Last Filed: 10/29/22 22:51> Core Measures AMI core measures followed: Yes <PA Yang - Last Filed: 10/29/22 22:51> Measure exclusions: not indicated <PA Yang Last Filed: 10/29/22 22:51> Critical Care Time Critical Care Time Critical Care Time: No <PA Yang Last Filed: 10/29/22 22:51> Discharge Plan Discharge Clinical Impression: Heart palpitations, Arm numbness, Anxiety <PA Mendes Last Filed: 10/30/22 11:21> Patient Disposition: Home, Self-Care <PA Mendes Last Filed: 10/30/22 11:21> Instructions: Heart Palpitations (ED), Paresthesia (ED) <PA Mendes Last Filed: 10/30/22 11:21> Additional Instructions: Take your medications as prescribed. If you were prescribed antibiotics today, it is important that you take your medication to their entirety, do not skip any doses, do not finish them early. Follow-up with your primary care provider this week. Follow-up with cardiology and Neurology within a week information below. Return to the emergency department with new or worsening symptoms. Such as fevers, chills, chest pain, shortness of breath, nausea, vomiting, dizziness, headache, vision changes, lethargy In case of emergency call 911 <PA Mendes Last Filed: 10/30/22 11:21> Prescriptions: New lorazepam 0.5 mg tablet 0.5 mg PO DAILY PRN (Reason: anxiety) Qty: 8 0RF No Action amoxicillin 500 mg capsule 500 mg PO Q12H 10 Days Qty: 20 0RF naproxen 500 mg tablet 500 mg PO BID PRN (Reason: pain) 10 Days Qty: 20 0RF bacitracin 500 unit/gram ointment 1 appl topical BID Qty: 30 1RF diazepam [Valium] 5 mg tablet 5 mg PO TID PRN (Reason: muscle spasm) Qty: 15 0RF prednisone 20 mg tablet 40 mg PO DAILY Qty: 10 0RF <PA Mendes - Last Filed: 10/30/22 11:21> Referrals: [facility] Cardiovascular Services [Provider Group] - 1 week [facility] Neuro/Sleep [Provider Group] - 1 week <PA Mendes - Last Filed: 10/30/22 11:21> Stand Alone Forms: Work/School Release <PA Mendes - Last Filed: 10/30/22 11:21> Interventions: ED Discharge Assessment Last Done: 10/29/22 22:59 <PA Mendes - Last Filed: 10/30/22 11:21> Discharge Date/Time: 10/29/22 23:02 <PA Mendes - Last Filed: 10/30/22 11:21>
[2022-10-29 20:25] LABS: MANUAL DIFF FLAG NO
[2022-10-29 20:26] LABS: Basophils Percent Auto 0.4 % (0-2); Eosinophils Absolute Auto 0.1 X10*3/uL (0.0-0.4); Eosinophils Percent Auto 3.1 % (0-4); Hematocrit 37.2 % (37.0-47.0); Hemoglobin 12.3 g/dl (12.0-16.0); Imm Gran Abs Auto 0.01 X10*3/uL (0.00-0.03); Imm Gran Pct Auto 0.2 % (0.0-0.4); Lymphocytes Absolute Auto 1.8 X10*3/uL (1.2-4.9); Mean Corpuscular HGB Conc 33.1 g/dl (31.0-35.0); Mean Corpuscular Hemoglobin 28.2 pg (27.0-33.0); Mean Corpuscular Volume 85.3 fL (80.0-98.0); Monocytes Absolute Auto 0.5 X10*3/uL (0.1-1.2); Monocytes Percent Auto 11.3 % (2-11); Platelet Count 202 X10*3/uL (160-400); Red Blood Count 4.36 X10*6/uL (4.20-5.50); Red Cell Distribution Width 12.6 % (11.0-16.0); White Blood Count 4.5 X10*3/uL (4.8-10.8)
[2022-10-29 20:37] LABS: Prothrombin Time 11.3 SEC (10.0-13.1)
[2022-10-29 20:40] LABS: Partial Thromboplastin Time 29.3 SEC (26.0-36.4)
[2022-10-29 20:47] LABS: D Dimer High Sensitivity 166 NG/ML
[2022-10-29 20:50] LABS: Alanine Aminotransferase 49 U/L (0-31); Albumin Level 3.8 g/dL (3.5-5.0); Alkaline Phosphatase 90 U/L (39-117); Anion Gap 12 (12-20); Aspartate Amino Transferase 41 U/L (5-31); Bilirubin Total 0.3 mg/dL (0.0-1.0); Blood Urea Nitrogen 9 mg/dL (9-16); Carbon Dioxide 24 mmol/L (22-29); Chloride 108 mmol/L (96-108); Creatinine Clr Calc Pharmacy 102.9; Estimated Glomerular Filt Rate > 60; Glucose Random 102 mg/dL (60-115); Magnesium 1.8 mg/dL (1.6-2.6); Potassium 3.6 mmol/L (3.3-5.1); Sodium 140 mmol/L (135-145); Total Protein 6.4 g/dL (6.5-8.0)
[2022-10-29 21:02] LABS: Troponin-I High Sensitivity < 3.5 ng/L (<3.5-17.0)
[2022-10-29] MEDS: hydrOXYzine HCL 25 MG TABLET PO (22:18)
[2022-10-29 22:22] VITALS: BP 108/69; PULSE 73; RESP 18; TEMP 36.6; O2SAT 100
--- NOTE | 2022-10-30 05:16 | PC.NURSE ---
2145: Pt. lying in bed, under no apparent distress. IV inserted and labs drawn.
== END 2022-10-29 23:02 | disposition home or self-care (01) ==
PROVIDERS: Physician Assistant; Emergency Provider Internal Medicine; PCP Internal Medicine
DX: R00.2 Palpitations (principal); F41.9 Anxiety disorder, unspecified; F43.0 Acute stress reaction; R20.0 Anesthesia of skin; Z79.899 Other long term (current) drug therapy
CPT/HCPCS: 36415; 70450; 71045; 80053; 83735; 84443; 84484; 85025; 85379; 85610; 85730; 93005; 99284; 99285

== ENCOUNTER → 2022-11-06 12:59 | Outpatient (BNVA) | payer MEDICAID, SELFPAY | PROVIDERS: PCP Internal Medicine; Visit Provider Nurse Practitioner Family | DX: R07.9 Chest pain, unspecified (principal); R00.2 Palpitations; R20.0 Anesthesia of skin; F41.9 Anxiety disorder, unspecified | CPT/HCPCS: 99202 ==

== ENCOUNTER → 2022-11-13 10:01 | Outpatient (REF) | payer MEDICAID, SELFPAY ==
--- NOTE | 2022-11-13 10:15 | HM_ITS ---
Conclusion: 1. Patient was monitored for total period of 2 days 2. Baseline was normal sinus rhythm with average heart of 72 beats per minute 3. No significant pauses or bradycardia noted 4. No significant arrhythmias noted 5. No patient reported events MTDD
--- NOTE | 2022-11-13 10:15 | CA_ITS ---
Acquisition Time: 2022-11-13 10:29:11 Total Exercise Time: 00:07:19 Test Indications: chest pain Medications: Protocol: JUDY Max HR: 176 BPM 96% of Pred: 182 BPM Max BP: 124/062 mmHG Max Work Load: 9.0 METS Exercise stress test with exercise 7 min 19 sec of Judy protocol, achieving 95% MPHR, 9 METs, without anginal symptoms, without arrrythmia during exercise with sinus arrythmia in recovery, with normotensive response, without EKG changes meeting criteria for ischemia. Test reviewed with Dr Goddard Referred By: Anu Longoria Overread By: ANU LONGORIA
== END ==
LOC: HO.CARD 10:01
PROVIDERS: PCP Internal Medicine; Visit Provider Nurse Practitioner Family
DX: R07.9 Chest pain, unspecified (principal); R00.2 Palpitations
CPT/HCPCS: 93017; 93242

== ENCOUNTER 2022-11-22 11:41 | Outpatient (REF) | payer MEDICAID, SELFPAY ==
--- NOTE | 2022-11-22 09:30 | EMG_ITS ---
Please see scanned EMG / Nerve Conduction Report. MTDD
== END 2022-11-22 11:42 | disposition home or self-care (01) ==
LOC: HO.NEURO 11:41
PROVIDERS: PCP Internal Medicine; Visit Provider Internal Medicine
DX: M79.641 Pain in right hand (principal); M79.642 Pain in left hand; R20.0 Anesthesia of skin
CPT/HCPCS: 95885; 95913

== ENCOUNTER 2022-11-28 10:51 | Outpatient (REF) | payer MEDICAID, SELFPAY ==
[2022-11-29 04:24] LABS: Syphilis Screen Nonreactive (Nonreactive)
[2022-11-29 05:01] LABS: HBsAGNum1 0.23 S/CO (0.00-0.99); HIV AB/AG Nonreactive (Nonreactive); Hepatitis B Surface Antigen Negative (Negative); ~HepC Num1 0.13 S/CO (0.00-0.79); ~Hepatitis C Antibody Nonreactive (Nonreactive)
[2022-11-29 06:16] LABS: CT PCR NOT DETECTED (Not Detect.); NG PCR NOT DETECTED (Not Detect.)
[2022-11-29 09:08] LABS: BV Int Neg Control Negative (Negative); BV Int Pos Control Positive (Positive)
[2022-12-02 03:48] LABS: HPV mRNA E6/E7 rflx Not Detected (Not Detected)
== END 2022-11-28 10:52 | disposition home or self-care (01) ==
LOC: HO.LAB 10:51
PROVIDERS: PCP Internal Medicine; Visit Provider Obstetrics & Gynecology
DX: Z01.419 Encounter for gynecological examination (general) (routine) without abnormal findings (principal); Z11.51 Encounter for screening for human papillomavirus (HPV); Z11.3 Encounter for screening for infections with a predominantly sexual mode of transmission; Z11.4 Encounter for screening for human immunodeficiency virus [HIV]
CPT/HCPCS: 0353U; 36415; 86780; 86803; 87340; 87389; 87480; 87491; 87510; 87591; 87624; 87660; 88142

== ENCOUNTER → 2022-12-19 13:47 | Outpatient (BNVA) | payer MEDICAID, SELFPAY | PROVIDERS: PCP Internal Medicine; Referring Provider Internal Medicine; Visit Provider Nurse Practitioner Family | DX: R00.2 Palpitations (principal); R07.9 Chest pain, unspecified; R20.0 Anesthesia of skin; F41.9 Anxiety disorder, unspecified | CPT/HCPCS: 99212 ==

== ENCOUNTER 2023-07-27 11:05 | Outpatient (REF) | payer MEDICAID, SELFPAY ==
[2023-07-30 01:14] LABS: TS Negative Control Passed; TS Panel A 0; TS Panel B 0; TS Positive Control Passed; TSpotTB Negative (Negative)
== END 2023-07-27 11:06 | disposition home or self-care (01) ==
LOC: HO.HHCL 11:05
PROVIDERS: Visit Provider Internal Medicine
DX: Z11.1 Encounter for screening for respiratory tuberculosis (principal)
CPT/HCPCS: 36415; 86481

== ENCOUNTER 2024-01-29 08:50 | Outpatient (REF) | payer MEDICAID, SELFPAY ==
--- NOTE | ~2024-01-29 | MR_ITS ---
EXAMINATION: MR HUMERUS WITHOUT AND WITH CONTRAST, LEFT CLINICAL INFORMATION: Left arm palpable mass. Pain, numbness, lump/mass. Melanoma status post wide excision. COMPARISON: None available. TECHNIQUE: Multisequence MR imaging of the left humerus was obtained before and after the IV administration of 6 mL Gadavist contrast on a high-field strength scanner. FINDINGS: BONE: No abnormal marrow signal. No fracture or dislocation. No concerning lytic or blastic osseous lesion. No postcontrast marrow enhancement. MUSCLES/TENDONS: The visualized muscles and tendons are intact. No measurable tear. No edema or postcontrast enhancement to suggest acute myositis. SOFT TISSUES: Mild prominence of the subcutaneous fat in the region of the overlying skin markers without an encapsulated fat lesion. No soft tissue mass, fluid collection, or postcontrast enhancement within this region. Partially visualized left breast implant. The visualized vascular structures are grossly unremarkable. No significant axillary lymphadenopathy. MR/MR humerus LT wo/w con IMPRESSION: 1. Mild prominence of the subcutaneous fat in the region of the overlying skin markers without an encapsulated fat lesion. No soft tissue mass, fluid collection, or postcontrast enhancement within this region. 2. No acute osseous abnormality. No concerning lytic or blastic osseous lesion.
[2024-01-29] MEDS: gadobutroL 7.5 ML VIAL IVPUSH (09:56)
== END 2024-01-29 08:51 | disposition home or self-care (01) ==
LOC: HO.MRI 08:50
PROVIDERS: PCP Internal Medicine; Visit Provider Internal Medicine
DX: R22.32 Localized swelling, mass and lump, left upper limb (principal)
CPT/HCPCS: 73220; A9585

== ENCOUNTER 2024-02-07 10:00 | Outpatient (AMB) | payer MEDICAID, SELFPAY ==
--- NOTE | 2024-02-07 10:03 | A.OFFVIS_ITS ---
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 No complaints. The patient is interested in STD screen Last Pap/HPV was negative in 12/07 [facility] Medical History Hx of breast lump History of melanoma Surgical History Hx of breast augmentation Hx of oral surgery History of loop electrical excision procedure (LEEP) Hx of tubal ligation Family History Father Diabetes mellitus Mother Hypertension Maternal Grandmother History of breast cancer Maternal Aunt History of breast cancer Social History Household Members: Children Housing: Apartment Alcohol intake: current Alcohol intake frequency: holidays/special occasions only Patient Tobacco Use Status: Never used Tobacco service: No Current occupational status: employed 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 Sexual orientation: Straight/Heterosexual Gender identity: Female Female Reproductive History Menstrual Age of Menarche: 11 Date of last menstrual period: 02/01/24 control method: permanent sterilization Total pregnancies: 5 Full term: 3 Number of Living Children: 3 Ab spontaneous: 2 Date of last pap smear: 11/29/22 Review of Systems Const All systems reviewed & are unremarkable except as noted in HPI and below Card Reports as per HPI Resp Reports as per HPI GI Reports as per HPI and Reports no additional complaints Reports as per HPI Physical Exam Const General: cooperative, healthy appearing and comfortable Chest Chest palpation & inspection: normal inspection of the chest and normal palpation of entire chest wall Breast/axilla inspection: normal inspection of the breasts and normal inspection of the axillae Breast/axilla palpation: normal palpation of the breasts, normal palpation of the axillae and no axillary lymphadenopathy Resp Effort & Inspection: normal respiratory effort Auscultation: clear to auscultation bilaterally Percussion: percussion normal Cardio Palpation: normal PMI Rate: regular rate Rhythm: regular rhythm Heart sounds: no murmurs and no rubs Peripheral pulses: Peripheral pulses 2+ throughout GI Inspection: Yes normal to inspection Palpation (GI): Soft to palpation, nontender, no guarding, not rigid and No hepatosplenomegaly present Percussion: Yes normal to percussion Auscultation: normal bowel sounds Rectal Exam - Female: deferred General: Yes bladder normal to palpation External Female Exam: No lesion Speculum Exam - Vagina: normal appearance of the vagina, normal palpation, normal vaginal discharge and not erythematous Speculum Exam - Cervix: normal appearance of the cervix and normal palpation Bimanual exam- vagina & uterus: normal bimanual exam, normal palpation, uterine size normal, bladder normal to palpation, consistency normal and normal palpation Bimanual Exam- Adnexa, other: normal adnexae, no masses and no tenderness Assessment & Plan Assessment & Plan (1) Encounter for well woman exam: Code(s): Z01.419 - Encounter for gynecological examination (general) (routine) without abnormal findings Category: Medical Plan: Cotesting not indicated this year. Mammogram ordered in 08/07. Counseled the patient about the recommended dietary allowance of 1000 mg of Calcium & 600 IU of vitamin D. The patient was instructed to perform monthly self-breast exams and to schedule an annual exam in a year; All questions answered and the patient verbalized understanding. Instructed the patient to schedule annual exam in a year (2) Screening for STD (sexually transmitted disease): Code(s): Z11.3 - Encounter for screening for infections with a predominantly sexual mode of transmission Category: Medical Plan: STD screening tests done includes: BV panel for trichomonas, GC/CT will send patient for serology std screening for HIV, RPR, Hep b s Ag, HepC Ab. Instructions given the patient to schedule a follow-up appointment for repeat serology screen in 6 months for possible false negatives. Orders: Orders MM tomosynthesis screen imp BI Today Z12.31 - Encounter for screening mammogram for malignant neoplasm of breast Syphilis Screen Today Z20.2 - Contact with and (suspected) exposure to infections with a predominantly sexual mode of transmission Hepatitis B Surface Antigen Today Z20.2 - Contact with and (suspected) exposure to infections with a predominantly sexual mode of transmission HIV Ab/Ag Today Z20.2 - Contact with and (suspected) exposure to infections with a predominantly sexual mode of transmission Hepatitis C Antibody Today Z20.2 - Contact with and (suspected) exposure to infections with a predominantly sexual mode of transmission Coding Level of Care Code Est Pt Prev Care 18-39y(96457) Diagnoses Encounter for well woman exam Z01.419 Screening for STD (sexually transmitted disease) Z11.3
[2024-02-07 10:06] VITALS: BP 118/70; BMI 23.3
== END 2024-02-07 10:29 | disposition home or self-care (01) ==
PROVIDERS: PCP Internal Medicine; Referring Provider Internal Medicine; Visit Provider Obstetrics & Gynecology
DX: Z01.419 Encounter for gynecological examination (general) (routine) without abnormal findings (principal); Z11.3 Encounter for screening for infections with a predominantly sexual mode of transmission
CPT/HCPCS: 99395

== ENCOUNTER 2024-02-07 10:00 | Outpatient (REF) | payer MEDICAID, SELFPAY | END 2024-02-07 10:01 | disposition home or self-care (01) | LOC: HO.LNP 10:00 | PROVIDERS: PCP Internal Medicine; Visit Provider Obstetrics & Gynecology | DX: Z01.419 Encounter for gynecological examination (general) (routine) without abnormal findings (principal); Z20.2 Contact with and (suspected) exposure to infections with a predominantly sexual mode of transmission | CPT/HCPCS: 99395 ==

== ENCOUNTER 2024-02-07 10:33 | Outpatient (REF) | payer MEDICAID, SELFPAY ==
[2024-02-07 13:43] LABS: CT PCR NOT DETECTED (Not Detect.); NG PCR NOT DETECTED (Not Detect.)
[2024-02-08 08:20] LABS: HBsAGNum1 0.38 S/CO (0.00-0.99); HIV AB/AG Nonreactive (Nonreactive); HIV Num 1 0.08 S/CO (0.00-0.99); Hepatitis B Surface Antigen Negative (Negative); ~HepC Num1 0.14 S/CO (0.00-0.79); ~Hepatitis C Antibody Nonreactive (Nonreactive)
[2024-02-08 08:45] LABS: Syphilis Screen Nonreactive (Nonreactive)
[2024-02-08 12:49] LABS: BV Int Neg Control Negative (Negative); BV Int Pos Control Positive (Positive)
== END 2024-02-07 10:34 | disposition home or self-care (01) ==
LOC: HO.LAB 10:33
PROVIDERS: PCP Internal Medicine; Visit Provider Obstetrics & Gynecology
DX: Z01.419 Encounter for gynecological examination (general) (routine) without abnormal findings (principal); Z20.2 Contact with and (suspected) exposure to infections with a predominantly sexual mode of transmission
CPT/HCPCS: 0353U; 86780; 86803; 87340; 87389; 87480; 87510; 87660; 99395

== ENCOUNTER 2024-02-09 09:43 | Outpatient (REF) | payer MEDICAID, SELFPAY ==
[2024-02-09 09:58] LABS: MANUAL DIFF FLAG NO
[2024-02-09 10:14] LABS: Basophils Percent Auto 0.2 % (0-2); Eosinophils Absolute Auto 0.2 X10*3/uL (0.0-0.4); Eosinophils Percent Auto 3.2 % (0-4); Hematocrit 39.5 % (37.0-47.0); Hemoglobin 13.1 g/dl (12.0-16.0); Imm Gran Abs Auto 0.01 X10*3/uL (0.00-0.03); Imm Gran Pct Auto 0.2 % (0.0-0.4); Lymphocytes Absolute Auto 1.5 X10*3/uL (1.2-4.9); Lymphocytes Percent Auto 30.5 % (20-40); Mean Corpuscular HGB Conc 33.2 g/dl (31.0-35.0); Mean Corpuscular Hemoglobin 28.2 pg (27.0-33.0); Mean Corpuscular Volume 85.1 fL (80.0-98.0); Monocytes Absolute Auto 0.3 X10*3/uL (0.1-1.2); Monocytes Percent Auto 5.6 % (2-11); Neutrophils Percent Auto 60.3 % (45-73); Platelet Count 222 X10*3/uL (160-400); Red Blood Count 4.64 X10*6/uL (4.20-5.50); Red Cell Distribution Width 12.3 % (11.0-16.0)
[2024-02-09 10:44] LABS: Alanine Aminotransferase 21 U/L (0-31); Albumin Level 4.2 g/dL (3.5-5.0); Alkaline Phosphatase 96 U/L (39-117); Anion Gap 10 (12-20); Aspartate Amino Transferase 22 U/L (5-31); Bilirubin Total 0.6 mg/dL (0.0-1.0); Blood Urea Nitrogen 11 mg/dL (9-16); Calcium 9.3 mg/dL (8.4-10.2); Carbon Dioxide 27 mmol/L (22-29); Chloride 106 mmol/L (96-108); Cholesterol 199 mg/dL (<200); Estimated Glomerular Filt Rate > 60; Glucose Random 91 mg/dL (60-115); HDL Cholesterol 58 mg/dL (>40); LDL Cholesterol Calculated 118 mg/dL (<100); Potassium 4.1 mmol/L (3.3-5.1); Sodium 139 mmol/L (135-145); Total Protein 7.3 g/dL (6.5-8.0); Triglycerides 118 mg/dL (<150)
[2024-02-09 10:53] LABS: HBS Num1 14.24 mIU/mL (0-7.99); ~Hepatitis B Surface Antibody REACTIVE (Nonreactive)
[2024-02-09 11:01] LABS: TSH reflex Free T4 1.11 uIU/mL (0.32-4.0); Vitamin D 25-OH Total 16.4 ng/mL (>30)
[2024-02-09 11:26] LABS: Reflex LDLD? No
[2024-02-13 22:18] LABS: Rubella IgG Antibody 1.32 Index; Rubeola IgG (Measles) <13.50 AU/mL
== END 2024-02-09 09:44 | disposition home or self-care (01) ==
LOC: HO.LAB 09:43
PROVIDERS: PCP Internal Medicine; Visit Provider Internal Medicine
DX: Z00.00 Encounter for general adult medical examination without abnormal findings (principal); D17.22 Benign lipomatous neoplasm of skin and subcutaneous tissue of left arm
CPT/HCPCS: 36415; 80053; 80061; 82306; 84443; 85025; 86706; 86735; 86762; 86765

== ENCOUNTER 2024-03-12 11:40 | Outpatient (REF) | payer MEDICAID, SELFPAY ==
--- NOTE | ~2024-03-12 | MM_ITS ---
EXAMINATION: MM SCREENING DIGITAL BREAST TOMOSYNTHESIS, BILATERAL WITH BREAST IMPLANTS CLINICAL INFORMATION: Screening. Asymptomatic. COMPARISON: Mammography: This study is compared with the prior mammogram from 2020. TECHNIQUE: Digital mammography is performed in craniocaudal and mediolateral oblique views along with computer-aided detection (CAD). Digital breast tomosynthesis is performed in implant-displaced craniocaudal and implant-displaced mediolateral oblique views along with computer-aided detection (CAD). Synthesized 2D images are generated from the tomosynthesis. FINDINGS: The breasts are heterogeneously dense, which may obscure small masses (ACR BI-RADS breast composition Category c). There are bilateral, mammographically intact, retropectoral, saline and breast implants. There are no significant masses, abnormal calcifications, or other abnormalities. There are surgical clips in the left axilla from prior lymph node evaluation in the setting of a personal history of melanoma of the left upper extremity. MM/MM tomosynthesis screen imp BI IMPRESSION: No mammographic evidence of malignancy. ASSESSMENT: BI-RADS BI-RADS 2 - Benign Findings RECOMMENDATION: Routine annual mammography screening. 1 year F/U This patient's information was entered into a reminder system with a target due date for their next mammogram. BI-RADS 2
== END 2024-03-12 11:41 | disposition home or self-care (01) ==
LOC: HO.MAMMO 11:40
PROVIDERS: PCP Internal Medicine; Visit Provider Obstetrics & Gynecology
DX: Z12.31 Encounter for screening mammogram for malignant neoplasm of breast (principal)
CPT/HCPCS: 77063; 77067

== ENCOUNTER → 2024-03-12 11:45 | Outpatient (BNV) | payer MEDICAID, SELFPAY | PROVIDERS: PCP Internal Medicine; Visit Provider Radiology Diagnostic Radiology | DX: Z12.31 Encounter for screening mammogram for malignant neoplasm of breast (principal) | CPT/HCPCS: 77063; 77067 ==

== ENCOUNTER 2024-04-08 14:01 | Outpatient (REF) | payer MEDICAID, SELFPAY ==
[2024-04-08 17:58] LABS: Bacterial Vaginosis PCR NEGATIVE (Negative); Candida Group PCR NOT DETECTED (Not Detect); Candida glab krusei PCR NOT DETECTED (Not Detect); Trichomonas vaginalis PCR NOT DETECTED (Not Detect)
[2024-04-08 18:20] LABS: CT PCR NOT DETECTED (Not Detect.); NG PCR NOT DETECTED (Not Detect.)
== END 2024-04-08 14:02 | disposition home or self-care (01) ==
LOC: HO.LNP 14:01
PROVIDERS: PCP Internal Medicine; Visit Provider Obstetrics & Gynecology
DX: N76.0 Acute vaginitis (principal)
CPT/HCPCS: 0352U; 0353U; 99212

== ENCOUNTER 2024-04-08 14:01 | Outpatient (AMB) | payer MEDICAID, SELFPAY ==
--- NOTE | 2024-04-08 14:07 | A.OFFVIS_ITS ---
Vital Signs 04/08/24 14:11 Height 5 ft 4 in Weight 134 lb 7.712 oz BMI 23.1 Intake Visit Reasons: vaginal itch Director School [employer] Required: Yes Director [employer] Language: Pattern Checker Services: Director [employer] Present Director [employer] Name: Bridget RAE Information Interpreted: non-clinical & clinical College Physics Instructor: College Physics Instructor Present (Bridget RAE) Accompanied by: Self / Same As Patient Allergies No Known Allergies [No Known Allergies*] Allergy (Verified 04/08/24 14:12) HPI Comments Details: Presenting complaining of vulvovaginal itching with no discharge or odor PFSH Medical History Hx of breast lump History of melanoma Surgical History Hx of breast augmentation Hx of oral surgery History of loop electrical excision procedure (LEEP) Hx of tubal ligation Family History Father Diabetes mellitus Mother Hypertension Maternal Grandmother History of breast cancer Maternal Aunt History of breast cancer Social History Household Members: Children Housing: Apartment Alcohol intake: current Alcohol intake frequency: holidays/special occasions only Patient Tobacco Use Status: Never used Tobacco service: No Current occupational status: employed 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 Sexual orientation: Straight/Heterosexual Gender identity: Female Female Reproductive History Menstrual Age of Menarche: 11 Review of Systems Const All systems reviewed & are unremarkable except as noted in HPI and below Physical Exam Vital Signs: BMI result Body Mass Index 23.1 General: Yes no CVA tenderness External Female Exam: normal external appearance and normal appearance of the urethra Speculum Exam - Vagina: normal appearance of the vagina, normal palpation, no lesions and no masses Speculum Exam - Cervix: normal appearance of the cervix, normal palpation, no lesions, no masses and nontender Bimanual exam- vagina & uterus: normal bimanual exam, normal palpation, uterine size normal, normal palpation, uterine shape normal, No Cervical tenderness present and non-tender Bimanual Exam- Adnexa, other: normal adnexae Back/Spine/Pelvis Back: no CVA tenderness Assessment & Plan Assessment & Plan (1) Vulvovaginitis: Code(s): N76.0 - Acute vaginitis Category: Medical Plan: GC/CT with BV panel taken. Will treat with Diflucan 150 mg x 1 and Lotrisone cream b.i.d. for 5 days. Instructions given the patient to call in case of symptoms persist. All questions answered, the patient verbalized understanding Medications: New fluconazole 150 mg PO ONCE 1 day 1 tab 0RF clotrimazole-betamethasone 1-0.05 % 1 appl topical BID 5 days 45 grams 0RF Coding Level of Care Code Est Pt Level 3 (17606) Diagnoses Vulvovaginitis N76.0
[2024-04-08 14:11] VITALS: BMI 23.1
== END 2024-04-08 14:38 | disposition home or self-care (01) ==
LOC: HO.HWS 14:01
PROVIDERS: PCP Internal Medicine; Referring Provider Internal Medicine; Visit Provider Obstetrics & Gynecology
DX: N76.0 Acute vaginitis (principal)
CPT/HCPCS: 99213

== ENCOUNTER 2024-10-27 11:36 | Outpatient (AMB) | payer MEDICAID, SELFPAY ==
--- NOTE | 2024-10-27 11:47 | A.OFFVIS_ITS ---
Vital Signs 10/27/24 11:58 Height 5 ft 4 in Weight 125 lb BMI 21.5 BP 118/66 Intake Visit Reasons: severe hot flashes Middleware Developer Required: Yes Middleware Developer Language: Chief Program Officer Services: Middleware Developer Present (in person) Middleware Developer Name: Bridget RAE Information Interpreted: non-clinical & clinical Accompanied by: Self / Same As Patient Allergies No Known Allergies [No Known Allergies*] Allergy (Verified 10/27/24 11:59) Is last menstrual period known: Yes Last menstrual period: 10/20/24 HPI Comments Details: The patient is presenting complaining of hot flashes and night sweats over the last few months associated with weight loss. The patient menstrual cycles are regular no other associated symptoms PFSH Medical History Hx of breast lump History of melanoma Surgical History Hx of breast augmentation Hx of oral surgery History of loop electrical excision procedure (LEEP) Hx of tubal ligation Family History Father Diabetes mellitus Mother Hypertension Maternal Grandmother History of breast cancer Maternal Aunt History of breast cancer Social History Household Members: Children Housing: Apartment Alcohol intake: current Alcohol intake frequency: holidays/special occasions only Patient Tobacco Use Status: Never used Tobacco service: No Current occupational status: employed 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 Sexual orientation: Straight/Heterosexual Gender identity: Female Female Reproductive History Menstrual Age of Menarche: 11 Date of last menstrual period: 10/20/24 Review of Systems Const All systems reviewed & are unremarkable except as noted in HPI and below Reports as per HPI and Reports no additional complaints GI Reports no additional complaints Reports no additional complaints Physical Exam Vital Signs: Last Vital Signs BP 118/66 10/27/24 11:58 BMI result Body Mass Index 21.5 General: Yes no CVA tenderness External Female Exam: normal external appearance and normal appearance of the urethra Speculum Exam - Vagina: normal appearance of the vagina, normal palpation, no lesions and no masses Speculum Exam - Cervix: normal appearance of the cervix, normal palpation, no lesions, no masses and nontender Bimanual exam- vagina & uterus: normal bimanual exam, normal palpation, uterine size normal, normal palpation, uterine shape normal, No Cervical tenderness present and non-tender Bimanual Exam- Adnexa, other: normal adnexae Back/Spine/Pelvis Back: no CVA tenderness Assessment & Plan Assessment & Plan (1) Hot flashes: Code(s): R23.2 - [place] Category: Medical Plan: Discussed with the patient the average age of menopause being 51, and other possible cause of hot flashes night sweats , will order FSH/LH, TSH, instructions given to patient to schedule a follow-up appointment in 2 weeks and to call her PCP for further workup to rule out non gas torch solderer causes of hot flashes and weight loss. All questions answered, the patient verbalized understanding Orders: Orders TSH reflex Free T4 Today R23.2 - [place] Follicle Stimulating Hormone Today R23.2 - [place] Lutenizing Hormone Today R23.2 - [place] Coding Level of Care Code Est Pt Level 3 (71450) Diagnoses Hot flashes R23.2
[2024-10-27 11:58] VITALS: BP 118/66; BMI 21.5
== END 2024-10-27 12:50 | disposition home or self-care (01) ==
PROVIDERS: PCP Internal Medicine; Visit Provider Obstetrics & Gynecology
DX: R23.2 Flushing (principal)
CPT/HCPCS: 99213

== ENCOUNTER 2024-10-27 11:36 | Outpatient (REF) | payer MEDICAID, SELFPAY ==
[2024-10-27 14:18] LABS: TSH reflex Free T4 1.03 uIU/mL (0.32-4.0)
[2024-10-28 15:53] LABS: Follicle Stimulating Hormone 8.1 mIU/mL; Lutenizing Hormone 10.3 mIU/mL
== END 2024-10-27 11:37 | disposition home or self-care (01) ==
LOC: HO.LAB 11:36
PROVIDERS: PCP Internal Medicine; Visit Provider Obstetrics & Gynecology
DX: R23.2 Flushing (principal); R61 Generalized hyperhidrosis
CPT/HCPCS: 36415; 83001; 83002; 84443; 99212; 99459

== ENCOUNTER 2024-11-13 11:25 | Outpatient (AMB) | payer MEDICAID, SELFPAY ==
--- NOTE | 2024-11-13 11:28 | MHC.OFFVIS ---
Intake Visit Reasons: labs results Auto Adjudication Specialist Required: Yes Auto Adjudication Specialist Language: Shine Worker Services: Auto Adjudication Specialist Present (Inside Secure) Auto Adjudication Specialist Name: Jeannette [id number] Information Interpreted: clinical only Ground Source Heat Pump Technician: Ground Source Heat Pump Technician Present (Sarah) Accompanied by: Self / Same As Patient Allergies No Known Allergies [No Known Allergies*] Allergy (Verified 11/13/24 11:32) HPI Comments Details: Presenting for follow-up. TSH within normal. FSH/LH =8.01/10.3 PFSH Medical History Hx of breast lump History of melanoma Surgical History Hx of breast augmentation Hx of oral surgery History of loop electrical excision procedure (LEEP) Hx of tubal ligation Family History Father Diabetes mellitus Mother Hypertension Maternal Grandmother History of breast cancer Maternal Aunt History of breast cancer Social History Household Members: Children Housing: Apartment Alcohol intake: current Alcohol intake frequency: holidays/special occasions only Patient Tobacco Use Status: Never used Tobacco service: No Current occupational status: employed 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 Instructions given the patient to call her PCP to initiate a workup to rule out other non gynecological cause for her hot flashes. All questions answered, the patient verbalized understanding and agreed with the plan. Coding Level of Care Code Est Pt Level 3 (83300) Diagnoses Hot flashes R23.2
--- OUTSIDE RECORDS SUMMARY | 2024-11-13 15:19 | XMS_ITS | Clinical Summary ---
Author Organization [employer] Address [address] [facility] [address] [place] [address] Care Team Providers Care Sous Chef Name Role Phone Vic Anne MD Primary Care Provide r Allergies No known active allergies Medications fluticasone (Flonase Allergy Relief) 50 MCG/ACT nasal spray Administer 2 sprays into affected nostril(s) at bed time. 06/10/20 19 Active acetaminophen (Tylenol) 325 MG tablet Take 2 tablets by mouth in the morning and 2 tablets at noon and 2 tablets in the evening and 2 tablets before bedtime. 02/02/20 17 Active PARoxetine (Paxil) 10 MG tabletIndicati ons:Anxiety Take 1 tablet (10 mg) by mouth in the morning. 30 tablet 3 08/02/20 23 Active Diclofenac Sodium 1 % gel APPLY 1 INCH TOPICALLY EVERY MORNING AND AT BEDTIME NEEDED FOR PAIN 100 g 11/04/19 25 Active Diclofenac Sodium 1 % gel APPLY 1 INCH TOPICALLY IN THE MORNING AND AT BEDTIME IF NEEDED FOR PAIN 100 g 03/07/20 24 025 Discontinued ibuprofen 400 MG tablet TAKE 1 TABLET BY ORAL ROUTE EVERY 6 HOURS NEEDED NEEDED FOR PAIN AND/OR FEVER 30 tablet 06/27/20 24 025 Discontinued(Th erapy completed) Active Problems Problem Noted Date Diagnosed Date Encounter for preventive health examination 01/14 Assessment & Plan (02/08/2024 10:28 AM EDT): Discussed with patient re increase fresh fruit and vegetable intake. Counseled re moderate exercise as tolerated, up to 20min/d Patient feels safe at home. PAP smear up to date, next one due 2027 Mammogram ordered by [employer] Eye exam up to date, next one due 2024 CRC screen due on 2028 Labs to be ordered Vaccinations decline Covid booster, order IZ titers Dental visit 05/2024 Lipoma of left upper extremity 02/08/2024 Assessment & Plan (02/08/2024 10:28 AM EDT): Surgical site MRI finding discussed w pt, reassurance Use diclofenac gel PRN + heat pad to affected area Reconsult PRN, consider musculoskeletal pain Mass of left upper extremity 01/17/2024 Assessment & Plan (01/17/2024 10:11 AM EDT): 2x2 cm palpable mass left upper extremity pt with a hx of melanoma in situ s/p wide resection in that area Plan: MRI left upper extremity Refer back to Dr. Daniels Bilateral foot pain 02/27/2023 Assessment & Plan (02/27/2023 12:38 PM EDT): New onset of bilateral foot pain, exam shows multiple small calluses. Pt requesting a Podiatry evaluation Chronic neck pain 02/21/2023 Assessment & Plan (02/27/2023 12:37 PM EDT): Pt here Currently doing ok She has chronic right sided neck pain Pt used to follow at [facility]. Previous work up included an MRI of her cervical spine on 10/04/2015 that aside from some spondylosis was otherwise unrevealing In the past she has done well with PT , I had recommended to continue NSAIDs since she does not want to take a muscle relaxant Previously she was referred back to [facility] but end up being seeing at the Pain Clinic of Dr Coates at [facility]. He recommended steroid injections, back then patient declined NCS ordered to r/o radiculopathy was NEGATIVE Cervical intraepithelial neoplasia grade 2 03/28 Melanoma in situ of upper extremity 12/26/2014 Assessment & Plan (02/08/2024 10:27 AM EDT): S/p excision 10 yrs ago, recent MRI of the area is negative Fu w/ dermatology in 2 wks for routine exam Fu w PCP Assessment & Plan (01/17/2024 10:10 AM EDT): Pt here with c/o newly developed area of prominence left arm adjacent to surgical scar x 2 months. On today's exam she has a palpable mass 2x2 cm approx tender to mpalpation. Of note pt was treated for Melanoma left arm. original lesion measured 1.4 mm there was mitotic activity ( 9 mm2) No evidence of epidermal ulceration. It was a Aron level 4 lesion. On 12/01/2014 she underwent wide resection of the left arm with sentinel lymph node biopsy of the left axilla. The re excised skin revealed no evidence of residual melanoma. 3 lymph nodes were negative for metastatic disease She was under the care of Dr Daniels from the [facility] and Dr. Felicia Jaime. she will continue to follow up with both. Last seen by Surgical Oncology 01/05/[address] Duarte 08/14/2023 Plan: Obtain MRI left upper extremity to evaluate palpable mass in patient with a Hx of melanoma Refer back to Dr daniels surgical oncologist Assessment & Plan (02/27/2023 12:38 PM EDT): Pt treated for Melanoma left arm. original lesion measured 1.4 mm there was mitotic activity ( 9 mm2) No evidence of epidermal ulceration. It was a Aron level 4 lesion. On 12/01/2014 she underwent wide resection of the left arm with sentinel lymph node biopsy of the left axilla. The re excised skin revealed no evidence of residual melanoma. 3 lymph nodes were negative for metastatic disease She was under the care of Dr Daniels from the [facility] and Dr. Duarte Dermatology. she will continue to follow up with both. Last seen by Surgical Oncology 01/05/2016 Today requesting a referral to Dr. Duarte, extended Anxiety 05/13/2012 Assessment & Plan (02/27/2023 12:39 PM EDT): Pt with a long History of anxiety, In the past I had referred her to a psychotherapist but she never went. She continues to decline to see a psychotherapist but was interested in trying a medication. She is on Paxil 20 mg po daily Today she tells me she is doing very well, taking medication as prescribed Encounters Date Type Department Care Team Description 10/30/2024 Refill [facility] [address] [place] [address] Sophia Horton MD 10/27/2024 Orders Only GENERIC EXTERNAL DATA DEPARTMENT Provider, Generic External Data from Last 3 Months Immunizations Name Administration Dates Next Due MMR 07/07/2018 TD (adult), 2 Lf tetanus tox oid, preservative free, adsorbed 06/13/2019,12/25/2010,08/01/2004 Tdap 06/10/2018 Social History Tobacco Use Types Packs/Day Years Used Date Smoking Tobacco: Never Passive Smoke Exposure: Never Smokeless Tobacco: Never Tobacco Cessation:Counseling Given: Not Answered Alcohol Use Standard Drinks/Week Comments Never 0 (1 standard drink = 0.6 oz pur e alcohol) Depression Answer Date Recorded Patient Health Questionnaire-9 Score 2 02/27/2023 Housing Stability Answer Date Recorded What is your housing situation today? I have maxim bey 01/31/[address] you li ve. Do you have problems with any of the following? Pests such as bugs, ants, or mice 01/31/2024 Food Insecurity Answer Date Recorded Within the past 12 months, y ou worried that your food would run out before you got money to buy more: Never True 07/30/2023 Within the past 12 months,th e food you bought just didn't last and you didn't have enough money to get more: Never True Transportation Answer Date Recorded In the past 12 months, has l ack of transportation kept you from medical appts, meetings, work or from getting things needed for daily living? No 07/30/2023 Utilities Answer Date Recorded In the past 12 months, has t he electric, gas, oil or water company threatened to shut off services in your home? No 07/30/2023 Depression Answer Date Recorded Patient Health Questionnaire-2 Score 0 02/27/2023 Comments Unknown Sex and Gender Information Value Date Recorded Sex Assigned at Female 08/14/2022 10:17 AM EDT Legal Sex Female 10:17 AM EDT Gender Identity Female 08/14/2022 10:17 AM EDT Sexual Orientation Don't know 08/14/2022 10 :17 AM EDT Last Filed Vital Signs Vital Sign Reading Time Taken Comments Blood Pressure 100/72 02/08/2024 9:27 AM EDT Pulse 80 02/08/2024 9:27 AM EDT Temperature 36.7 ??C (98.1 ??F) 02/08/2024 9:27 AM ED T Respiratory Rate 12 02/08/2024 9:27 AM EDT Oxygen Saturation 99% 01/17/2024 9:58 AM EDT Inhaled Oxygen Concentration - - Weight 62.6 kg (138 lb) 02/08/2024 9:27 AM EDT Height 162.6 cm (5' 4 ) 02/08/2024 9:27 AM EDT Body Mass Index 23.69 02/08/2024 9:27 AM EDT Plan of Treatment Upcoming Encounters Date Type Department Care Team (Late st Contact Info) Description 11/21/2024 3:15 PM EST Office Visit [facility] [address] [place], [place] [phone] Saba Franks MD [address] [place] [address] Health Maintenance Due Date Last Done Comments Derm Melanoma Skin Check 01/23/1985 Alcohol/Substance Use Screening 1996 Hepatitis B Vaccines (1 of 3 - 19+ 3-dose series) 2003 Depression Screening 02/28/2024 02/27/2023, 02/28/20 23 COVID-19 Vaccine ( season) 2024 04/01/2021, 03/11/2021 Influenza Vaccine (#1) 2024 SDOH Screening 01/30/2025 01/31/2024 Family Planning (PISQ) 02/07/2025 02/08/2024 Tobacco Screening 02/07/2025 02/08/2024 Pap Smear 11/28/2025 11/28/2022 Mammogram 03/12/2026 03/12/2024 Cervical Cancer Screening 11/28/2027 HPV/Cotest 11/28/2027 11/28/2022, 06/28/2016 DTaP/Tdap/Td Vaccines (3 - Td or Tdap) 06/13/2029 06/13/2019, 06/10/2018, 12/25/2010, Additional history exists Zoster Vaccines (1 of 2) 2034 RSV Patients and Patients Aged 60 years or older (1 - 1-dose 75+ series) 2059 HIV Screening Completed 02/07/2024, 11/15, 09/14/2021, Additional history exists Hepatitis C Screening Completed 02/07/2024 , 11/28/2022, 09/14/2021, Additional history exists HIB Vaccines Aged Out No longer eligi ble based on patient's age to complete this topic HPV Vaccines Aged Out No longer eligi ble based on patient's age to complete this topic Hepatitis A Vaccines Aged Out No long er eligible based on patient's age to complete this topic IPV Vaccines Aged Out No longer eligi ble based on patient's age to complete this topic Meningococcal Vaccine Aged Out No alisa jani eligible based on patient's age to complete this topic Pneumococcal Vaccine: Pediatrics (0 to 5 Years) and At-Risk Patients (6 to 49) Years) Aged Out No longer eligible based on patient's age to complete this topic RSV under 20 months Aged Out No longe r eligible based on patient's age to complete this topic Rotavirus Vaccines Aged Out No longer eligible based on patient's age to complete this topic Procedures Procedure Name Priority Date/Time Associated Diagnosis Comments LH Routine 10/27/2024 12:53 PM EST FSH Routine 10/27/2024 12:53 PM EST TSH W/REFLEX TO FT4 Routine 10/27/2024 1 2:53 PM EST BI MAMMOGRAM SCREEN W GABRIELE W IMPLANTS KM Routine 03/12/2024 12:00 PM EDT HEPATITIS C ANTIBODY Routine 02/07/2024 10:47 AM EDT HIV 1/2 ANTIGEN/ANTIBODY, FOURTH GENERATION W/RFL Routine 02/07/2024 10:47 AM EDT HPV MRNA E6/E7 REFLEX TO HPV 16, 18/45 Routine 11/28/2022 11:41 AM EST PAP SMEAR Routine 11/28/2022 11:41 AM EST from Last 3 Months or Most Recently Relevant to Health Maintenance Results * TSH with Reflex to Free T4 (10/27/2024 12:53 PM EST) TSH reflex Free T4 1.03 0.32 - 4.0 uIU/mL [facility] 10/27/2024 12:5 3 PM EST 10/27/2024 12:53 PM EST Generic External Data Provider LAB BLOOD ORDERAB LES Final Result Performing Organization Address [facility] Co de Phone Number [facility] [address] [place] [phone] * LH (10/27/2024 12:53 PM EST) Lutenizing Hormone 10.3 mIU/mL [facility] Comment:Reference Range Fol licular Phase 1.9-12.5 Mid-Cycle Peak 8.7-76.3 Luteal Phase 0.5-16.9 Postmenopausal 10.0-54.7THIS TEST WAS PERFORMED AT:[employer] [place] [phone] BOOGIE MD 10/27/2024 12:5 3 PM EST 10/27/2024 12:53 PM EST Generic External Data Provider LAB BLOOD ORDERAB LES Final Result Performing Organization Address [facility]/ZIP Co de Phone Number [facility] [address] [place] [phone] * FSH (10/27/2024 12:53 PM EST) Follicle Stimulating Hormone 8.1 mIU/mL [facility] Comment:Reference Range Foll icular Phase 2.5-10.2 Mid-cycle Peak 3.1-17.7 Luteal Phase 1.5- 9.1 Postmenopausal 23.0-116.3THIS TEST WAS PERFORMED AT:[facility] [place] [phone] BOOGIE MD 10/27/2024 12:5 3 PM EST 10/27/2024 12:53 PM EST us Generic External Data Provider LAB BLOOD ORDERAB LES Final Result [facility] [address] [place] [address] [phone] * BI Mammogram Screen w/ Gabriele w/ Implants Km (03/12/2024 12:00 PM EDT) Anatomical Region Laterality Modality Mammography 03/12/2024 12:0 0 PM EDT Narrative 04/07/2024 1:01 PM EDT ? [facility] [place] ? [address] ?[place] [address] ? Mammography Report ? Signed ? Patient: Warren Olivo,Sonia ?M ?? R#: [id number] ? : 1985 ?Acct:[id number] ? Age/Sex: 38 / F ?ADM Date: /29/24 ? Loc: HO.MAMMO ? Attending Dr: Albino Rocha MD ? Ordering Physician: Albino Rocha MD ?Results: 2Benign ?? Findings ? Date of Service: //24 ?Follow Up: 1 Year From Orig ?? inal Mammogram ? Procedure(s): MM tomosynthesis screen imp BI ?? Accession Number(s): [id number] ? cc: Sophia Horton MD; Albino Rocha MD ? EXAMINATION: ?? MM SCREENING DIGITAL BREAST TOMOSYNTHESIS, BILATERAL WITH BREAST ?? IMPLANTS ? CLINICAL INFORMATION: ? Screening. Asymptomatic. ? COMPARISON: ?? Mammography: This study is compared with the prior mammogram from 2020. ? TECHNIQUE: ?? Digital mammography is performed in craniocaudal and mediolateral ?? oblique views along with computer-aided detection (CAD). Digital breast ?? tomosynthesis is performed in implant-displaced craniocaudal and ?? implant-displaced mediolateral oblique views along with computer-aided ?? detection (CAD). Synthesized 2D images are generated from the ?? tomosynthesis. ? FINDINGS: ?? The breasts are heterogeneously dense, which may obscure small masses ?? (ACR BI-RADS breast composition Category c). ? There are bilateral, mammographically intact, retropectoral, saline and ?? breast implants. ? There are no significant masses, abnormal calcifications, or other ?? abnormalities. ? There are surgical clips in the left axilla from prior lymph node ?? evaluation in the setting of a personal history of melanoma of the left ?? upper extremity. ? MM/MM tomosynthesis screen imp BI ?? IMPRESSION: ?? No mammographic evidence of malignancy. ? ASSESSMENT: ? BI-RADS BI-RADS 2 - Benign Findings ? RECOMMENDATION: ?? Routine annual mammography screening. ? 1 year F/U ? This patient's information was entered into a reminder system with a ?? target due date for their next mammogram. ?? BI-RADS 2 ? Dictated By: ?Akua Jack MD ? Signed By: ?<Electronically signed by Akua Jack MD in OV> ? 06/24/24 1257 ? DD/ 1200 ? TD/TT: ? Electrostatic Paint Operator: ? Procedure Note Donotuseinterpreter, Image - 04/07/2024 [place] [facility] [address] [place] [address] Mammography Report Signed Patient: Kori Dowell R#: [id number] : 1985Acct:[id number] Age/Sex: 38 / FADM Date: 03/12/24 Loc: HO.MAMMO Attending Dr: Albino Rocha MD Ordering Physician: Albino Rochaesults: 2Benign Findings Date of Service: 03/12/24Follow Up: 1 Year From Orig inal Mammogram Procedure(s): MM tomosynthesis screen imp BI Accession Number(s): [id number] cc: Sophia Horton MD; Albino Rocha MD EXAMINATION: MM SCREENING DIGITAL BREAST TOMOSYNTHESIS, BILATERAL WITH BREAST IMPLANTS CLINICAL INFORMATION: Screening. Asymptomatic. COMPARISON: Mammography: This study is compared with the prior mammogram from 2020. TECHNIQUE: Digital mammography is performed in craniocaudal and mediolateral oblique views along with computer-aided detection (CAD). Digital breast tomosynthesis is performed in implant-displaced craniocaudal and implant-displaced mediolateral oblique views along with computer-aided detection (CAD). Synthesized 2D images are generated from the tomosynthesis. FINDINGS: The breasts are heterogeneously dense, which may obscure small masses (ACR BI-RADS breast composition Category c). There are bilateral, mammographically intact, retropectoral, saline and breast implants. There are no significant masses, abnormal calcifications, or other abnormalities. There are surgical clips in the left axilla from prior lymph node evaluation in the setting of a personal history of melanoma of the left upper extremity. MM/MM tomosynthesis screen imp BI IMPRESSION: No mammographic evidence of malignancy. ASSESSMENT: BI-RADS BI-RADS 2 - Benign Findings RECOMMENDATION: Routine annual mammography screening. 1 year F/U This patient's information was entered into a reminder system with a target due date for their next mammogram. BI-RADS 2 Dictated By: Akua Jack MD Signed By: <Electronically signed by Akua Jack MD in OV> 04/07/24 1257 DD/ 1200 TD/TT: Electrostatic Paint Operator: [facility] External Provider IMG BI PROCEDURES Final Result * Hepatitis C Ab (02/07/2024 10:47 AM EDT) Hepatitis C Antibody Nonreactive Nonreactive [facility] Comment:Antibodies to HCV no t detected; does not exclude early acuteHCV infection. 02/07/2024 10:4 7 AM EDT 02/07/2024 10:47 AM EDT Generic External Data Provider LAB BLOOD ORDERAB LES Final Result Performing Organization Address [facility] Co de Phone Number [facility] [address] [place] [phone] * HIV-1/2 Antigen and Antibodies, Fourth Generation, with Reflexes (02/07/2024 10:47 AM EDT) HIV AB/AG Nonreactive Nonreactive [facility] Comment:HIV-1 p24 Ag and/or HIV-1/HIV-2 Ab not detected.A test result that is nonreactive does not exclude thepossibility of exposure to or infection with HIV-1 and/orHIV-2. Nonreactive results in this assay for individualswith prior exposure to HIV-1 and/or HIV-2 may be due toantigen and antibody levels that are below the limit ofdetection of this assay.The [employer] HIV Ag/Ab Combo assay result andsupplemental assay results should be interpreted inconjunction with the patient's clinical presentation,history and other laboratory results. If the results areinconsistent with clinical evidence, additional testing issuggested to confirm the result. 02/07/2024 10:4 7 AM EDT 02/07/2024 10:47 AM EDT Generic External Data Provider LAB BLOOD ORDERAB LES Final Result Performing Organization Address City/[facility]/ZIP Co de Phone Number [facility] [address] [place] [phone] * HPV mRNA E6/E7 w/Reflex to HPV Genotypes 16, 18/45 (11/28/2022 11:41 AM EST) HPV nRNA E6/E7 Not Detected Not Detected [facility] Comment:Methodology: Transcr iption-Mediated AmplificationThis assay detects E6/E7 viral messenger RNA (mRNA) from 14high-risk HPV types (16,18,31,33,35,39,45,51,52,56,58,59,66,68).Cervical sources are required for HPV testing.If a vaginal source from a patient who has had atotal hysterectomy with removal of cervix wassubmitted, please contact the testing laboratoryfor alternative testing options.For additional information, please refer tohttp://education.[employer]faq/PDB884i3(This link if provided for information/educational purposes only.)THIS TEST WAS PERFORMED AT:[employer] [place] [phone] BOOGIE MD HPV mRNA E6/E7 [facility] HPV 16 RNA [facility] HPV 18/45 RNA [facility] 11/28/2022 11:4 1 AM EST 11/29/2022 3:45 PM EST [facility] External Provider LAB CYT OLOGY ORDERABLES Final Result [facility] [address] [place] [address] [phone] * Pap Smear (11/28/2022 11:41 AM EST) 11/28/2022 11:4 1 AM EST 11/29/2022 3:45 PM EST Narrative [facility] - 12/03/2022 4:03 PM EST ----- ------- Name: Sonia Dowell ? Age/Sex: 37/F ? : 1985 Unit#: [id number] ?? Attend Dr: Albino Rocha MD ?Re11/28/22 ?Status: DEP REF ? [facility] ?Disch: ? ----- ------- SPEC : [id number] ? RECD: 11/29/22-0528 ? STATUS: ??SOUT ? REQ NUM: [id number] ? PATT: 11/28/22-114 ? SUBM DR: Albino Rocha MD ? ENTERED: ??11/29/22 ?SP TYPE: Pap Smr ?OTHR DR: Vic Maurer MD ?? ORDERED: ??Pap Smear ? Interpretation ?? Satisfactory for evaluation. ?? Negative for intraepithelial lesion or malignancy. ?? Coccobacilli consistent with shift in vaginal tran. ? HPV mRNA E6/E7: ?NOT DETECTED ? This assay detects E6/E7 viral messenger RNA (mRNA) from 14 high-risk HPV types (16, 18, ?? 31, 33, 35, 39, 45, 51, 52, 56, 58, 59, 66, 68) ? HPV testing performed by [employer], [place] [employer], [place]. ??See reference laboratory ?? portion of the EMR for entire report. ?Clinical Information LMP: 11/24/2022 Previous PAP test: 2018, Abnormal Other history: PETE 3 ? Material Received ?? ThinPrep-Cervical Copies To: ?? Vic Maurer MD ?? [address] ?? [place] [address] ?? [phone] ?? Albino Rocha MD ?? [address] [place] [address] [facility] ?? [place] [address] ?? [phone] ----- ------- Signed (signature on file) Sherrie Meneses Elijah 12/03/22 1607 ? ----- ------- ? END OF REPORT ? [facility] External Provider LAB CYT OLOGY ORDERABLES Final Result [facility] [address] [place], [place] [phone] from Last 3 Months or Most Recently Relevant to Health Maintenance Insurance [employer] Care Teams Sous Chef Relationship Specialty Start Date End Date Vic Anne MD [address] [place] [id number] PCP - General Internal Medicine 12/10/14
--- OUTSIDE RECORDS SUMMARY | 2024-11-13 15:19 | XMS_ITS | Encounter Summary ---
Author Organization [employer] Address [address] [facility] 7t [place] [address] Care Team Providers Care Supervisor Transcribing Operators Name Role Phone Vic Anne MD Primary Care Provide r Encounter Details Date Type Department Care Team ([facility] Contact Info) Description 10/27/2024 Orders Only GENERIC EXTERNAL DATA DEPARTMENT Provider, Generic External Data Social History Tobacco Use Types Packs/Day Years Used Date Smoking Tobacco: Never Passive Smoke Exposure: Never Smokeless Tobacco: Never Alcohol Use Standard Drinks/Week Comments Never 0 (1 standard drink = 0.6 oz pur e alcohol) Depression Answer Date Recorded Patient Health Questionnaire-9 Score 2 02/27/2023 Housing Stability Answer Date Recorded What is your housing situation today? I have maximghassan bey 01/31/[address] you [...] Don't know 08/14/2022 10 :17 AM EDT documented as of this encounter Plan of Treatment Upcoming Encounters Date Type Department Care Team (Late st Contact Info) Description 11/21/2024 3:15 PM EST Office Visit [facility] [address] [place] [address] Saba Franks MD [address] [place] [address] documented as of this encounter Procedures Procedure Name Priority Date/Time Associated Diagnosis Comments TSH W/REFLEX TO FT4 Routine 10/27/2024 1 2:53 PM EST LH Routine 10/27/2024 12:53 PM EST FSH Routine 10/27/2024 12:53 PM EST documented in this encounter Results * LH (10/27/2024 12:53 PM EST) Lutenizing Hormone 10.3 mIU/mL [facility] Comment:Reference Range Foll icular Phase 1.9-12.5 Mid-Cycle Peak 8.7-76.3 Luteal Phase 0.5-16.9 Postmenopausal 10.0-54.7THIS TEST WAS PERFORMED AT:[facility] [place] [phone] BOOGIE MD 10/27/2024 12:5 3 PM EST 10/27/2024 12:53 PM EST us Generic External Data Provider LAB BLOOD ORDERAB LES Final Result [facility] [address] [place] [phone] * FSH (10/27/2024 12:53 PM EST) Follicle Stimulating Hormone 8.1 mIU/mL [facility] Comment:Reference Range Fol licular Phase 2.5-10.2 Mid-cycle Peak 3.1-17.7 Luteal Phase 1.5- 9.1 Postmenopausal 23.0-116.3THIS TEST WAS PERFORMED AT:[facility] [place] [phone] BOOGIE MD 10/27/2024 12:5 3 PM EST 10/27/2024 12:53 PM EST us Generic External Data Provider LAB BLOOD ORDERAB LES Final Result Performing Organization Address [facility]/ZIP Co de Phone Number [facility] [address] [place] [phone] * TSH with Reflex to Free T4 (10/27/2024 12:53 PM EST) TSH reflex Free T4 1.03 0.32 - 4.0 uIU/mL [facility] 10/27/2024 12:5 3 PM EST 10/27/2024 12:53 PM EST Generic External Data Provider LAB BLOOD ORDERAB LES Final Result Performing Organization Address [facility]/ZIP Co de Phone Number [facility] [address] [place] [phone] documented in this encounter Visit Diagnoses Not on filedocumented in this encounter Additional Health Concerns Assessment Noted Time PHQ-9 Depression Total Score: 2 02/28/20 23 10:07 AM EDT documented as of this encounter Care Teams Supervisor Transcribing Operators Relationship Specialty Start Date End Date Vic Anne MD [address] [place] [phone] PCP - General Internal Medicine 12/10/14 documented as of this encounter
--- OUTSIDE RECORDS SUMMARY | 2024-11-13 15:19 | XMS_ITS | Encounter Summary ---
Author Organization [employer] Address [address] [facility] 7t [place] [address] Care Team Providers Care Concrete Inspector Name Role Phone Vic Anne MD Primary Care Provide r Reason for Visit * Reason Comments Med Refill Encounter Details Date Type Department Care Team ([facility] st Contact Info) Description 10/30/2024 Refill [facility] [address] [place], [place] [phone] Sophia Horton MD [address] [place], [place] [phone] Social History Tobacco Use Types Packs/Day Years [...] Description 11/21/2024 3:15 PM EST Office Visit [facility] [address] [place] [phone] Saba Franks MD [address] [place] [phone] documented as of this encounter Visit Diagnoses Not on filedocumented in this encounter Additional Health Concerns Assessment Noted Time PHQ-9 Depression Total Score: 2 02/28/20 23 10:07 AM EDT documented as of this encounter Care Teams Concrete Inspector Relationship Specialty Start Date End Date Vic Anne MD [address] [place] [phone] PCP - General Internal Medicine 12/10/14 documented as of this encounter
--- OUTSIDE RECORDS SUMMARY | 2024-11-13 15:19 | XMS_ITS | Clinical Summary ---
Author Organization [employer] [facility] ity Address [address] [place] [address] Care Team Providers Care Nurse Esthetician Name Role Phone Vic Maurer MD Primary Care Provi han Social History Tobacco Use Types Packs/Day Years Used Date Smoking Tobacco: Never Assessed Sex and Gender Information Value Date Recorded Sex Assigned at Not on file Gender Identity Not on file Sexual Orientation Not on file Plan of Treatment Health Maintenance Due Date Last Done Comments Breast Cancer Screening 1984 DTaP,Tdap,and Td Vaccines (1 - Tdap) 2003 Hepatitis B Vaccines (1 of 3 - 19+ 3-dose series) 2003 Cervical Cancer Screening: P ap Smear 2005 COVID-19 Vaccine (2023-2 5 season) 2024 Influenza Vaccine (#1) 2024 HIB Vaccines Aged Out No longer eligi [...] on patient's age to complete this topic MMR Vaccines Aged Out No longer eligi ble based on patient's age to complete this topic Meningococcal ACWY Vaccine Aged Out N o longer eligible based on patient's age to complete this topic Pneumococcal Vaccine: Pediat rics (0 to 5 Years) and At-Risk Patients (6 to 64 Years) Aged Out No longer eligible b ased on patient's age to complete this topic RSV Immunization Patients Un han 20 months Aged Out No longer eligible b ased on patient's age to complete this topic Varicella Vaccines Aged Out No longer eligible based on patient's age to complete this topic Care Teams Nurse Esthetician Relationship Specialty Start Date End Date Vic Maurer MD [address] [place] [address] [place] [phone] PCP - General Internal Medicine 03/14/13
--- OUTSIDE RECORDS SUMMARY | 2024-11-13 15:19 | XMS_ITS | Encounter Summary ---
Author Organization [employer] Address [address] [facility] 7t [place] [address] Care Team Providers Care Automotive Machinist Name Role Phone Vic Anne MD Primary Care Provide r Reason for Visit * Reason Onset Date Comments Reschedule 09/14/2023 Encounter Details Date Type Department Care Team ([facility] Contact Info) Description 09/14/2023 Telephone [facility] [address] [place], [place] [phone] Vic Anne MD [address] [place], [place] [phone] Reschedule Social History Tobacco Use Types Packs/Day Years Used Date Smoking Tobacco: Never Passive Smoke Exposure: Never Smokeless Tobacco: Never Depression Answer Date Recorded Patient Health Questionnaire-9 Score 2 02/27/2023 Housing Stability Answer Date Recorded What is your housing situation today? I have maximghassan bey 07/30/[address] you li ve. Do you have problems with any of the following? None of the above 07/30/2023 Food Insecurity Answer Date Recorded Within the [...] t he electric, gas, oil or water [employer] threatened to shut off services in your [...] AM EDT documented as of this encounter Miscellaneous Notes * Telephone Encounter - Estela Rios - 09/14/2023 12:56 PM EST Tc from pt requesting r/s 09/18 appt, abstract writer attempted to schedule no availability on September. documented in this encounter Plan of Treatment Upcoming Encounters Date Type Department Care Team (Late st Contact Info) Description 11/21/2024 3:15 PM EST Office Visit [facility] [address] [place] [address] Saba Franks MD [address] [place] [address] documented as of this encounter Visit Diagnoses Not on filedocumented in this encounter Additional Health Concerns Assessment Noted Time PHQ-9 Depression Total Score: 2 02/28/20 23 10:07 AM EDT documented as of this encounter Care Teams Automotive Machinist Relationship Specialty Start Date End Date Vic Anne MD [address] [place] [address] PCP - General Internal Medicine 12/10/14 documented as of this encounter
== END 2024-11-13 12:48 | disposition home or self-care (01) ==
LOC: HO.HWS 11:25
PROVIDERS: PCP Internal Medicine; Visit Provider Obstetrics & Gynecology
DX: R23.2 Flushing (principal)
CPT/HCPCS: 99213

== ENCOUNTER → 2024-11-13 11:25 | Outpatient (BNVA) | payer MEDICAID, SELFPAY | PROVIDERS: PCP Internal Medicine; Visit Provider Obstetrics & Gynecology | DX: R23.2 Flushing (principal) | CPT/HCPCS: 99212 ==

== ENCOUNTER 2025-02-16 10:05 | Outpatient (REF) | payer MEDICAID, SELFPAY ==
--- OUTSIDE RECORDS SUMMARY | 2025-02-16 12:03 | XMS_ITS | Clinical Summary ---
Author Organization [employer] [facility] ity Address [address] [place] [address] Care Team Providers Care Semaphore Operator Name Role Phone Vic Maurer MD Primary Care Provi [facility] Social History Tobacco Use Types Packs/Day Years Used Date Smoking Tobacco: Never Assessed Comments Unknown Sex and Gender Information Value Date Recorded Sex Assigned at Not on file Legal Sex Female 7:33 PM EST Gender Identity Not on file Sexual Orientation Not on file Plan of Treatment Health Maintenance Due Date Last Done Comments Breast Cancer Screening 1984 DTaP,Tdap,and Td Vaccines (1 - Tdap) 2003 Hepatitis B Vaccines (1 of 3 - 19+ 3-dose series) 2003 Cervical Cancer Screening: P ap Smear 2005 COVID-19 Vaccine (2023-2 5 season) 2024 Influenza Vaccine (Season Ended) 2025 HIB Vaccines Aged Out No longer eligi [...] patient's age to complete this topic Meningococcal B Vaccine Aged Out No l onger eligible based on patient's age to complete [...] age to complete this topic Care Teams Semaphore Operator Relationship Specialty Start Date End Date Vic Maurer MD [address] [phone] PCP - General Internal Medicine 03/14/13
--- OUTSIDE RECORDS SUMMARY | 2025-02-16 12:03 | XMS_ITS | Clinical Summary ---
Author Organization [employer] Address [address] [facility] 7t [place] [address] Care Team Providers Care Office Agent Name Role Phone Vic Anne MD Primary Care Provide r Allergies No known active allergies Medications fluticasone (Flonase Allergy Relief) 50 MCG/ACT nasal spray Administer 2 sprays into affected nostril(s) at bed time. 9 Active acetaminophen (Tylenol) 325 MG tablet Take 2 tablets by mouth in the morning and 2 tablets at noon and 2 tablets in the evening and 2 tablets before bedtime. 7 Active PARoxetine (Paxil) 10 MG tabletIndicatio ns:Anxiety Take 1 tablet (10 mg) by mouth in the morning. 30 tablet 3 3 Active Diclofenac Sodium 1 % gel APPLY 1 INCH TOPICALLY EVERY MORNING AND AT BEDTIME NEEDED FOR PAIN 100 g 5 Active Active Problems Problem Noted Date Diagnosed Date Encounter for preventive health examination 01/14 Assessment & Plan (02/08/2024 10:28 AM EDT): Discussed with patient re increase fresh fruit and vegetable intake. Counseled re moderate exercise as tolerated, up to 20min/d Patient feels safe at home. PAP smear up to date, next one due 2027 Mammogram ordered by [facility] Eye exam up to date, next one [...] neck pain Pt used to follow at [facility]. Previous work up included an MRI of her cervical spine on 10/04/2015 that aside from some spondylosis was otherwise unrevealing In the past she has done well with PT , I had recommended to continue NSAIDs since she does not want to take a muscle relaxant Previously she was referred back to [facility] but end up being seeing at the [facility] Clinic of Dr Coates at [facility] He recommended steroid injections, back then [...] the care of Dr Daniels from the [facility] and Dr. Duarte [...] the care of Dr Daniels from the [facility] and Dr. Duarte [...] Encounters Date Type Department Care Team Description 12/26/2024 Population Health Risk Score [facility] (C[facility]) Department [address] [place] [phone] Provider, Population Health Generic from Last 3 Months Immunizations Name Administration [...] Care Team (Late st Contact Info) Description 03/05/2025 9:30 AM EDT Office Visit [facility] [address] [place] [address] Vic Anne MD [address] [place], [place] [phone] Health Maintenance Due Date Last Done Comments Derm Melanoma Skin Check 01/23/1985 Alcohol/Substance Use Screening 1996 Family Planning (PISQ) 1999 Hepatitis B Vaccines (1 of 3 - 19+ 3-dose series) 2003 Depression Screening 02/28/2024 02/27/2023, 02/28/20 23 COVID-19 Vaccine ( season) 2024 04/01/2021, 03/11/2021 Influenza Vaccine (#1) 2024 SDOH Screening 01/30/2025 01/31/2024 Tobacco Screening 02/07/2025 02/08/2024 Pap Smear 11/28/2025 [...] Procedure Name Priority Date/Time Associated Diagnosis Comments BI MAMMOGRAM SCREEN W GABRIELE W IMPLANTS [...] Recently Relevant to Health Maintenance Results * BI Mammogram Screen w/ Gabriele w/ Implants Km (03/12/2024 12:00 PM EDT) Anatomical Region Laterality Modality Mammography 03/12/2024 12:0 0 PM EDT Narrative 04/07/2024 1:01 PM EDT ? [facility] ? [address] ?[place] [address] ? Mammography Report ? Signed ? Patient: Warren Olivo,Sonia ?M ?? R#: [id number] ? : 1985 ?Acct:[id number] ? Age/Sex: 38 / F ?ADM Date: 03/12/24 ? Loc: HO.MAMMO ? Attending Dr: Albino Rocha MD ? Ordering Physician: Albino Rocha MD ?Results: 2Benign ?? Findings ? Date of Service: 03/12/24 ?Follow Up: 1 Year From Orig ?? inal Mammogram ? Procedure(s): MM tomosynthesis screen imp BI ?? Accession Number(s): [id number] ? cc: Sophia Horton MD; Albino Rocha [...] by Akua Jack MD in OV> ? 04/07/24 1257 ? DD/ 1200 ? TD/TT: ? Immigration Coordinator: ? Procedure Note Donraymundofiorinterpreter, Image - 04/07/2024 Emma [facility] [address] [place] [address] Mammography Report Signed Patient: Kori Dowell R#: [id number] : 1985Acct:[id number] Age/Sex: 38 / FADM Date: 03/12/24 Loc: HO.MAMMO Attending Dr: Albino Rocha MD Ordering Physician: Albino Rochaesults: 2Benign Findings Date of Service: 03/12/24Follow Up: 1 Year From Orig inal Mammogram Procedure(s): MM tomosynthesis screen imp BI Accession Number(s): [id number] cc: Sophia Horton MD; Albino Rocha MD [...] in OV> 04/07/24 1257 DD/ 1200 TD/TT: Immigration Coordinator: [facility] External Provider IMG BI PROCEDURES Final Result * Hepatitis C Ab (02/07/2024 10:47 AM EDT) Hepatitis C Antibody Nonreactive Nonreactive [facility] Comment:Antibodies to HCV no t detected; does not exclude early acuteHCV infection. 02/07/2024 10:4 7 AM EDT 02/07/2024 10:47 AM EDT Generic External Data Provider LAB BLOOD ORDERAB LES Final Result [facility] [address] [place] [phone] * HIV-1/2 Antigen and Antibodies, Fourth Generation, with Reflexes (02/07/2024 10:47 AM EDT) HIV AB/AG Nonreactive Nonreactive [facility] Comment:HIV-1 p24 Ag and/or HIV-1/HIV-2 Ab not detected.A test result that is nonreactive does not exclude thepossibility of exposure to or infection with HIV-1 and/orHIV-2. Nonreactive results in this assay for individualswith prior exposure to HIV-1 and/or HIV-2 may be due toantigen and antibody levels that are below the limit ofdetection of this assay.The [employer] HIV Ag/Ab Combo assay result andsupplemental assay results should be interpreted inconjunction with the patient's clinical presentation,history and other laboratory results. If the results areinconsistent with clinical evidence, additional testing issuggested to confirm the result. 02/07/2024 10:4 7 AM EDT 02/07/2024 10:47 AM EDT us Generic External Data Provider LAB BLOOD ORDERAB LES Final Result [facility] [address] [place] [phone] [phone] * HPV mRNA E6/E7 w/Reflex to HPV Genotypes 16, 18/45 (11/28/2022 11:41 AM EST) HPV nRNA E6/E7 Not Detected Not Detected [facility] Comment:Methodology: Transcr iption-Mediated AmplificationThis assay detects E6/E7 viral messenger RNA (mRNA) from 14high-risk HPV types (16,18,31,33,35,39,45,51,52,56,58,59,66,68).Cervical sources are required for HPV testing.If a vaginal source from a patient who has had atotal hysterectomy with removal of cervix wassubmitted, please contact the testing laboratoryfor alternative testing options.For additional information, please refer tohttp://education.[employer]/faq/IHR197m3(This link if provided for information/educational purposes only.)THIS TEST WAS PERFORMED AT:[facility] [place] [phone] BOOGIE MD HPV mRNA E6/E7 TNP [facility] HPV 16 RNA TNP [facility] HPV 18/45 RNA TNP [facility] 11/28/2022 11:4 1 AM EST 11/29/2022 3:45 PM EST [facility] External Provider LAB CYT OLOGY ORDERABLES Final Result Performing Organization Address City/State/[facility] Co de Phone Number [facility] [address] [place] [phone] * Pap Smear (11/28/2022 11:41 AM EST) 11/28/2022 11:4 1 AM EST 11/29/2022 3:45 PM EST Narrative [facility] - 12/03/2022 4:03 PM EST ----- ------- Name: Sonia Dowell ? Age/Sex: 37/F ? : 1985 Unit#: [id number] ?? Attend Dr: Albino Rocha MD ?Re11/28/22 ?Status: DEP REF ? Location: .LAB ?Disch: ? ----- ------- SPEC : [id number] ? RECD: 11/29/225 ? STATUS: ??SOUT ? REQ NUM: [id number] ? PATT: 11/28/22-114 ? SUBM DR: Albino [...] 66, 68) ? HPV testing performed by [employer], [place], [place]. ??See reference laboratory ?? portion of the EMR for entire report. ?Clinical Information LMP: 11/24/2022 Previous PAP test: 2018, Abnormal Other history: PETE 3 ? Material Received ?? ThinPrep-Cervical Copies To: ?? Vic Maurer MD ?? [address] ?? [place] [address] ?? [phone] ?? Albino Rocha MD ?? [address] [facility] [address] [place] [facility] ?? [place] [address] ?? [phone] ----- ------- Signed (signature on file) Sherrie Meneses Elijah 12/03/221602 ? ----- ------- ? END OF REPORT ? [facility] External Provider LAB [facility] ORDERABLES Final Result [facility] [address] [place] [address] [place] [phone] from Last 3 Months or Most Recently Relevant to Health Maintenance Insurance [employer] C3 * Guarantor: Sonia Dowell Account Type Relation to Patient Date of Phone Billing Address Personal/Family Self [address] Care Teams Office Agent Relationship Specialty Start Date End Date Vic Anne MD [address] [place] [phone] PCP - General Internal Medicine 12/10/14
--- OUTSIDE RECORDS SUMMARY | 2025-02-16 12:03 | XMS_ITS | Encounter Summary ---
Author Organization [employer] Address 75 [facility] 7t [place] [address] Care Team Providers Care It Architecture Consultant Name Role Phone Vic Anne MD Primary Care Provide r Reason for Visit * Reason Comments Med Refill Encounter Details Date Type Department Care Team ([facility] st Contact Info) Description 11/18/2024 Refill [facility] [address] [place], [place] [phone] She Stevenson, ANP [address] [place] [address] Social History Tobacco Use Types Packs/Day Years [...] Description 03/05/2025 9:30 AM EDT Office Visit [facility] [address] [place] [phone] Vic Anne MD [address] [place] [phone] documented as of this encounter Visit Diagnoses Not on filedocumented in this encounter Additional Health Concerns Assessment Noted Time PHQ-9 Depression Total Score: 2 02/28/20 23 10:07 AM EDT documented as of this encounter Care Teams It Architecture Consultant Relationship Specialty Start Date End Date Vic Anne MD [address] [place] [phone] PCP - General Internal Medicine 12/10/14 documented as of this encounter
--- OUTSIDE RECORDS SUMMARY | 2025-02-16 12:03 | XMS_ITS | Encounter Summary ---
Author Organization [employer] Address 75 [facility] 7t [place] [address] Care Team Providers Care Rim Turning Machine Operator Name Role Phone Vic Anne MD Primary Care Provide r Reason for Visit * Reason Onset Date Comments Reschedule 09/14/2023 Encounter Details Date Type Department Care Team ([facility] Contact Info) Description 09/14/2023 Telephone [facility] [address] [place], [place] [phone] Vic Anne MD [address] [place], [place] [phone] Reschedule Social History Tobacco Use Types Packs/Day [...] t he electric, gas, oil or water [employer] threatened to shut off services in your [...] Tc from pt requesting r/s 09/18 appt, field underwriter attempted to schedule no availability on September. documented in this encounter Plan of Treatment Upcoming Encounters Date Type Department Care Team (Late st Contact Info) Description 03/05/2025 9:30 AM EDT Office Visit [facility] [address] [place] [address] Vic Anne MD [address] [place] [address] documented as of this encounter Visit Diagnoses Not on filedocumented in this encounter Additional Health Concerns Assessment Noted Time PHQ-9 Depression Total Score: 2 02/28/20 23 10:07 AM EDT documented as of this encounter Care Teams Rim Turning Machine Operator Relationship Specialty Start Date End Date Vic Anne MD [address] [place] [address] PCP - General Internal Medicine 12/10/14 documented as of this encounter
[2025-02-16 12:28] LABS: HIV AB/AG Nonreactive (Nonreactive); HIV Num 1 0.09 S/CO (0.00-0.99); Hepatitis B Surface Antigen Negative (Negative); Syphilis Screen Nonreactive (Nonreactive); ~HepC Num1 0.14 S/CO (0.00-0.79); ~Hepatitis C Antibody Nonreactive (Nonreactive)
[2025-02-16 16:23] LABS: Bacterial Vaginosis PCR POSITIVE (Negative); Candida Group PCR NOT DETECTED (Not Detect); Candida glab krusei PCR NOT DETECTED (Not Detect); Trichomonas vaginalis PCR NOT DETECTED (Not Detect)
[2025-02-16 16:55] LABS: CT PCR NOT DETECTED (Not Detect.); NG PCR NOT DETECTED (Not Detect.)
== END 2025-02-16 10:06 | disposition home or self-care (01) ==
LOC: HO.LAB 10:05
PROVIDERS: PCP Internal Medicine; Visit Provider Obstetrics & Gynecology
DX: Z01.419 Encounter for gynecological examination (general) (routine) without abnormal findings (principal); Z11.3 Encounter for screening for infections with a predominantly sexual mode of transmission; Z20.2 Contact with and (suspected) exposure to infections with a predominantly sexual mode of transmission
CPT/HCPCS: 81515; 86780; 86803; 87340; 87389; 87491; 87591

== ENCOUNTER 2025-03-05 10:09 | Outpatient (REF) | payer MEDICAID, SELFPAY ==
--- NOTE | ~2025-03-05 | XR_ITS ---
EXAMINATION: XR KNEE, RIGHT CLINICAL INFORMATION: right knee pain COMPARISON: None available. TECHNIQUE: AP, lateral, oblique and sunrise views of the right knee. FINDINGS: No acute cortical disruption or malalignment. Mild joint space narrowing involving medial and lateral compartment with the mild sclerosis along the articular surface of the tibial plateau. Small to moderate suprapatellar bursa joint effusion. No lytic or blastic lesions. XR/XR knee RT 4V IMPRESSION: Mild bicompartmental osteoarthrosis. Small to moderate effusion, suprapatellar bursa. Electronically signed by: Isidoro Holloway MD 03/05/2025 11:38 AM EDT
--- OUTSIDE RECORDS SUMMARY | 2025-03-05 10:34 | XMS_ITS | Clinical Summary ---
Author Organization [employer] [facility] ity Address [address] [place] [address] Care Team Providers Care Striker Out Name Role Phone Vic Maurer MD Primary Care Provi [facility] Social History Tobacco Use Types Packs/Day Years [...] age to complete this topic Care Teams Striker Out Relationship Specialty Start Date End Date Vic Maurer MD [address] [place] [phone] PCP - General Internal Medicine 03/14/13
== END 2025-03-05 10:10 | disposition home or self-care (01) ==
LOC: HO.HHCX 10:09
PROVIDERS: Visit Provider Internal Medicine
DX: M25.561 Pain in right knee (principal)
CPT/HCPCS: 73564

== ENCOUNTER → 2025-03-05 10:10 | Outpatient (BNV) | payer MEDICAID, SELFPAY | PROVIDERS: Visit Provider Radiology Diagnostic Radiology | DX: M17.11 Unilateral primary osteoarthritis, right knee (principal); M25.461 Effusion, right knee | CPT/HCPCS: 73564 ==

== ENCOUNTER 2025-03-23 14:22 | Outpatient (REF) | payer MEDICAID, SELFPAY ==
--- OUTSIDE RECORDS SUMMARY | 2025-03-23 16:18 | XMS_ITS | Clinical Summary ---
Author Organization [employer] Address [address] [facility] [address] [place] [address] Care Team Providers Care Rehabilitation Therapy Aide Name Role Phone Vic Anne MD Primary [...] NEEDED FOR PAIN 100 g 5 Active triamcinolone (Kenalog) 0.1 % creamIndication s:Pruritus Apply to affected area right hand BID prn 30 g 2 5 Active Active Problems Problem Noted Date Diagnosed Date Acute pain of right knee 03/05/2025 Assessment & Plan (03/05/2025 9:55 AM EDT): Patient started a HIIT exercise program and her right knee has been causing her pain ever since Exam within normal limits Likely as a result of exercise. I have recommended to discuss with personal lines insurance advisor to modify her exercise routine Plan: Plain films right knee to rule out significant OA Recommended to f/u if symptoms do not go away Pruritus 03/05/2025 Assessment & Plan (03/05/2025 9:59 AM EDT): Pt c/o new onset of pruritus palm of right hand ever since starting to exercise. On exam she has a small area of erythema at the center of her palm, no palpable mass. Etiology ? Eczema ? Plan: trial of steroid cream Bilateral bunions 03/05/2025 Assessment & Plan (03/05/2025 10:00 AM EDT): Pt interested in seeing a machine puller referred Encounter for preventive health examination 01/14 Assessment & Plan (03/05/2025 9:33 AM EDT): Pt here for a routine physical exam PAP smear 11/29/2022 up to date, next one due 2027 Mammogram: 03/12/2024 Normal Assessment & Plan (02/08/2024 10:28 AM EDT): Discussed with patient re increase fresh fruit and vegetable intake. Counseled re moderate exercise as tolerated, up to 20min/d Patient feels safe at home. 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 No soft tissue mass, fluid collection, or postcontrast enhancement within this region. No acute osseous abnormality. No concerning lytic or blastic osseous lesion. Patient was also referred back to Dr. Daniels (surgical Oncology ) She no showed and Dermatology. The Business Development Analyst Dr. Duarte apparently stopped taking [facility] and she then had to be referred to a different Business Development Analyst Dr. Chan, she no showed as well. Dr. Chan requested patient called directly to schedule her appointment. Information given to patient. Agreeable with plan Assessment & Plan (01/17/2024 10:11 AM EDT): [...] neck pain Pt used to follow at [facility]. Previous work up included an MRI of her cervical spine on 10/04/2015 that aside from some spondylosis was otherwise unrevealing In the past she has done well with PT , I had recommended to continue NSAIDs since she does not want to take a muscle relaxant Previously she was referred back to [facility] but end up being seeing at the [facility] of Dr Coates at [facility]. He recommended steroid injections, back then patient declined NCS ordered to r/o radiculopathy was NEGATIVE Cervical intraepithelial neoplasia grade 2 03/28 Hx of melanoma in situ 12/26/2014 Assessment & Plan (03/05/2025 10:04 AM EDT): Pt here with c/o newly [...] the care of Dr Daniels from the [facility] and Dr. Felicia Jaime. she will continue to follow up with both. Last seen by Surgical Oncology 01/05/[address] Duarte 08/14/2023 MRI left upper extremity to evaluate palpable mass in patient with a Hx of melanoma showed: === 01/17/24 === MR HUMERUS W AND WO CONTRAST LEFT 1. Mild prominence of the subcutaneous fat in the region of the overlying skin markers without an encapsulated fat lesion. No soft tissue mass, fluid collection, or postcontrast enhancement within this region. 2. No acute osseous abnormality. No concerning lytic or blastic osseous lesion. Patient was referred back to Dr daniels surgical oncologist, she no showed to the appointment, she also no showed to the Dermatology appointment. She will call Dr Chan to reschedule her appointment Assessment & Plan (02/08/2024 10:27 AM EDT): [...] the care of Dr Daniels from the [facility] and Dr. Felicia [...] the care of Dr Daniels from the [facility] and wellness [...] Encounters Date Type Department Care Team Description 03/05/2025 9:30 AM EDT Office Visit [facility] [address] [place] [phone] Vic Anne MD Mass of left upper extremity (Primary Dx); Encounter for preventive health examination; Hx of melanoma in situ; Acute pain of right knee; Pruritus; Bilateral bunions 03/05/2025 Telephone [facility] [address] [place] [phone] Vic Anne MD Referral 03/05/2025 Travel 03/04/2025 Telephone [facility] [address] [place] [phone] Vic Anne MD chartprep 02/26/2025 Patient Outreach [facility] MED & PEDS [address] [place], [place] [phone] Vic Anne MD Pre-visit Planning (SDOH negative, Tobacco screening negative.) 02/16/2025 Orders Only GENERIC EXTERNAL DATA DEPARTMENT Provider, Generic External Data 12/26/2024 Population Health Risk Score [facility] ([facility]) Department [address] [place] [phone] Provider, Population Health Generic from Last 3 Months Immunizations Immunization Administration Dates Next Due MMR 07/07/2018 TD [...] Answer Date Recorded Patient Health Questionnaire-9 Score 6 03/05/2025 Patient Health Questionnaire-9 Score 6 03/05/2025 Last PHQ-9: Questionnaire Data Not on file 0 03/05/2025 Housing Stability Answer Date Recorded What is your housing situation today? I have maixm bey 02/26/[address] you li ve. Do you have problems with any of the following? None of the above 02/26/2025 Food Insecurity Answer Date Recorded Within the past 12 months, y ou worried that your food would run out before you got money to buy more: Never True 02/26/2025 Within the past 12 months,th e food you bought just didn't last and you didn't have enough money to get more: Never True Transportation Answer Date Recorded In the past 12 months, has l ack of transportation kept you from medical appts, meetings, work or from getting things needed for daily living? No 02/26/2025 Utilities Answer Date Recorded In the past 12 months, has t he electric, gas, oil or water company threatened to shut off services in your home? No 02/26/2025 Depression Answer Date Recorded Patient Health Questionnaire-2 Score 2 03/05/2025 Internet Access Answer Date Recorded Internet Access Q1 Yes 02/26/2025 Internet Access Q2 Not on file 02/26/2025 Comments Unknown Sex and Gender Information Value Date Recorded Sex Assigned at Female 08/14/2022 10:17 AM EDT Legal Sex Female 10:17 AM EDT Gender Identity Female 08/14/2022 10:17 AM EDT Sexual Orientation Don't know 08/14/2022 10 :17 AM EDT Last Filed Vital Signs Vital Sign Reading Time Taken Comments Blood Pressure 100/62 03/05/2025 9:30 AM EDT Pulse 70 03/05/2025 9:30 AM EDT Temperature 36.4 ??C (97.5 ??F) 03/05/2025 9:30 AM ED T Respiratory Rate 18 03/05/2025 9:30 AM EDT Oxygen Saturation 99% 03/05/2025 9:30 AM EDT Inhaled Oxygen Concentration - - Weight 56.2 kg (124 lb) 03/05/2025 9:30 AM EDT Height 165.1 cm (5' 5 ) 03/05/2025 9:30 AM EDT Body Mass Index 20.63 03/05/2025 9:30 AM EDT Plan of Treatment Upcoming Encounters Date Type Department Care Team (Late st Contact Info) Description 06/11/2025 10:15 AM EDT Office Visit [facility] [address] [place] [phone] Vic Anne MD [address] [place] [address] Health Maintenance Due Date Last Done Comments Derm Melanoma Skin Check 01/23/1985 Family Planning (PISQ) 1999 Hepatitis B Vaccines (1 of 3 - 19+ 3-dose series) 2003 COVID-19 Vaccine ( - 2023- season) 2024 04/01/2021, 03/11/2021 Tobacco Screening 02/07/2025 02/08/2024 Influenza Vaccine (Season Ended) 2025 Pap Smear 11/28/2025 11/28/2022 SDOH Screening 02/26/2026 02/26/2025 Alcohol/Substance Use Screening 03/05/2026 03/05/2025 Depression Screening 03/05/2026 03/05/2025, 03/05/20 25 Disability Screening 03/05/2026 03/05/2025 Mammogram 03/12/2026 03/12/2024 Cervical Cancer Screening 11/28/2027 HPV/Cotest 11/28/2027 11/28/2022, 06/28/2016 DTaP/Tdap/Td Vaccines (3 - Td or Tdap) 06/13/2029 06/13/2019, 06/10/2018, 12/25/2010, Additional history exists Zoster Vaccines (1 of 2) 2034 RSV Patients and Patients Aged 60 years or older (1 - 1-dose 75+ series) 2059 HIV Screening Completed 02/16/2025, 01/14, 11/28/2022, Additional history exists Hepatitis C Screening Completed 02/16/2025 , 02/07/2024, 11/28/2022, Additional history exists HIB Vaccines Aged Out [...] Procedure Name Priority Date/Time Associated Diagnosis Comments XR KNEE 4+ VIEWS RIGHT Routine 03/05/2025 10:10 AM EDT Acute pain of right knee HEPATITIS B SURFACE ANTIGEN, EIA Routine 02/16/2025 11:09 AM EDT HIV 1/2 ANTIGEN/ANTIBODY, FOURTH GENERATION W/RFL Routine 02/16/2025 11:09 AM EDT HEPATITIS C ANTIBODY Routine 02/16/2025 11:09 AM EDT SYPHILIS SCREEN Routine 02/16/2025 11:09 AM EDT CHLAMYDIA/N. GONORRHOEAE RNA, TMA, UROGENITAL Routine 02/16/2025 11:06 AM EDT BACTERIAL VAGINOSIS PANEL Routine 02/16/2025 10:05 AM EDT BI MAMMOGRAM SCREEN W GABRIELE W IMPLANTS KM Routine 03/12/2024 12:00 PM EDT HPV MRNA E6/E7 REFLEX TO HPV 16, 18/45 Routine 11/28/2022 11:41 AM EST PAP SMEAR Routine 11/28/2022 11:41 AM EST from Last 3 Months or Most Recently Relevant to Health Maintenance Results * XR Knee 4+ Views Right (03/05/2025 10:10 AM EDT) Anatomical Region Laterality Modality Lower Extremities, Knee Right [facility] 03/05/2025 10:1 0 AM EDT Narrative 03/05/2025 11:41 AM EDT ?[facility] ?[address] ?[place] [address] ?XRay Report ? Signed ? Patient: Warren Olivo,Sonia ?M ?? R#: [id number] ? : 1985 ?Acct:[id number] ? Age/Sex: 39 / F ?ADM Date: 03/05/ ? Loc: HO.HHCX ? Attending Dr: Vic Maurer MD ? Ordering Physician: Vic Maurer MD ?? Date of Service: 03/05/25 ?? Procedure(s): XR knee RT 4V ?? Accession Number(s): [id number] ? cc: Vic Maurer MD ? EXAMINATION: ?? XR KNEE, RIGHT ? CLINICAL INFORMATION: ?? right knee pain ? COMPARISON: ?? None available. ? TECHNIQUE: ?? AP, lateral, oblique and sunrise views of the right knee. ? FINDINGS: ?? No acute cortical disruption or malalignment. Mild joint space ?? narrowing involving medial and lateral compartment with the mild ?? sclerosis along the articular surface of the tibial plateau. ?? Small to moderate suprapatellar bursa joint effusion. ?? No lytic or blastic lesions. ? XR/XR knee RT 4V ?? IMPRESSION: ?? Mild bicompartmental osteoarthrosis. ?? Small to moderate effusion, suprapatellar bursa. ? Electronically signed by: ??Isidoro Holloway MD ??03/05/2025 11:38 AM ?? EDT RP ? Dictated By: ?Isidoro Taylor MD ? Signed By: ?<Electronically signed by Isidoro Ann MD in OV> ? 03/05/25 1138 ? DD/ 1010 ? TD/TT: 03/05/25 1010 ? Supervisor Force Adjustment: ? Procedure Note Jose A Pittman - 03/05/[address] [address] XRay Report Signed Patient: Kori Dowell R#: [id number] : 1985Acct:[id number] Age/Sex: 39 / FADM Date: 03/05/25 Loc: HO.HHCX Attending Dr: Vic Maurer MD Ordering Physician: Vic Maurer MD Date of Service: 03/05/25 Procedure(s): XR knee RT 4V Accession Number(s): [id number] cc: Vic Maurer MD EXAMINATION: XR KNEE, RIGHT CLINICAL INFORMATION: right knee pain COMPARISON: None available. TECHNIQUE: AP, lateral, oblique and sunrise views of the right knee. FINDINGS: No acute cortical disruption or malalignment. Mild joint space narrowing involving medial and lateral compartment with the mild sclerosis along the articular surface of the tibial plateau. Small to moderate suprapatellar bursa joint effusion. No lytic or blastic lesions. XR/XR knee RT 4V IMPRESSION: Mild bicompartmental osteoarthrosis. Small to moderate effusion, suprapatellar bursa. Electronically signed by: Isidoro Holloway MD 03/05/2025 11:38 AM EDT RP Dictated By: Isidoro Taylor MD Signed By: <Electronically signed by Isidoro Ann MDin OV> 03/05/25 1138 DD/ 1010 TD/TT: 03/05/25 1010 Supervisor Force Adjustment: us Vic Mitchell MD IMG XR PROCEDURES Paxton jamie Result - Final * Syphilis Screen (02/16/2025 11:09 AM EDT) Pathologist [facility] Syphilis Screen Nonreactive Nonreactive [facility] 02/16/2025 11:0 9 AM EDT 02/16/2025 11:09 AM EDT Generic External Data Provider LAB BLOOD ORDERAB LES Final Result Performing Organization Address [facility]/ZIP Co de Phone Number [facility] [address] [place] [phone] * Hepatitis C Ab (02/16/2025 11:09 AM EDT) Pathologist [facility] Hepatitis C Antibody Nonreactive Nonreactive [facility] Comment:Antibodies to HCV no t detected; does not exclude early acuteHCV infection. 02/16/2025 11:0 9 AM EDT 02/16/2025 11:09 AM EDT Generic External Data Provider LAB BLOOD ORDERAB LES Final Result Performing Organization Address [facility] Co de Phone Number [facility] [address] [place] [phone] * Hepatitis B surface antigen, EIA (02/16/2025 11:09 AM EDT) Hepatitis B Surface Ag Negative Negative [facility] 02/16/2025 11:0 9 AM EDT 02/16/2025 11:09 AM EDT us Generic External Data Provider LAB BLOOD ORDERAB LES Final Result Performing Organization Address [facility] Co de Phone Number [facility] [address] [place] [phone] * HIV-1/2 Antigen and Antibodies, Fourth Generation, with Reflexes (02/16/2025 11:09 AM EDT) HIV AB/AG Nonreactive Nonreactive [facility] Comment:HIV-1 p24 Ag and/or HIV-1/HIV-2 Ab not detected.A test result that is nonreactive does not exclude thepossibility of exposure to or infection with HIV-1 and/orHIV-2. Nonreactive results in this assay for individualswith prior exposure to HIV-1 and/or HIV-2 may be due toantigen and antibody levels that are below the limit ofdetection of this assay.The [employer] HIV Ag/Ab Combo assay result andsupplemental assay results should be interpreted inconjunction with the patient's clinical presentation,history and other laboratory results. If the results areinconsistent with clinical evidence, additional testing issuggested to confirm the result. 02/16/2025 11:0 9 AM EDT 02/16/2025 11:09 AM EDT us Generic External Data Provider LAB BLOOD ORDERAB LES Final Result Performing Organization Address [facility]/ZIP Co de Phone Number [facility] [address] [place] [phone] * Chlamydia/N. Gonorrhoeae RNA, TMA, Urogenitial (02/16/2025 11:06 AM EDT) CT PCR NOT DETECTED Not Detect. [facility] Comment:A not detected test result does not exclude the possibilityof infection because test results can be affected byimproper specimen collection, concurrent antibiotic therapy,or the number of organisms in the specimen which may bebelow the sensitivity of the test. As with many diagnostictests, results from the Xpert CT/NG assay should beinterpreted in conjunction with other laboratory andclinical data available to the clinician.Xpert CT/NG performance has not been evaluated in patientsless than 14 years of age. The assay should not be used forthe evaluationof suspected sexual abuse or for other medico-legalindications. Additional testing is recommended in anycircumstance when false positive or false negative resultscould lead to adverse medical, social or psychologicalconsequences. NG PCR NOT DETECTED Not Detect. [facility] Comment:A not detected test result does not exclude the possibilityof infection because test results can be affected byimproper specimen collection, concurrent antibiotic therapy,or the number of organisms in the specimen which may bebelow the sensitivity of the test. As with many diagnostictests, results from the Xpert CT/NG assay should beinterpreted in conjunction with other laboratory andclinical data available to the clinician.Xpert CT/NG performance has not been evaluated in patientsless than 14 years of age. The assay should not be used forthe evaluationof suspected sexual abuse or for other medico-legalindications. Additional testing is recommended in anycircumstance when false positive or false negative resultscould lead to adverse medical, social or psychologicalconsequences. 02/16/2025 11:0 6 AM EDT 02/16/2025 12:03 PM EDT Narrative [facility] - 02/16/2025 4:55 PM EDT Vaginal us Generic External Data Provider LAB MICROBIOLOGY - GENERAL ORDERABLES Final Result [facility] [address] [place] [address] [phone] * (ABNORMAL) Bacterial Vaginosis (02/16/2025 10:05 AM EDT) TRICHOMONAS VAGINALIS DETECTION BY PCR NOT DETECTED Not Detect [facility] BACTERIAL VAGINOSIS DETECTION BY PCR POSITIVE(A) Negative [facility] Comment:The BV organism targ ets of the Xpert Xpress MVP test can becommensal in women; Xpert Xpress MVP positive results forbacterial vaginosis should be considered in conjunction withother clinical and patient information to determine thedisease status. Organisms that are not detected by the XpertXpress MVP test have also been reported to be associatedwith BV and aerobic vaginitis.The Xpert Xpress MVP test performance has not been evaluatedin patients under the age of 14. L[employer] DETECTION BY PCR NOT DETECTED Not Detect [facility] Livia glab krusei PCR NOT DETECTED Not Detect [facility] 02/16/2025 10:0 5 AM EDT 02/16/2025 1:30 PM EDT us Generic External Data Provider LAB MICROBIOLOGY - GENERAL ORDERABLES Final Result Performing Organization Address City/State/[facility] Co de Phone Number [facility] [address] [place] [address] [phone] * BI Mammogram Screen w/ Gabriele w/ Implants Km (03/12/2024 12:00 PM EDT) Anatomical Region Laterality Modality Mammography 03/12/2024 12:0 0 PM EDT Narrative 04/07/2024 1:01 PM EDT ? [facility] ? [address] ?[place] [address] ? Mammography Report ? Signed ? Patient: Warren Olivo,Sonia ?M ?? R#: [id number] ? : 1985 ?Acct:[id number] ? Age/Sex: 38 / F ?ADM Date: 05/29/24 ? Loc: HO.MAMMO ? Attending Dr: Albino Rocha MD ? Ordering Physician: Albino Rocha MD ?Results: 2Benign ?? Findings ? Date of Service: 03/12/24 ?Follow Up: 1 Year From Orig ?? inal Mammogram ? Procedure(s): MM tomosynthesis screen imp BI ?? Accession Number(s): [id number] ? cc: Sophia Horton MD; Albino Rocha [...] 1257 ? DD/ 1200 ? TD/TT: ? Supervisor Force Adjustment: ? Procedure Note Donotuseinterpreter, Image - 04/07/2024 [facility] [address] [place], [place] [address] Mammography Report Signed Patient: Kori Dowell R#: [id number] : 1985Acct:[id number] Age/Sex: 38 / FADM Date: 03/12/24 Loc: HO.MAMMO Attending Dr: Albino Rocha MD Ordering Physician: Albino Rocha MDResults: 2Benign Findings Date of Service: 03/12/24Follow Up: 1 Year From Orig inal Mammogram Procedure(s): MM tomosynthesis screen imp BI Accession Number(s): [id number] cc: Sophia Horton MD; Albino Rocha MD [...] in OV> 04/07/24 1257 DD/ 1200 TD/TT: Supervisor Force Adjustment: [facility] External Provider IMG BI PROCEDURES Final Result * HPV mRNA E6/E7 w/Reflex to HPV Genotypes 16, 18/45 (11/28/2022 11:41 AM EST) HPV nRNA E6/E7 Not Detected Not Detected [facility] Comment:Methodology: Transcr iption-Mediated AmplificationThis assay detects E6/E7 viral messenger RNA (mRNA) from 14high-risk HPV types (16,18,31,33,35,39,45,51,52,56,58,59,66,68).Cervical sources are required for HPV testing.If a vaginal source from a patient who has had atotal hysterectomy with removal of cervix wassubmitted, please contact the testing laboratoryfor alternative testing options.For additional information, please refer tohttp://education.Docebo/faq/VPX497t5(This link if provided for information/educational purposes only.)THIS TEST WAS PERFORMED AT:[employer] [place] [phone] BOOGIE MD HPV mRNA E6/E7 [facility] HPV 16 [facility] HPV 18/45 RNA [facility] 11/28/2022 11:4 1 AM EST 11/29/2022 3:45 PM EST [facility] External Provider LAB CYT OLOGY ORDERABLES Final Result [facility] [address] [place] [phone] * Pap Smear (11/28/2022 11:41 AM EST) 11/28/2022 11:4 1 AM EST 11/29/2022 3:45 PM EST [facility] - 12/03/2022 4:03 PM EST ----- ------- Name: Sonia Dowell ? Age/Sex: 37/F ? : 1985 Unit#: [id number] ?? Attend Dr: Albino Rocha MD ?Re11/28/22 ?Status: DEP REF ? Location: .LAB ?Disch: ? ----- ------- SPEC : [id number] ? RECD: 11/29/22-1544 ? STATUS: ??SOUT ? REQ NUM: [id number] ? PATT: 11/28/22-1140 ? SUBM DR: Albino Rocha MD ? ENTERED: ??11/29/22-1657 ?SP TYPE: Pap Smr ?OTHR DR: Vic [...] 66, 68) ? HPV testing performed by [facility], [place], [place]. ??See reference laboratory ?? portion of the EMR for entire report. ?Clinical Information LMP: 11/24/2022 Previous PAP test: 2018, Abnormal Other history: PETE 3 ? Material Received ?? ThinPrep-Cervical Copies To: ?? Vic Maurer MD ?? [address] ?? [place] [address] ?? [phone] ?? Albino Rocha MD ?? [address] [place] [address] [place] [address] ?? [place] [address] ?? [phone] ----- ------- Signed (signature on file) Sherrie Nava 12/03/22 1603 ? ----- ------- ? END OF REPORT ? [facility] External Provider [facility] Final Result [facility] [address] [place] [phone] from Last 3 Months or Most Recently Relevant to Health Maintenance Insurance STANDARD Care Teams Rehabilitation Therapy Aide Relationship Specialty Start Date End Date Vic Anne MD [address] [place] [phone] PCP - General Internal Medicine 12/10/14
== END 2025-03-23 14:23 | disposition home or self-care (01) ==
LOC: HO.MAMMO 14:22
PROVIDERS: PCP Internal Medicine; Visit Provider Internal Medicine
DX: Z12.31 Encounter for screening mammogram for malignant neoplasm of breast (principal)
CPT/HCPCS: 77063; 77067

== ENCOUNTER → 2025-03-23 14:30 | Outpatient (BNV) | payer MEDICAID, SELFPAY | PROVIDERS: PCP Internal Medicine; Visit Provider Internal Medicine | DX: Z12.31 Encounter for screening mammogram for malignant neoplasm of breast (principal) | CPT/HCPCS: 77063; 77067 ==

== ENCOUNTER 2025-06-18 10:12 | Outpatient (AMB) | payer MEDICAID, SELFPAY ==
[2025-06-18 10:16] VITALS: BMI 21.5
--- NOTE | 2025-06-18 10:16 | A.OFFVIS_ITS ---
Vital Signs 06/18/25 10:16 Height 5 ft 4 in Weight 125 lb BMI 21.5 Intake Visit Reasons: vaginal burning Commercial Pest Control Technician Required: Yes Commercial Pest Control Technician Language: Solar Crew Member Services: Commercial Pest Control Technician Present (in person) Commercial Pest Control Technician Name: Bridget RAE Information Interpreted: non-clinical & clinical Sinter Machine Operator: Sinter Machine Operator Present (Bridget RAE) Accompanied by: Self / Same As Patient Allergies No Known Allergies (No Known Allergies*) Allergy (Verified 06/18/25 10:18) Is last menstrual period known: Yes Last menstrual period: 06/05/25 HPI Comments Details: Presenting complaining of vulvovaginal itching with no foul odor or discharge PFSH Medical History Hx of breast lump History of melanoma Surgical History Hx of breast augmentation Hx of oral surgery History of loop electrical excision procedure (LEEP) Hx of tubal ligation Family History Father Diabetes mellitus Mother Hypertension Maternal Grandmother History of breast cancer Maternal Aunt History of breast cancer Social History Household Members: Children Housing: Apartment Alcohol intake: current Alcohol intake frequency: holidays/special occasions only Patient Tobacco Use Status: Never used Tobacco service: No Current occupational status: employed 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 Sexual orientation: Straight/Heterosexual Gender identity: Female Female Reproductive History Menstrual Age of Menarche: 11 Date of last menstrual period: 06/05/25 Review of Systems Const All systems reviewed & are unremarkable except as noted in HPI and below Physical Exam Vital Signs: BMI result Body Mass Index 21.5 General: Yes no CVA tenderness External Female Exam: normal external appearance and normal appearance of the urethra Speculum Exam - Vagina: normal appearance of the vagina, normal palpation, no lesions and no masses Speculum Exam - Cervix: normal appearance of the cervix, normal palpation, no lesions, no masses and nontender Bimanual exam- vagina & uterus: normal bimanual exam, normal palpation, uterine size normal, normal palpation, uterine shape normal, No Cervical tenderness present and non-tender Bimanual Exam- Adnexa, other: normal adnexae Back/Spine/Pelvis Back: no CVA tenderness Assessment & Plan Assessment & Plan (1) Vulvovaginitis: Code(s): N76.0 - Acute vaginitis Category: Medical Plan: GC/CT, Bacterial Vaginosis panel taken, Terazol 0.8% q.h.s. for 3 days was sent to the patient's pharmacy. The patient was instructed to call if symptoms don't improve in 48 hours. Orders: Orders Bacterial Vaginosis Panel Today N76.0 - Acute vaginitis CT NG by PCR Vag/Cerv Today N76.0 - Acute vaginitis Medications: New terconazole 0.8% 1 appful vaginal BEDTIME 20 grams 0RF 3 days Coding Level of Care Code Est Pt Level 3 (62035) Diagnoses Vulvovaginitis N76.0
--- OUTSIDE RECORDS SUMMARY | 2025-06-18 11:29 | XMS_ITS | Encounter Summary ---
Author Organization [employer] Address 75 [facility] 7t [place] [address] Care Team Providers Care Equipment Validation Specialist Name Role Phone Vci Anne MD Primary Care Provide r Reason for Visit * Reason Comments Med Refill Encounter Details Date Type Department Care Team ([facility] st Contact Info) Description 11/18/2024 Refill [facility] MED[facility]INE [address] [place] [address] She Stevenson, ANP [address] [place] [address] Social History Tobacco Use Types Packs/Day Years [...] as of this encounter Plan of Treatment Not on file documented as of this encounter Visit Diagnoses Not on filedocumented in this encounter Additional Health Concerns Assessment Noted Time PHQ-9 Depression Total Score: 2 02/28/20 23 10:07 AM EDT documented as of this encounter Care Teams Equipment Validation Specialist Relationship Specialty Start Date End Date Vic Anne MD [address] [place] [phone] PCP - General Internal Medicine 12/10/14 documented as of this encounter
--- OUTSIDE RECORDS SUMMARY | 2025-06-18 11:29 | XMS_ITS | Encounter Summary ---
Author Organization [employer] Address 75 [facility] [address] [place] [address] Care Team Providers Care Cane Furniture Maker Name Role Phone Vic Anne MD Primary Care Provide r Reason for Visit * Reason Onset Date Comments Reschedule 09/14/2023 Encounter Details Date Type Department Care Team ([facility] Contact Info) Description 09/14/2023 Telephone [facility] MEDICINE [address] [place], [place] [phone] Vic Anne MD [address] [place], [place] [phone] Reschedule Social History Tobacco Use Types Packs/Day [...] Tc from pt requesting r/s 09/18 appt, investment underwriter attempted to schedule no availability on September. documented in this encounter Plan of Treatment Not on file documented as of this encounter Visit Diagnoses Not on filedocumented in this encounter Additional Health Concerns Assessment Noted Time PHQ-9 Depression Total Score: 2 02/28/20 23 10:07 AM EDT documented as of this encounter Care Teams Cane Furniture Maker Relationship Specialty Start Date End Date Vic Anne MD [address] [place] [phone] PCP - General Internal Medicine 12/10/14 documented as of this encounter
--- OUTSIDE RECORDS SUMMARY | 2025-06-18 11:29 | XMS_ITS | Clinical Summary ---
Author Organization [address] [facility] Address [address] [place] [address] Phone Care Team Providers Care Contract Sheltered Workshop Supervisor Name Role Phone Vic Maurer MD Primary Care [facility] Social History Tobacco Use Types Packs/Day Years [...] Screening: P ap Smear 2005 COVID-19 Vaccine ( - 2023-2 5 season) 2024 Depression Screening 10/15/2024 HIV Screening 03/07/2025 Hepatitis C Screening 03/07/2025 Social Influencers of Health Screening 03/07/2025 Influenza Vaccine (#1) 2025 HIB Vaccines Aged Out No longer [...] 5 Years) and At-Risk Patients (6 to 49 Years) Aged Out No longer eligible b ased on patient's age to complete this topic RSV Immunization Patients Un han 20 months Aged Out No longer eligible b ased on patient's age to complete this topic Varicella Vaccines Aged Out No longer eligible based on patient's age to complete this topic Insurance MEDICAID - [place] Care Teams Contract Sheltered Workshop Supervisor Relationship Specialty Start Date End Date Vic Maurer MD [address] [place] [address] [place] [address] PCP - General Internal Medicine 03/14/13
--- OUTSIDE RECORDS SUMMARY | 2025-06-18 11:29 | XMS_ITS | Clinical Summary ---
Author Organization [employer] Address 75 [facility] 7t [place] [address] Care Team Providers Care Dairy Farm Operator Name Role Phone Vic Anne MD [...] exercise. I have recommended to discuss with athletic trainer to modify her exercise routine Plan: Plain [...] AM EDT): Pt interested in seeing a seo marketing specialist referred Encounter for preventive health examination 01/14 [...] next one due 2027 Mammogram ordered by PHYSICIAN CREDENTIALING SPECIALIST Eye exam up to date, next one [...] ) She no showed and Dermatology. The Human Resource Statistician Dr. Duarte apparently stopped taking [facility] and she then had to be referred to a different Human Resource Statistician Dr. Chan, she no showed as well. [...] neck pain Pt used to follow at [facility]. Previous work up included an MRI of her cervical spine on 10/04/2015 that aside from some spondylosis was otherwise unrevealing In the past she has done well with PT , I had recommended to continue NSAIDs since she does not want to take a muscle relaxant Previously she was referred back to [facility] but end up being seeing at the Pain Clinic of Dr Coates at [facility]. He recommended steroid injections, [...] the care of Dr Daniels from the [facility] and Dr. Felicia [...] the care of Dr Daniels from the [facility] and Dr. Felicia [...] the care of Dr Daniels from the [facility] and Dr. Duarte [...] Encounters Date Type Department Care Team Description 06/10/2025 Telephone [facility]INE [address] [place] [phone] Vic Anne MD Telephone Call 03/23/2025 Orders Only [facility] External Provider, [facility] from Last 3 Months Immunizations Immunization Administration [...] housing situation today? I have maxim bey 02/26/[address] you [...] 70 03/05/2025 9:30 AM EDT Temperature 36.4 C (97.5 F) 03/05/2025 9:30 AM EDT Respiratory Rate 18 03/05/2025 9:30 AM EDT Oxygen Saturation 99% 03/05/2025 9:30 AM EDT Inhaled Oxygen Concentration - - Weight 56.2 kg (124 lb) 03/05/2025 9:30 AM EDT Height 165.1 cm (5' 5 ) 03/05/2025 9:30 AM EDT Body Mass Index 20.63 03/05/2025 9:30 AM EDT Plan of Treatment Health Maintenance Due Date Last Done Comments Derm Melanoma Skin Check 01/23/1985 Family Planning (PISQ) 1999 HPV Vaccines (1 - 3-dose series) 1999 Hepatitis B Vaccines (1 of 3 - 19+ 3-dose series) 2003 Tobacco Screening 02/07/2025 02/08/2024 COVID-19 Vaccine (3 - 2024- season) 2025 04/01/2021, 03/11/2021 Influenza Vaccine (#1) 2025 Pap Smear 11/28/2025 11/28/2022 SDOH Screening 02/26/2026 02/26/2025 Alcohol/Substance Use Screening 03/05/2026 03/05/2025 Depression Screening 03/05/2026 03/05/2025, 03/05/20 25 Disability Screening 03/05/2026 03/05/2025 Mammogram 03/23/2026 03/23/2025, 03/12/2024 Cervical Cancer Screening 11/28/2027 HPV/Cotest 11/28/2027 [...] Years) and At-Risk Patients (6 to 49) Years Aged Out No longer eligible based on patient's age to complete this topic RSV under 20 months Aged Out No longe r eligible based on patient's age to complete this topic Rotavirus Vaccines Aged Out No longer eligible based on patient's age to complete this topic Procedures Procedure Name Priority Date/Time Associated Diagnosis Comments BI MAMMOGRAM SCREEN W GABRIELE W IMPLANTS KM Routine 03/23/2025 2:30 PM EDT HEPATITIS C ANTIBODY Routine 02/16/2025 11:09 AM EDT HIV 1/2 ANTIGEN/ANTIBODY, FOURTH GENERATION W/RFL Routine 02/16/2025 11:09 AM EDT HPV MRNA E6/E7 REFLEX TO HPV 16, 18/45 Routine 11/28/2022 11:41 AM EST PAP SMEAR Routine 11/28/2022 11:41 AM EST from Last 3 Months or Most Recently Relevant to Health Maintenance Results * BI Mammogram Screen w/ Gabriele w/ Implants Km (03/23/2025 2:30 PM EDT) Anatomical Region Laterality Modality Mammography 03/23/2025 2:30 PM EDT Narrative 03/30/2025 3:25 PM EDT [facility] [address] [place] [address] Mammography Report Signed Patient: Sonia Dowell R#: [id number] : 1985 Acct:[id number] Age/Sex: 39 / F ADM Date: 03/23/25 Loc: [facility]Z Attending Dr: Vic Maurer MD Ordering Physician: Albino Rocha MD Results: 2Benign Findings Date of Service: 03/23/25 Follow Up: 1 Year From Orig inal Mammogram Procedure(s): MM tomosynthesis screen imp BI Accession Number(s): [id number] cc: Vic Maurer MD; Albino Rocha MD EXAMINATION: MM SCREENING DIGITAL BREAST TOMOSYNTHESIS, BILATERAL CLINICAL INFORMATION: Screening. Asymptomatic. COMPARISON: Mammography: Comparison is made with relevant avialable priors. TECHNIQUE: Digital mammography is performed in craniocaudal and mediolateral oblique views along with computer-aided detection (CAD). Digital breast tomosynthesis is performed in implant-displaced craniocaudal and implant-displaced mediolateral oblique views along with computer-aided detection (CAD). FINDINGS: The breasts are heterogeneously dense, which may obscure small masses (ACR BI-RADS breast composition Category c). Bilateral retropectoral saline implants are stable appearing. There are no significant masses, abnormal calcifications, or other abnormalities. MM/MM tomosynthesis screen imp BI IMPRESSION: There are no significant changes from prior study. ASSESSMENT: BI-RADS BI-RADS 2 - Benign Findings RECOMMENDATION: Routine annual mammography screening. 1 year F/U This patient's information was entered into a reminder system with a target due date for their next mammogram. Electronically signed by: Berna Acosta DO 03/30/2025 03:21 PM EDT Dictated By: Berna Acosta DO Signed By: <Electronically signed by Berna Acosta DO in OV> 03/30/25 1521 DD/ 1430 TD/TT: 03/23/25 1450 Ems Helicopter Pilot: Procedure Note Donotuseinterpreter, Image - 03/30/2025 [facility] [address] [place] [address] Mammography Report Signed Patient: Kori Dowell R#: [id number] : 1985Acct:[id number] Age/Sex: 39 / FADM Date: 03/23/25 Loc: LIZ Attending Dr: Vic Maurer MD Ordering Physician: Albino Rocha MDResults: 2Benign Findings Date of Service: 03/23/25Follow Up: 1 Year From Orig inal Mammogram Procedure(s): MM tomosynthesis screen imp BI Accession Number(s): [id number] cc: Vic Maurer MD; Albino Rocha MD EXAMINATION: MM SCREENING DIGITAL BREAST TOMOSYNTHESIS, BILATERAL CLINICAL INFORMATION: Screening. Asymptomatic. COMPARISON: Mammography: Comparison is made with relevant avialable priors. TECHNIQUE: Digital mammography is performed in craniocaudal and mediolateral oblique views along with computer-aided detection (CAD). Digital breast tomosynthesis is performed in implant-displaced craniocaudal and implant-displaced mediolateral oblique views along with computer-aided detection (CAD). FINDINGS: The breasts are heterogeneously dense, which may obscure small masses (ACR BI-RADS breast composition Category c). Bilateral retropectoral saline implants are stable appearing. There are no significant masses, abnormal calcifications, or other abnormalities. MM/MM tomosynthesis screen imp BI IMPRESSION: There are no significant changes from prior study. ASSESSMENT: BI-RADS BI-RADS 2 - Benign Findings RECOMMENDATION: Routine annual mammography screening. 1 year F/U This patient's information was entered into a reminder system with a target due date for their next mammogram. Electronically signed by: Berna Acosta DO 03/30/2025 03:21 PM EDT RP Dictated By: Berna Acosta DO Signed By: <Electronically signed by Berna Acosta DO in OV> 03/30/25 1521 DD/ 1430 TD/TT: 03/23/25 1450 Ems Helicopter Pilot: [facility] External Provider IMG BI PROCEDURES Final Result * Hepatitis C Ab (02/16/2025 11:09 AM EDT) Hepatitis C Antibody Nonreactive Nonreactive [facility] Comment:Antibodies to HCV no t detected; does not exclude early acuteHCV infection. 02/16/2025 11:0 9 AM EDT 02/16/2025 11:09 AM EDT Generic External Data Provider LAB BLOOD ORDERAB LES Final Result [facility] [address] [place] [phone] * HIV-1/2 Antigen and Antibodies, Fourth Generation, with Reflexes (02/16/2025 11:09 AM EDT) Pathologist [facility] HIV AB/AG Nonreactive Nonreactive [facility] Comment:HIV-1 p24 Ag and/or HIV-1/HIV-2 Ab not detected.A test result that is nonreactive does not exclude thepossibility of exposure to or infection with HIV-1 and/orHIV-2. Nonreactive results in this assay for individualswith prior exposure to HIV-1 and/or HIV-2 may be due toantigen and antibody levels that are below the limit ofdetection of this assay.[employer] HIV Ag/Ab Combo assay result andsupplemental assay results should be interpreted inconjunction with the patient's clinical presentation,history and other laboratory results. If the results areinconsistent with clinical evidence, additional testing issuggested to confirm the result. 02/16/2025 11:0 9 AM EDT 02/16/2025 11:09 AM EDT us Generic External Data Provider LAB BLOOD ORDERAB LES Final Result [facility] [address] [place] [phone] * HPV mRNA E6/E7 w/Reflex to HPV Genotypes 16, 18/45 (11/28/2022 11:41 AM EST) [facility] HPV nRNA E6/E7 Not Detected Not Detected [facility] Comment:Methodology: Transcr iption-Mediated AmplificationThis assay detects E6/E7 viral messenger RNA (mRNA) from 14high-risk HPV types (16,18,31,33,35,39,45,51,52,56,58,59,66,68).Cervical sources are required for HPV testing.If a vaginal source from a patient who has had atotal hysterectomy with removal of cervix wassubmitted, please contact the testing laboratoryfor alternative testing options.For additional information, please refer tohttp://education.threadsy/faq/LOZ922x9(This link if provided for information/educational purposes only.)THIS TEST WAS PERFORMED AT:[employer] [place] [phone] BOOGIE MD HPV mRNA E6/E7 TNP [facility] HPV 16 RNA TNP [facility] HPV 18/45 RNA TNP [facility] 11/28/2022 11:4 1 AM EST 11/29/2022 3:45 PM EST us [facility] External Provider LAB CYT OLOGY ORDERABLES Final Result [facility] [address] [place] [address] [phone] * Pap Smear (11/28/2022 11:41 AM EST) 11/28/2022 11:4 1 AM EST 11/29/2022 3:45 PM EST Narrative [facility] - 12/03/2022 4:03 PM EST ----- ------- Name: Sonia Dowell Age/Sex: 37/F : 1985 Unit#: [id number] Attend Dr: Albino Rocha MD Re11/28/22 Status: DEP REF Location: .LAB Disch: ----- ------- SPEC : [id number] RECD: 11/29/22 STATUS: KIRILL ANTONY NUM: [id number] PATT: 11/28/22-[address] [facility] [address]: Albino Rocha MD ENTERED: 11/29/22 SP TYPE: Pap Smr OTHR DR: Vic Maurer MD ORDERED: Pap Smear Interpretation Satisfactory for evaluation. Negative for intraepithelial lesion or malignancy. Coccobacilli consistent with shift in vaginal tran. HPV mRNA E6/E7: NOT DETECTED This assay detects E6/E7 viral messenger RNA (mRNA) from 14 high-risk HPV types (16, 18, 31, 33, 35, 39, 45, 51, 52, 56, 58, 59, 66, 68) HPV testing performed by [employer], [place], [place]. See reference laboratory portion of the EMR for entire report. Clinical Information LMP: 11/24/2022 Previous PAP test: 2018, Abnormal Other history: PETE 3 Material Received ThinPrep-Cervical Copies To: Vic Maurer MD [address] [place] [phone] Albino Rocha MD [address] [place], [place] [address]Eric [address] [address] ----- ------- Signed (signature on file) Sherrie Meneses Elijah 12/03/22 1603 ----- ------- END OF REPORT [facility] External Provider LAB CYT OLOGY ORDERABLES Final Result [facility] [address] [place] [address] [phone] from Last 3 Months or Most Recently Relevant to Health Maintenance Care Teams Dairy Farm Operator Relationship Specialty Start Date End Date Vic Anne MD [address] [place] [phone] PCP - General Internal Medicine 12/10/14
== END 2025-06-18 10:33 | disposition home or self-care (01) ==
LOC: HO.HWS 10:12
PROVIDERS: PCP Internal Medicine; Visit Provider Obstetrics & Gynecology
DX: N76.0 Acute vaginitis (principal)
CPT/HCPCS: 99213

== ENCOUNTER 2025-06-18 10:12 | Outpatient (REF) | payer MEDICAID, SELFPAY ==
[2025-06-18 16:21] LABS: Bacterial Vaginosis PCR POSITIVE (Negative); Candida Group PCR NOT DETECTED (Not Detect); Candida glab krusei PCR NOT DETECTED (Not Detect); Trichomonas vaginalis PCR NOT DETECTED (Not Detect)
[2025-06-18 16:51] LABS: CT PCR NOT DETECTED (Not Detect.); NG PCR NOT DETECTED (Not Detect.)
== END 2025-06-18 10:13 | disposition home or self-care (01) ==
LOC: HO.LNP 10:12
PROVIDERS: PCP Internal Medicine; Visit Provider Obstetrics & Gynecology
DX: N76.0 Acute vaginitis (principal); Z98.51 Tubal ligation status; Z11.3 Encounter for screening for infections with a predominantly sexual mode of transmission; Z11.8 Encounter for screening for other infectious and parasitic diseases
CPT/HCPCS: 81515; 87491; 87591; 99212

== ENCOUNTER 2025-07-29 12:18 | Outpatient (REF) | payer MEDICAID, SELFPAY ==
--- NOTE | ~2025-07-29 | XR_ITS ---
EXAMINATION: XR HAND, RIGHT CLINICAL INFORMATION: INJURY . Pain. Rule out fracture or dislocation of the thumb. COMPARISON: None available. TECHNIQUE: Four views of the right hand. FINDINGS: No visible acute fracture or dislocation. Alignment is anatomic. No suspicious bony lesion. No significant joint space narrowing. No erosions or soft tissue calcifications. XR/XR hand RT min 3V IMPRESSION: No radiographic evidence of acute osseous findings. Electronically signed by: Jairo France MD 07/29/2025 12:53 PM EDT
--- OUTSIDE RECORDS SUMMARY | 2025-07-29 11:20 | XMS_ITS | Encounter Summary ---
Author Organization [employer] Address 75 [facility] 7t [place] [address] Care Team Providers Care Sanitation Worker Hosing Machinery Name Role Phone Vic Anne MD Primary Care Provide r Reason for Visit * Reason Comments Hand Pain Encounter Details Date Type Department Care Team ([facility] Contact Info) Description 07/29/2025 11:20 AM EDT Office Visit [facility] [address] [place], [place] [phone] Right hand pain (Primary Dx) Social History Tobacco Use Types Packs/Day Years [...] AM EDT documented as of this encounter Last Filed Vital Signs Vital Sign Reading Time Taken Comments Blood Pressure 93/63 07/29/2025 11:10 AM EDT Pulse 73 07/29/2025 11:10 AM EDT Temperature 36.6 C (97.9 F) 07/29/2025 11:10 AM EDT Respiratory Rate 16 07/29/2025 11:10 AM EDT Oxygen Saturation 98% 07/29/2025 11:10 AM EDT Inhaled Oxygen Concentration - - Weight 57.2 kg (126 lb) 07/29/2025 11:10 AM EDT Height - - Body Mass Index 20.97 03/05/2025 9:30 AM EDT documented in this encounter Plan of Treatment Not on file documented as of this encounter Procedures Procedure Name Priority Date/Time Associated Diagnosis Comments XR HAND 3+ VIEWS RIGHT Routine 07/29/2025 12:39 PM EDT Right hand pain documented in this encounter Results * XR Hand 3+ Views Right (07/29/2025 12:39 PM EDT) Anatomical Region Laterality Modality Upper Extremities, Hand Right Radiogra [facility] Imaging 07/29/2025 12:3 9 PM EDT Narrative 07/29/2025 12:56 PM EDT [address] [address] XRay Report Signed Patient: Sonia Dowell#: [id number] : 1985 Acct:[id number] Age/Sex: 40 / F ADM Date: 07/29/25 [facility]: Sheryl Ventura MD Ordering Physician: Sheryl Pereira MD Date of Service: 07/29/25 Procedure(s): XR hand RT min 3V Accession Number(s): [id number] cc: Sheryl Pereira MD Reason for Exam: INJURY EXAMINATION: XR HAND, RIGHT CLINICAL INFORMATION: INJURY . Pain. Rule out fracture or dislocation of the thumb. COMPARISON: None available. TECHNIQUE: Four views of the right hand. FINDINGS: No visible acute fracture or dislocation. Alignment is anatomic. No suspicious bony lesion. No significant joint space narrowing. No erosions or soft tissue calcifications. XR/XR hand RT min 3V IMPRESSION: No radiographic evidence of acute osseous findings. Electronically signed by: Jairo France MD 07/29/2025 12:53 PM EDT RP Dictated By: Jairo France MD Signed By: <Electronically signed by Jairo France MD in OV> 07/29/25 1253 DD/ 1239 TD/TT: 07/29/25 1240 Director Of Home Economics: Procedure Note Donotuseinterpreter, Image - 07/29/2025 [place] [address] XRay Report Signed Patient: Kori Dowell R#: [id number] : 1985Acct:[id number] Age/Sex: 40 / FADM Date: 07/29/25 Loc: HO.HHX Attending Dr: Sheryl Ventura MD Ordering Physician: Sheryl Pereira MD Date of Service: 07/29/25 Procedure(s): XR hand RT min 3V Accession Number(s): [id number] cc: Sheryl Pereira MD Reason for Exam: INJURY EXAMINATION: XR HAND, RIGHT CLINICAL INFORMATION: INJURY . Pain. Rule out fracture or dislocation of the thumb. COMPARISON: None available. TECHNIQUE: Four views of the right hand. FINDINGS: No visible acute fracture or dislocation. Alignment is anatomic. No suspicious bony lesion. No significant joint space narrowing. No erosions or soft tissue calcifications. XR/XR hand RT min 3V IMPRESSION: No radiographic evidence of acute osseous findings. Electronically signed by: Jairo France MD 07/29/2025 12:53 PM EDT RP Dictated By: Jairo France MD Signed By: <Electronically signed by Jairo France MD in OV> 07/29/25 1253 DD/ 1239 TD/TT: 07/29/25 1240 Director Of Home Economics: OUSMANE Sheryl Ventura MD IMG XR PROCEDURES Final Result documented in this encounter Visit Diagnoses Diagnosis Right hand pain- Primary Pain in soft tissues of limb documented in this encounter Additional Health Concerns Assessment Noted Time PHQ-9 Depression Total Score: 6 03/05/20 25 10:02 AM EDT documented as of this encounter Care Teams Sanitation Worker Hosing Machinery Relationship Specialty Start Date End Date Vic Anne MD [address] [place] [phone] PCP - General Internal Medicine 12/10/14 documented as of this encounter
--- OUTSIDE RECORDS SUMMARY | 2025-07-29 15:34 | XMS_ITS | Clinical Summary ---
Author Organization [facility] Address [address] [place] [address] Phone Care Team Providers Care Pouring Crane Operator Name Role Phone Vic Maurer MD Primary Care Provi [facility] Social History Tobacco Use Types [...] Cervical Cancer Screening: P ap Smear 2005 HPV Vaccines (1 - 3-dose SCD M series) 2011 Depression Screening 10/15/2024 HIV Screening 03/07/2025 Hepatitis C Screening 03/07/2025 Social Influencers of Health Screening 03/07/2025 COVID-19 Vaccine ( - 2023-2 5 season) 2025 Influenza Vaccine (#1) 2025 RSV Immunization Adult Patie nts (1 - 1-dose 75+ series) 2059 HIB Vaccines Aged Out No longer eligi [...] topic Insurance MEDICAID - [place] Care Teams Pouring Crane Operator Relationship Specialty Start Date End Date Vic Maurer MD [address] [place] [phone] PCP - General Internal Medicine 03/14/13
--- OUTSIDE RECORDS SUMMARY | 2025-07-29 15:34 | XMS_ITS | Clinical Summary ---
Author Organization [facility] Address [address] [facility] 7t [place] [address] Care Team Providers Care Remote Control Assembler Name Role Phone Vic Anne MD Primary [...] BID prn 30 g 2 5 Active ibuprofen 600 MG tabletIndicatio ns:Right hand pain Take 1 tablet (600 mg) by mouth every 12 (twelve) hours if needed for moderate pain or fever for up to 15 days. 15 tablet 5 08/13/20 25 Active Active Problems Problem Noted Date Diagnosed Date Acute pain of right knee 03/05/2025 Assessment & Plan (03/05/2025 9:55 AM EDT): Patient started a HIIT exercise program and her right knee has been causing her pain ever since Exam within normal limits Likely as a result of exercise. I have recommended to discuss with personal care service provider to modify her exercise routine Plan: Plain [...] AM EDT): Pt interested in seeing a bricklayer helper referred Encounter for preventive health examination 01/14 [...] next one due 2027 Mammogram ordered by [facility] exam up to date, next one [...] ) She no showed and Dermatology. The Intervention Analyst Dr. Duarte apparently stopped taking [facility] and she then had to be referred to a different Intervention Analyst Dr. Chan, she no showed as [...] Pt used to follow at [facility]. Previous work up included an MRI of her cervical spine on 10/04/2015 that aside from some spondylosis was otherwise unrevealing In the past she has done well with PT , I had recommended to continue NSAIDs since she does not want to take a muscle relaxant Previously she was referred back to [facility] but end up being seeing at the Pain Clinic of Dr Coates at [facility]. He recommended steroid [...] the care of Dr Daniels from the [facility] and Dr. Duarte [...] the care of Dr Daniels from the [facility] and Dr. Duarte [...] the care of Dr Daniels from the [facility] and Dr. Duarte [...] Encounters Date Type Department Care Team Description 07/29/2025 11:20 AM EDT Office Visit [facility] [address] [place] [address] Right hand pain (Primary Dx) 07/29/2025 Results Follow-Up [facility] [address] [place] [address] Sheryl Pereira MD XR Hand 3+ Views Right 07/29/2025 Travel 07/28/2025 Travel 06/18/2025 Orders Only GENERIC EXTERNAL DATA DEPARTMENT Provider, Generic External Data 06/10/2025 Telephone [facility] [address] [place] [address] Vic Anne MD Telephone Call from Last 3 Months Immunizations Immunization Administration [...] (126 lb) 07/29/2025 11:10 AM EDT Height 165.1 cm (5' 5 ) 03/05/2025 9:30 AM EDT Body Mass Index 20.97 03/05/2025 9:30 AM EDT Plan of Treatment Health Maintenance Due Date Last Done Comments Derm Melanoma Skin Check 01/23/1985 Family Planning (PISQ) 1999 HPV Vaccines (1 - 3-dose series) 1999 Hepatitis B Vaccines (1 of 3 - 19+ 3-dose series) 2003 COVID-19 Vaccine ( season) 2025 04/01/2021, 03/11/2021 Influenza Vaccine (#1) 2025 Pap Smear 11/28/2025 11/28/2022 SDOH Screening 02/26/2026 02/26/2025 Alcohol/Substance Use Screening 03/05/2026 03/05/2025 Depression Screening 03/05/2026 03/05/2025, 03/05/20 25 Disability Screening 03/05/2026 03/05/2025 Mammogram 03/23/2026 03/23/2025, 03/12/2024 Tobacco Screening 07/29/2026 07/29/2025 Cervical Cancer Screening 11/28/2027 HPV/Cotest 11/28/2027 11/28/2022, [...] 07/29/2025 12:39 PM EDT Right hand pain CHLAMYDIA/N. GONORRHOEAE RNA, TMA, UROGENITAL Routine 06/18/2025 10:12 AM EDT BACTERIAL VAGINOSIS PANEL Routine 06/18/2025 10:12 AM EDT BI MAMMOGRAM SCREEN W GABRIELE [...] Relevant to Health Maintenance Results * XR Hand 3+ Views Right (07/29/2025 12:39 PM EDT) Anatomical Region Laterality Modality Upper Extremities, Hand Right Radiogra phic Imaging 07/29/2025 12:3 9 PM EDT Narrative 07/29/2025 12:56 PM EDT [address] [address] XRay Report Signed Patient: Sonia Dowell R#: [id number] : 1985 Acct:[id number] Age/Sex: 40 / F ADM Date: 07/29/25 Loc: HO.HHCX Attending Dr: Sheryl Ventura MD Ordering Physician: Sheryl Pereira MD Date of Service: 07/29/25 Procedure(s): XR hand RT min 3V Accession Number(s): [id number] cc: Sheryl Pereira MD Reason for Exam: [...] Jairo France MD 07/29/2025 12:53 PM EDT Dictated By: Jairo France MD Signed By: <Electronically signed by Jairo France MD in OV> 07/29/25 1253 DD/ 1239 TD/TT: 07/29/25 1240 Category Development Manager: OUSMANE Procedure Note Donotuseinterpreter, Image - 07/29/[address] [address] XRay Report Signed Patient: Kori Dowell R#: [id number] : 1985Acct:[id number] Age/Sex: 40 / FADM Date: 07/29/25 Loc: HO.HHCX Attending Dr: Sheryl Ventura MD Ordering Physician: Sheryl Pereira MD Date of Service: 07/29/25 Procedure(s): XR hand RT min 3V Accession Number(s): [id number] cc: Sheryl Pereira MD Reason for Exam: [...] 07/29/25 1253 DD/ 1239 TD/TT: 07/29/25 1240 Category Development Manager: OUSMANE Sheryl Ventura MD IMG XR PROCEDURES Final Result * (ABNORMAL) Bacterial Vaginosis (06/18/2025 10:12 AM EDT) TRICHOMONAS VAGINALIS DETECTION BY PCR NOT DETECTED Not Detect [facility] BACTERIAL VAGINOSIS DETECTION BY PCR POSITIVE(A) Negative [facility] Comment:The BV organism targ ets of [...] DETECTION BY PCR NOT DETECTED Not Detect [facility] Livia glab krusei PCR NOT DETECTED Not Detect [facility] 06/18/2025 10:1 2 AM EDT 06/18/2025 2:47 PM EDT us Generic External Data Provider LAB MICROBIOLOGY - GENERAL ORDERABLES Final Result [facility] [address] [place] [address] [phone] * Chlamydia/N. Gonorrhoeae RNA, TMA, Urogenitial (06/18/2025 10:12 AM EDT) CT PCR NOT DETECTED Not Detect. [facility] Comment:A not detected test result does [...] psychologicalconsequences. NG PCR NOT DETECTED Not Detect. [facility] Comment:A not detected test result does [...] lead to adverse medical, social or psychologicalconsequences. 06/18/2025 10:1 2 AM EDT 06/18/2025 2:47 PM EDT us Generic External Data Provider LAB MICROBIOLOGY - GENERAL ORDERABLES Final Result [facility] [address] [place] [address] [phone] * BI Mammogram Screen w/ Gabriele w/ Implants Mk (03/23/2025 2:30 PM EDT) Anatomical Region Laterality Modality Mammography 03/23/2025 2:30 PM EDT Narrative 03/30/2025 3:25 PM EDT [address] [place] [address] Mammography Report Signed Patient: Sonia Dowell Lori#: [id number] : 1985 Acct:[id number] Age/Sex: 39 / F ADM Date: 03/23/25 Loc: HO.MAMMO Attending Dr: Vic Maurer MD Ordering Physician: Albino Rocha MD Results: 2Benign Findings Date of Service: 03/23/25 Follow Up: 1 Year From [facility] Mammogram Procedure(s): MM tomosynthesis screen imp BI Accession Number(s): [id number] cc: Vic Maurer MD; Albino Rocha MD [...] 03/30/25 1521 DD/ 1430 TD/TT: 03/23/25 1450 Category Development Manager: Procedure Note Donotuseinterpreter, Image - 03/30/2025 [facility] [address] [place] [address] Mammography Report Signed Patient: Kori Dowell R#: [id number] : 1985Acct:[id number] Age/Sex: 39 / FADM Date: 03/23/25 Loc: MAMMO Attending Dr: Vic Maurer MD Ordering Physician: Albino Rochaesults: 2Benign Findings Date of Service: 03/23/25Follow Up: 1 Year From Orig inal Mammogram Procedure(s): MM tomosynthesis screen imp BI Accession Number(s): [id number] cc: Vic Maurer MD; Albino Rocha MD [...] 03/30/25 1521 DD/ 1430 TD/TT: 03/23/25 1450 Category Development Manager: [facility] External Provider IMG BI PROCEDURES Final Result * Hepatitis C Ab (02/16/2025 11:09 AM EDT) Hepatitis C Antibody Nonreactive Nonreactive [facility] Comment:Antibodies to HCV no t detected; does not exclude early acuteHCV infection. 02/16/2025 11:0 9 AM EDT 02/16/2025 11:09 AM EDT Generic External Data Provider LAB BLOOD ORDERAB LES Final Result [facility] [address] [place] [phone] * HIV-1/2 Antigen and Antibodies, Fourth Generation, with Reflexes (02/16/2025 11:09 AM EDT) HIV AB/AG Nonreactive Nonreactive [facility] Comment:HIV-1 p24 Ag and/or HIV-1/HIV-2 Ab not detected.A test result that is nonreactive does not exclude thepossibility of exposure to or infection with HIV-1 and/orHIV-2. Nonreactive results in this assay for individualswith prior exposure to HIV-1 and/or HIV-2 may be due toantigen and antibody levels that are below the limit ofdetection of this assay.The [employer] HIV Ag/Ab Combo assay result andsupplemental assay results should be interpreted inconjunction with the patient's clinical presentation,history and other laboratory results. If the results areinconsistent with clinical evidence, additional testing issuggested to confirm the result. 02/16/2025 11:0 9 AM EDT 02/16/2025 11:09 AM EDT us Generic External Data Provider LAB BLOOD ORDERAB LES Final Result [facility] [address] [place] [address] [phone] * HPV mRNA E6/E7 w/Reflex to HPV Genotypes 16, 18/45 (11/28/2022 11:41 AM EST) HPV nRNA E6/E7 Not Detected Not Detected [facility] Comment:Methodology: Transcr iption-Mediated AmplificationThis assay detects E6/E7 viral messenger RNA (mRNA) from 14high-risk HPV types (16,18,31,33,35,39,45,51,52,56,58,59,66,68).Cervical sources are required for HPV testing.If a vaginal source from a patient who has had atotal hysterectomy with removal of cervix wassubmitted, please contact the testing laboratoryfor alternative testing options.For additional information, please refer tohttp://education.Peopleclick Authoria/faq/TJF014v9(This link if provided for information/educational purposes only.)THIS TEST WAS PERFORMED AT:[employer] [place] [phone] BOOGIE MD HPV mRNA E6/E7 [facility] HPV 16 RNA [facility] HPV 18/45 RNA [facility] 11/28/2022 11:4 1 AM EST 11/29/2022 3:45 PM EST us [facility] External Provider LAB CYT OLOGY ORDERABLES Final Result [facility] [address] [place] [address] [phone] * Pap Smear (11/28/2022 11:41 AM EST) 11/28/2022 11:4 1 AM EST 11/29/2022 3:45 PM EST Narrative [facility] - 12/03/2022 4:03 PM EST ----- ------- Name: Sonia Dowell Age/Sex: 37/F : 1985 Unit#: [id number] Attend Dr: Albino Rocha MD Re11/28/22 Status: DEP [facility] Disch: ----- ------- SPEC : [id number] RECD: 11/29/220336 STATUS: KIRILL ANTONY NUM: [id number] PATT: 11/28/22-[address] [facility] [address]: Albino Rocha MD ENTERED: 11/29/22 [...] 59, 66, 68) HPV testing performed by [employer], [place], [place]. See reference laboratory portion of the EMR for entire report. Clinical Information LMP: 11/24/2022 Previous PAP test: 2018, Abnormal Other history: PETE 3 Material Received ThinPrep-Cervical Copies To: Vic Maurer MD [address] [place] [address] Albino Rocha MD [address] [place] [address] Dr. [place] [address] [place] [phone] ----- ------- Signed (signature on file) Sherrie Nava 12/03/22 1603 ----- ------- END OF REPORT [facility] External Provider LAB CYT OLNATHAN ORDERABLES Final Result [facility] [address] [place] [phone] from Last 3 Months or Most Recently Relevant to Health Maintenance Insurance C3 Care Teams Remote Control Assembler Relationship Specialty Start Date End Date Vic Anne MD [address] [place] [phone] PCP - General Internal Medicine 12/10/14
--- OUTSIDE RECORDS SUMMARY | 2025-07-29 15:34 | XMS_ITS | Encounter Summary ---
Author Organization [employer] Address [address] [facility] 7t [place] [address] Care Team Providers Care Lithographic Press Feeder Name Role Phone Vic Anne MD Primary Care Provide r Encounter Details Date Type Department Care Team (Latest Contact Info) Description 07/28/2025 Travel Social History Tobacco Use Types Packs/Day Years [...] documented as of this encounter Care Teams Lithographic Press Feeder Relationship Specialty Start Date End Date Vic Anne MD [address] [place] [phone] PCP - General Internal Medicine 12/10/14 documented as of this encounter
--- OUTSIDE RECORDS SUMMARY | 2025-07-29 15:34 | XMS_ITS | Encounter Summary ---
Author Organization [employer] Address [address] [facility] 7t [place] [address] Care Team Providers Care Manager Psychiatry Name Role Phone Vic Anne MD Primary Care Provide r Encounter Details Date Type Department Care Team (Latest Contact Info) Description 07/29/2025 Travel Social History Tobacco Use Types Packs/Day [...] documented as of this encounter Care Teams Manager Psychiatry Relationship Specialty Start Date End Date Vic Anne MD [address] [place] [phone] PCP - General Internal Medicine 12/10/14 documented as of this encounter
--- OUTSIDE RECORDS SUMMARY | 2025-07-29 15:34 | XMS_ITS | Encounter Summary ---
Author Organization [employer] Address [address] [facility] 7t [place] [address] Care Team Providers Care Inspector Radar And Electronics Name Role Phone Vic Anne MD Primary Care Provide r Encounter Details Date Type Department Care Team ([facility] st Contact Info) Description 07/29/2025 Results Follow-Up [facility] [address] [place] [address] Sheryl Pereira MD [address] [place] [address] XR Hand 3+ Views Right Social History Tobacco Use Types Packs/Day Years [...] documented as of this encounter Care Teams Inspector Radar And Electronics Relationship Specialty Start Date End Date Vic Anne MD [address] [place] [address] PCP - General Internal Medicine 12/10/14 documented as of this encounter
--- OUTSIDE RECORDS SUMMARY | 2025-07-29 15:34 | XMS_ITS | Encounter Summary ---
Author Organization [employer] Address [address] [facility] 7t [place] [address] Care Team Providers Care Janitor Caretaker Name Role Phone Vic Anne MD Primary Care Provide r Reason for Visit * Reason Comments Med Refill Encounter Details Date Type Department Care Team ([facility] st Contact Info) Description 11/18/2024 Refill [facility] [address] [place] [address] She Stevenson, ANP [address] [place] [address] Social History Tobacco Use Types Packs/Day Years [...] documented as of this encounter Care Teams Janitor Caretaker Relationship Specialty Start Date End Date Vic nAne MD [address] [place] [phone] PCP - General Internal Medicine 12/10/14 documented as of this encounter
--- OUTSIDE RECORDS SUMMARY | 2025-07-29 15:34 | XMS_ITS | Encounter Summary ---
Author Organization [employer] Address [address] [facility] [address] [place] [address] Care Team Providers Care At Risk Specialist Name Role Phone Vic Anne MD Primary Care Provide r Reason for Visit * Reason Onset Date Comments Reschedule 09/14/2023 Encounter Details Date Type Department Care Team ([facility] Contact Info) Description 09/14/2023 Telephone [facility] [address] [place], [place] [phone] Vic Anne MD [address] [place], [place] [phone] Reschedule Social History Tobacco Use Types Packs/Day [...] Tc from pt requesting r/s 09/18 appt, personal lines underwriter attempted to schedule no availability on September. documented in this encounter Plan of Treatment Not on file documented as of this encounter Visit Diagnoses Not on filedocumented in this encounter Additional Health Concerns Assessment Noted Time PHQ-9 Depression Total Score: 2 02/28/20 23 10:07 AM EDT documented as of this encounter Care Teams At Risk Specialist Relationship Specialty Start Date End Date Vic Anne MD [address] [place] [phone] PCP - General Internal Medicine 12/10/14 documented as of this encounter
== END 2025-07-29 12:19 | disposition home or self-care (01) ==
LOC: HO.HHCX 12:18
PROVIDERS: Visit Provider Student in an Organized Health Care Education/Training Program
DX: M79.641 Pain in right hand (principal)
CPT/HCPCS: 73130

== ENCOUNTER → 2025-07-29 12:20 | Outpatient (BNV) | payer MEDICAID, SELFPAY | PROVIDERS: Visit Provider Radiology Diagnostic Ultrasound | DX: M79.644 Pain in right finger(s) (principal) | CPT/HCPCS: 73130 ==